=== PATIENT | female | born 1955 | race Caucasian/White ===

== ENCOUNTER 2017-05-23 15:58 | Outpatient (CLI) | payer BC ==
--- NOTE | 2017-05-23 17:19 | CT ---
LOW DOSE CT LUNG SCAN: HISTORY: The patient has a history of right lung malignancy and resection and COPD. COMPARISON: PET scan from 05/10/2015. FINDINGS: There are postoperative changes of the right upper lobe. There is what appears to be a partial lobec marylou. There is some dystrophic calcification lying along the medial aspect of the major fissure. Th e right upper lobe pulmonary nodule is no longer seen. There is fullness in the right hilar region. There are surgical clips in this region and along the right side of the mediastinum. There are righ t paratracheal nodes and some slightly prominent nodes at the level of the great vessels. These are fairly similar in appearance to the previous PET scan examination. There are no pulmonary nodules identified. No pleural effusions. There are arthritic changes of the spine seen. Lung-RADS category 4C. The patient has known malignancy. There is more prominence to the right deanna r region, as compared to the prior examination. I am not certain whether this is related to partial lobectomy change or adenopathy in this region. A contrast CT examination would be recommended for as sessment. POS: [facility]
== END 2017-05-23 15:59 | disposition home or self-care (01) ==
LOC: CT 15:58
PROVIDERS: ATTEND Family Medicine
DX: Z12.2 Encounter for screening for malignant neoplasm of respiratory organs (principal)
CPT/HCPCS: G0297

== ENCOUNTER 2017-10-11 06:06 | Inpatient (IN) | payer BC ==
[2017-10-11 06:28] LABS: Hemoglobin 15.2 g/dL (12.0-16.0); Mean Corpuscular HGB CONC 34.1 g/dL (32.0-36.0); Mean Corpuscular Hemoglobin 36.2 pg (27.0-31.0); Mean Platelet Volume 7.1 fL (7.4-10.4); Platelet Count 191 thou/uL (130-400); RBC Distribution Width 12.3 % (11.5-14.5); White Blood Cell (WBC) Count 9.8 thou/uL (4.8-10.8)
[2017-10-11 06:34] LABS: PTT 24.9 SEC (22.9-36.1); Prothrombin Time 13.6 SEC (12.0-14.7)
[2017-10-11 06:52] LABS: #Eosinphils 0.2 thou/uL (0.0-0.7); #Lymphocytes 1.9 thou/uL (1.20-3.40); #Monocytes 0.6 thou/uL (0.11-0.59); %Basophils 0.4 % (0.0-1.0); %Eosinophils 2.1 % (0.0-10.0); %Lymphocytes 19.5 % (21.0-51.0); %Monocytes 6.4 % (0.0-10.0); %Neutrophils 71.6 % (42.0-75.0); MDiff Complete? YES; Macrocytosis SLIGHT = 6-15 cells (100X) (0-5/hpf); PLT Morphology Comment Appears Adequate
[2017-10-11 06:59] LABS: Troponin I Less than 0.010 ng/mL (< 0.028)
[2017-10-11 07:03] LABS: CKMB 8.7 ng/mL (0-6.6)
[2017-10-11 07:05] LABS: ALT (SGPT) 18 U/L (8-55); AST (SGOT) 33 U/L (5-34); Albumin 4.2 g/dL (3.4-4.8); Alkaline Phosphatase 68 U/L (40-150); Anion Gap 11 mmol/L (10-20); BUN (Urea Nitrogen) 14 mg/dL (9.8-20.1); Bilirubin, Total 0.4 mg/dL (0.2-1.2); CK (CPK) 484 U/L (29-168); Calc. Creatinine Clearance 0 mL/min (70-130); Calcium 9.4 mg/dL (7.8-10.44); Carbon Dioxide 34 mmol/L (23-31); Chloride 99 mmol/L (98-107); Estimated GFR-MDRD 75; Globulin 3.8 g/dL (2.4-3.5); Glucose 127 mg/dL (80-115); Sodium 139 mmol/L (136-145)
[2017-10-11 07:58] LABS: Acetaminophen Less than 6.0 mcg/mL (10.0-30.0); Alcohol Less than 10 mg/dL (Less than 10); Salicylate Less than 8.0 mg/dL (15.0-30.0)
[2017-10-11] MEDS ORDERED: Naloxone HCl 0.4 mg/ml Vial ONE (07:59)
[2017-10-11] MEDS ORDERED: Acetaminophen 325 MG TAB PO PRN (08:06)
[2017-10-11] MEDS ORDERED: Ondansetron HCl/PF 4 MG/2 ML Vial IVP PRN (08:06)
--- NOTE | 2017-10-11 08:11 | RAD ---
SINGLE VIEW OF THE CHEST: COMPARISON: 10/06/15. HISTORY: Dyspnea. FINDINGS: A single view of the chest shows a cardiomediastinal silhouette which is upper limits of normal in si ze. Atelectasis is seen in the right lung base, unchanged. A small right pleural effusion may also be present. No left pleural effusion is seen. Hardware is seen in the cervical spine. IMPRESSION: Right basilar atelectasis with possible small adjacent pleural effusion. POS: [facility]
--- NOTE | 2017-10-11 08:36 | CT ---
PRELIMINARY REPORT/[facility]/EMERGENTY AFTER-HOURS PROCEDURE Addendum created by Gilson Mayo MD on 10/11/2017 6:32 AM Central Time ([place] & [place]) The findings were verbally communicated via telephone conference with Dr. Soni Olivares at 7:30 AM EDT on 10/11/2017. The findings were acknowledged and understood. Initial Report created on 10/11/2017 6:29 AM Central Time ([place] & [place]) CT Head Without Intravenous Contrast EXAM DATE/TIME: 10/11/2017 6:17 AM CLINICAL HISTORY: 62 years old, female; Speech disturbance and weakness, extremity; Right; Slurred speech; Stroke alert . PT was last seen normal last night around 2144. right arm weakness. multiple falls over the weekend . TECHNIQUE: Axial computed tomography images of the head/brain without intravenous contrast. COMPARISON: No relevant prior studies available. FINDINGS: Brain: No midline shift, mass effect, or intracranial hemorrhage. Brain parenchyma unremarkable. Ventricles: Unremarkable. No ventriculomegaly. Bones/joints: Unremarkable. Sinuses: Unremarkable. Mastoid air cells: Unremarkable. Soft tissues: Unremarkable. Vasculature: Bilateral, intracranial, internal carotid artery atherosclerotic calcifications. IMPRESSION: Unremarkable CT head without contrast. ASPECTS Score is 10. MR head may be helpful if there remains strong clinical suspicion for recent ischemic infarct (and th ere are no contraindications). Thank you for allowing us to participate in the care of your patient. Dictated and Authenticated by: Gilson Mayo MD 10/11/2017 6:29 AM Central Time ([place] & [place]) FINAL REPORT STROKE ALERT CT BRAIN WITHOUT CONTRAST: IMPRESSION: I agree with the preliminary report provided. No acute intracranial abnormality is demonstrated. POS: [facility]
--- NOTE | 2017-10-11 08:45 | CT ---
PRELIMINARY REPORT/[facility]/EMERGENTY AFTER-HOURS PROCEDURE Addendum created by Gilson Mayo MD on 10/11/2017 7:06 AM Central Time ([place] & [place]) CT Angiography Head With Intravenous Contrast CT Angiography Neck With Intravenous Contrast CLINICAL HISTORY: 62 years old, female; Speech disturbance and weakness; Slurred speech; Stroke alert . PT was last seen normal last night around 2144. PT is having some slurred speech with some right ar m weakness. PT has had multiple falls over the weekend. TECHNIQUE: Axial computed tomographic angiography images of the head with intravenous contrast using CT angiography protocol. MIP reconstructed images were created and reviewed. COMPARISON: CT Head without contrast 10/11/2017 6:17 AM FINDINGS: Head: Both intracranial vertebral, basilar, and both posterior cerebral arteries appear unremarkable. Bilateral, intracranial, internal carotid artery atherosclerotic calcifications. Both middle cerebra l and both anterior cerebral arteries are unremarkable. Neck: Aortic arch shows mild calcified atherosclerotic plaque. Left subclavian artery origin shows moderate calcified atherosclerotic plaque causing no significant stenosis. Both vertebral artery cervical segment is unremarkable. Right carotid artery bifurcation shows mild calcified atherosclerotic plaque causing mild stenosis (a bout 10% diameter stenosis) of right common carotid artery's distal-most aspect. Left carotid artery bifurcation shows moderate calcified atherosclerotic plaque causing mildto- moder ate stenosis (about 30-40% diameter stenosis by NASCET criteria) of left internal carotid artery's p roximal-most aspect. Anterior cervical spinal fusion hardware at C4-C7. Partially-imaged bilateral pleural effusions. Multiple surgical clips in right pulmonary hilum. IMPRESSION: 1. CTA head with contrast shows no large intracranial arterial occlusion. 2. CTA neck with contrast shows: Right carotid artery bifurcation shows mild calcified atherosclerotic plaque causing mild stenosis (a bout 10% diameter stenosis) of right common carotid artery's distal-most aspect. Left carotid artery bifurcation shows moderate calcified atherosclerotic plaque causing mild tomodera te stenosis (about 30-40% diameter stenosis by NASCET criteria) of left internalcarotid artery's prox imal-most aspect. Left subclavian artery origin shows moderate calcified atherosclerotic plaque causing no significant stenosis. MR head may be helpful if there remains strong clinical suspicion for recent ischemic infarct (and th ere are no contraindications). This Report Contains Findings That May Be Critical To Patient Care. The findings were verbally commun icated via telephone conference with Dr. Soni Olivares at 7:48 AM EDT on 10/11/2017. The findings were a cknowledged and understood. Initial Report created on 10/11/2017 6:45 AM Central Time ([place] & [place]) CT Angiography Head With Intravenous Contrast TECHNIQUE: Axial computed tomographic angiography images of the head with intravenous contrast using CT angiography protocol. MIP reconstructed images were created and reviewed. COMPARISON: CT Brain WO Con 10/11/2017 6:17 AM Thank you for allowing us to participate in the care of your patient. Dictated and Authenticated by: Gilson Mayo MD 10/11/2017 6:45 AM Central Time ([place] & [place]) FINAL REPORT CTA OF THE HEAD AND CTA OF THE NECK UTILIZING IV CONTRAST AND 3D VOLUME RENDERING: IMPRESSION: I agree with the preliminary report provided. No hemodynamically significant stenosis, occlusion, or aneurysmal formation is demonstrated. No appreciable narrowing is seen involving the right internal carotid artery. There is some eccentric partially calcified atherosclerotic plaque involving the pr oximal left internal carotid artery with no hemodynamically significant stenosis. The vertebral homero toña appear patent throughout their visualized course. Incidental note is made of an ADCF plate exte nding from C4 through C7. No area of abnormal enhancement is seen within the brain. No definite abn ormality is seen within the prevertebral soft tissues or along the aerodigestive tract. No lymphaden opathy is evident. There is a small left pleural effusion. There are patchy opacities within the le ft upper lobe which may reflect pneumonia. Recommend correlation. POS: [facility]
--- NOTE | 2017-10-11 08:57 | HP ---
PRIMARY CARE PROVIDER: Dr. Nahid Mitchell. CHIEF COMPLAINT: Referred to the [facility] service by [facility] for po ssible stroke. HISTORY OF PRESENT ILLNESS: Patient's illness started 2 days ago with slurred speech, difficulty sta nding up, she fell yesterday. She had somewhat improved speech, was able to stand, but was noted to be ataxic. This morning, her speech was very slurred. She could not get up and could not stand up. She gives no history of double vision. She is a bit somnolent, was noted to have O2 saturations in the 70s and 80s. Currently, is 90 on O2. She has a long history of smoking. She had positive neuro logical finding, she is being admitted to the hospital. PAST MEDICAL HISTORY: Includes lung cancer in 2016, post-thoracotomy. She has had C-spine surgery a nd L-spine surgery. She states she does not have emphysema or obstructive lung disease, but she does have inhalers. She has hypertension. MEDICATIONS: Takes quinapril, she takes tramadol, but is not clear on all of her medicines. Her hus band has been asked to go home and pick them up and bring them back. ALLERGIES: She has no allergies to medicines. FAMILY HISTORY: Her mother had hypertension and COPD. She states her mother and father were both he vinay drinkers. SOCIAL HISTORY: , FULL CODE status. , next of kin, at bedside. She smokes 1 pack a d ay. She says she drinks 2-3 drinks a week. REVIEW OF SYSTEMS: Constitutional: Some dizziness arising, no fainting, no headaches, no fever or c hills. Eyes: No double vision, blurred vision, flashing lights. Ears, Nose, and Throat: No ear pa in or drainage. No nasal bleeding. No trouble swallowing. Cardiac: No chest pain, orthopnea, or p aroxysmal nocturnal dyspnea. Respirations: She states she has wheezing at times, dyspnea on exertio n, uses an inhaler. No cough or productive cough. Gastrointestinal: No nausea, vomiting, diarrhea, or constipation. Genitourinary: No hematuria, dysuria, or nocturia. Musculoskeletal: She states she occasionally has gout in her left foot. Neurologic: No previous history of stroke, seizures, or focal weakness. Psychiatric: No anxiety, depression. Skin: No bruising, bleeding, or rash. Heme /Lymph: No tender or swollen lymph nodes in axilla, inguinal, or cervical area. PHYSICAL EXAMINATION: GENERAL: She falls asleep easily. GENERAL: Easily aroused. VITAL SIGNS: Blood pressure 153/86, pulse 74, respirations 16. HEENT: Examination of her head, eyes, ears, nose, and throat reveal pupils equal, round, and reactiv e to light. Extraocular movements are intact. Sclerae white. Tympanic membranes are clear. Nose i s clear. Oral mucous membranes are wet. Dental hygiene is good. NECK: Supple, without jugular venous distention, adenopathy, or thyromegaly. CHEST: Hyperresonant with wheezes in all lung shin. HEART: Had a regular rate and rhythm. First and second heart sounds are clear. There are no apprec iated murmurs or gallops. ABDOMEN: Soft, bowel sounds are normal. There is no hepatosplenomegaly, no mass, no rebound, no bru its. EXTREMITIES: Reveal no cyanosis, clubbing, or edema. PULSES: Carotid, radial, femoral, and dorsalis pedis pulses were palpable. The right pedal pulse wa s stronger than the left pedal pulse. SKIN: Warm and dry without bruises or rashes. HEME/LYMPH: No tender or swollen lymph nodes in axilla, inguinal, or cervical area. NEUROLOGICAL: She had a mild left central 7th. She had bilateral downgoing toes. Strength was monie sly symmetric upper and lower extremities, but she had a poor [id number] testing on the left upper extremity compared to the right. IMAGING: Brain CT reveals no acute intracranial abnormality, reviewed by me. Chest x-ray, scarring in the right hemidiaphragm, stable compared to previous x-ray 2 years ago. No cardiomegaly, CHF, or infiltrate noted, reviewed by me. LABORATORY DATA: CBC reveals a normal white count, hemoglobin, and platelet count with mildly elevat ed MCV. INR is 1.0. Comp metabolic profile reveals blood sugar 127, otherwise unremarkable. CK was 484. Troponins are normal. Toxicology has been sent, not available. ADMITTING DIAGNOSES: 1. Cerebrovascular accident. 2. Chronic obstructive pulmonary disease, acute exacerbation. 3. Acute respiratory failure with hypoxemia. 4. Hypertension. 5. Tobacco abuse. PLAN: Aspirin has been given. CT angio of the head is pending. MRI will be done. Medicines will b e reviewed when available. EKG will be reviewed when available. Respiratory therapy with DuoNeb q.6 hours and Zithromax will be started. We will hold off on steroids at the present time.
[2017-10-11] MEDS ORDERED: Azithromycin 500 MG in Sodium Chloride 0.9% 250 ML 250 ML IVPB SCH (09:00)
[2017-10-11 09:40] LABS: Troponin I Less than 0.010 ng/mL (< 0.028)
[2017-10-11] MEDS: Aspirin 325 mg Enteric Coated Tablet PO SCH (10:08)
[2017-10-11] MEDS: Enoxaparin Sodium 40 MG/0.4 ML SYRINGE SC SCH (12:26)
[2017-10-11 12:48] LABS: Bilirubin Negative (Negative); Blood, Urine Negative (Negative); Clarity CLEAR (Clear); Glucose, Urine (Dipstick) Negative (Negative); Leukocyte Negative (Negative); Nitrite Negative (Negative); Protein, Urine (Dipstick) Negative (Neg-Trace); Urobilinogen 0.2 mg/dL (0.2-1.0)
[2017-10-11 12:53] LABS: Bacteria/HPF None Seen HPF (None Seen); Hyaline Casts/LPF 0-3 HYALINE CAST LPF (0-3 Hyaline); Squamous Epithelial 0-3 HPF (0-3); WBC/HPF 0-3 HPF (0-3)
[2017-10-11 12:57] LABS: Amphetamine Not Detected (NotDetected); Barbiturates Screen Not Detected (NotDetected); Benzodiazepine Screen Detected (NotDetected); Cocaine Metabolite Screen Not Detected (NotDetected); Medtox Control Line Valid? VALID (VALID); Medtox Reader # READER 1; Methadone Not Detected (NotDetected); Methamphetamine Not Detected (NotDetected); Opiate Screen Detected (NotDetected); Oxycodone Screen Not Detected (NotDetected); Phencyclidine (PCP) Not Detected (NotDetected); THC/Cannabinoid Screen Not Detected (NotDetected); Tricyclic Screen Not Detected (NotDetected)
[2017-10-11 13:08] LABS: Troponin I Less than 0.010 ng/mL (< 0.028)
[2017-10-11] MEDS ORDERED: ISOVUE-370 76%-LOCM 1 ML ONE (13:54)
[2017-10-11] MEDS: Azithromycin 500 MG in Sodium Chloride 0.9% 250 ML 250 ML IVPB SCH (13:57)
[2017-10-11] MEDS ORDERED: PROVENTIL INHALER 6.7 G (200 INHALATIONS) INH PRN (16:43)
[2017-10-11] MEDS: Gabapentin 400 MG CAP PO SCH ×2 (17:01→19:59)
--- NOTE | 2017-10-11 17:26 | MRI ---
MRI OF THE BRAIN WITHOUT CONTRAST 10/11/17 COMPARISON: None. HISTORY: Right sided weakness and occasional slurred speech. Stroke. TECHNIQUE: Multiplanar and multisequence MR images are obtained of the brain without contrast. FINDINGS: The brain demonstrates normal signal intensity on all obtained sequences. No restricted diffusion is seen to suggest an acute infarction. There is no evidence of hydrocephalus, intracranial hemorrhage o r extra-axial fluid collection. The expected flow voids are present. The corpus callosum, pituitary, and craniocervical junction are unremarkable. The calvarium and overlying soft tissues are unremarkable. The visualized paranasal sinuses and masto id air cells are well aerated. IMPRESSION: No evidence of acute intracranial abnormality. POS: [facility]
--- NOTE | 2017-10-11 17:44 | PDOC.EVN ---
Event Note - Event Note Event Note: MRI- no infarct. O2 sat on RA as low as 60, cont nebs, add iv steroids, cont iv zithromax
[2017-10-11] MEDS: DULoxetine 30 MG CAP PO SCH (19:59)
[2017-10-11] MEDS: Mirtazapine 15 MG TAB PO SCH (19:59)
--- NOTE | 2017-10-11 23:05 | CON ---
DATE OF CONSULTATION: 10/11/2017 IMPRESSION: 1. Probable toxic or metabolic encephalopathy. 2. Hypertension. 3. Chronic obstructive pulmonary disease. 4. Cervical disk disease. 5. Hyperlipidemia. PLAN: 1. MRI of the brain. 2. Monitor clinical course. 3. Ammonia level. HISTORY OF PRESENT ILLNESS: Ms. Brown is a 62-year-old white female who reports that she awoke thi s morning and was quite amnestic. She apparently was having trouble talking and does not really reca ll what was going on around her. She denies that she had taken more medicine than normal. Over the past week, she had gone gambling and drunk alcohol, but had not had any alcohol on Tuesday or Tuesday . She apparently went to work yesterday, but did not have any particular problems. She reports at t his point, her brain still feels foggy and she is uncertain as to why this is going on. She had no o ther particular complaints of any focal neurologic symptoms, headache, nausea, or vomiting. Initial workup included a CTA of the brain, which showed 30% stenosis in the left internal carotid. All our labs studies were unremarkable other than her toxicology screen which was positive for opiates and be nzodiazepines. She is also on a high dose of gabapentin at 800 mg 3 times a day. PAST HISTORY: As listed above. ALLERGIES: None. SOCIAL HISTORY: Occasional alcohol use. FAMILY HISTORY: Noncontributory. REVIEW OF SYSTEMS: Otherwise, negative. PHYSICAL EXAMINATION: GENERAL: She is a well-nourished middle-aged woman sitting in the wheelchair, in no acute distress. VITAL SIGNS: Blood pressure 126/76, pulse 73, respirations 18, saturation is 94%, temperature 98.9. HEENT: Pupils are equal and reactive. Conjunctivae clear. Oropharynx clear. Cranium normocephalic . EXTREMITIES: No cyanosis. NEUROLOGIC: She is awake and cooperative. She appeared to be a bit sleepy. Cranial nerves were int act. Motor exam showed symmetric strength without fix or drifts. She had some mild asterixis on pos tural extension in both upper extremities. She can walk, but is bit unsteady. Sensation was intact. SUMMARY: A middle-aged woman who has a period of partial amnesia, lethargy, slurred speech, suggesti ng more of a toxic or metabolic encephalopathy. She is going for MRI at this point, suspect this vitor l clear up with the better time.
[2017-10-12 05:15] LABS: Anion Gap 12 mmol/L (10-20); BUN (Urea Nitrogen) 10 mg/dL (9.8-20.1); Calc. Creatinine Clearance 116 mL/min (70-130); Calcium 9.8 mg/dL (7.8-10.44); Carbon Dioxide 35 mmol/L (23-31); Cardiac Risk 3.1 (Less than 4.5); Chloride 96 mmol/L (98-107); Cholesterol 132 mg/dl (< 200 Desired); Estimated GFR-MDRD 82; Glucose 160 mg/dL (80-115); HDL Cholesterol 43 mg/dL (>60 Neg Risk); LDL Cholesterol, Calculated 77 mg/dL; Potassium 4.3 mmol/L (3.5-5.1); Sodium 139 mmol/L (136-145); Triglycerides 62 mg/dL (Less than 150)
[2017-10-12] MEDS: Levothyroxine Sodium 125 MCG TAB PO SCH (05:57)
[2017-10-12 06:07] LABS: Band 16 % (5-11); Hemoglobin 14.1 g/dL (12.0-16.0); Lymphocytes 9 % (21-51); MDiff Complete? YES; Mean Corpuscular HGB CONC 32.9 g/dL (32.0-36.0); Mean Corpuscular Hemoglobin 35.2 pg (27.0-31.0); Mean Platelet Volume 7.8 fL (7.4-10.4); Neutrophil 75 % (42-75); Platelet Count 209 thou/uL (130-400); RBC Distribution Width 12.4 % (11.5-14.5); Red Blood Cell (RBC) Count 4.02 mill/uL (4.20-5.40); White Blood Cell (WBC) Count 8.4 thou/uL (4.8-10.8)
[2017-10-12] MEDS: Acetaminophen/Codeine 30-300mg Tablet PO PRN ×2 (08:21→14:43)
[2017-10-12] MEDS: ALPRAZolam 0.5 MG TAB PO PRN ×2 (08:22→14:43)
[2017-10-12] MEDS: DULoxetine 30 MG CAP PO SCH ×2 (08:22→21:24)
[2017-10-12] MEDS: Atorvastatin Calcium 20 MG TAB PO SCH (08:22)
[2017-10-12] MEDS: Gabapentin 400 MG CAP PO SCH ×4 (08:22→21:25)
[2017-10-12] MEDS: Aspirin 325 mg Enteric Coated Tablet PO SCH (08:22)
[2017-10-12] MEDS: Amlodipine 5 MG TAB PO SCH (08:22)
[2017-10-12] MEDS: Chlorthalidone 25 MG TAB PO SCH (08:23)
[2017-10-12] MEDS: Enoxaparin Sodium 40 MG/0.4 ML SYRINGE SC SCH (08:24)
[2017-10-12] MEDS ORDERED: NORETHINDRONE AC ETH ESTRADIOL PO SCH (09:00)
--- NOTE | 2017-10-12 11:39 | PDOC.PN ---
- Subjective Encounter Start Date: 10/12/17 Encounter Start Time: 11:38 Subjective: much improved SOB - Objective Resuscitation Status: Resuscitation Status FULL:Full Resuscitation MAR Reviewed: Yes Vital Signs & Weight: Vital Signs (12 hours) Temp Pulse Resp BP BP Pulse Ox 10/12/17 11:33 73 16 92 L 10/12/17 08:23 120/71 10/12/17 08:22 64 120/71 10/12/17 08:12 97.9 F 64 16 94 L 10/12/17 07:36 97.9 F 64 16 120/71 94 L 10/12/17 06:19 75 16 93 L 10/12/17 04:00 98.6 F 76 20 130/61 92 L 10/12/17 00:41 67 12 90 L 10/12/17 00:00 97.3 F L 72 12 Weight Weight 197 lb 12.8 oz I&O: 10/11/17 10/12/17 10/13/17 06:59 06:59 06:59 Intake Total 480 Balance 480 Result Diagrams: 10/12/17 04:18 10/12/17 04:18 Phys Exam - Physical Examination Neck: no JVD Respiratory: clear to auscultation bilateral Cardiovascular: RRR, no significant murmur Gastrointestinal: soft, non-tender, positive bowel sounds Musculoskeletal: no edema Dx/Plan (1) Acute respiratory failure Code(s): J96.00 - ACUTE RESPIRATORY FAILURE, UNSP W HYPOXIA OR HYPERCAPNIA Status: Acute (2) COPD exacerbation Code(s): J44.1 - CHRONIC OBSTRUCTIVE PULMONARY DISEASE W (ACUTE) EXACERBATION Status: Acute (3) Tobacco abuse Code(s): Z72.0 - TOBACCO USE Status: Acute - Plan ABG pending -: cont nebs, steroids, antibx * .
[2017-10-12 11:57] LABS: CO2 Tension 58.1 mmHg (35.0-45.0); pH, Arterial 7.41 (7.35-7.45)
[2017-10-12 11:58] LABS: Actual Bicarbonate (HCO3a) 35.8 mEq/L (22-28); Base Excess (BEa) 8.9 mEq/L (-2.0 to +3.0); Carboxyhemoglobin (COHb) 1.7 gm% (0.0-3.0); Hemoglobin (Hb) 14.7 g/dL (12.0-16.0); O2 Tension (PaO2) 68.9 mmHg (> 80.0)
[2017-10-12 11:59] LABS: Puncture Site RBA
[2017-10-12] MEDS: Azithromycin 500 MG in Sodium Chloride 0.9% 250 ML 250 ML IVPB SCH (13:25)
[2017-10-12] MEDS: Mirtazapine 15 MG TAB PO SCH (21:25)
[2017-10-13] MEDS: Levothyroxine Sodium 125 MCG TAB PO SCH (05:54)
[2017-10-13] MEDS ORDERED: predniSONE 20 MG TAB PO SCH (08:00)
[2017-10-13 08:05] VITALS: TEMP 97.6
[2017-10-13] MEDS: Aspirin 325 mg Enteric Coated Tablet PO SCH (08:36)
[2017-10-13] MEDS: Atorvastatin Calcium 20 MG TAB PO SCH (08:36)
[2017-10-13] MEDS: DULoxetine 30 MG CAP PO SCH (08:36)
[2017-10-13] MEDS: Amlodipine 5 MG TAB PO SCH (08:36)
[2017-10-13] MEDS: Gabapentin 400 MG CAP PO SCH (08:36)
[2017-10-13] MEDS: Chlorthalidone 25 MG TAB PO SCH (08:37)
[2017-10-13] MEDS: Enoxaparin Sodium 40 MG/0.4 ML SYRINGE SC SCH (08:37)
[2017-10-13] MEDS: ALPRAZolam 0.5 MG TAB PO PRN (08:41)
[2017-10-13] MEDS: Acetaminophen/Codeine 30-300mg Tablet PO PRN (08:41)
[2017-10-13 08:42] VITALS: BP 136/73
--- NOTE | 2017-10-13 11:46 | DIS ---
TRANSFER OF CARE NOTE PRIMARY CARE PROVIDER: Dr. Nahid Mitchell DATE OF ADMISSION: 10/11/2017 DATE OF DISCHARGE: 10/13/2017 FINAL DIAGNOSES: 1. Acute respiratory failure with hypoxia. 2. Chronic obstructive pulmonary disease, acute exacerbation. 3. Tobacco abuse. 4. Hypertension. 5. Dyslipidemia. 6. Hypothyroidism. DISCHARGE MEDICATIONS: New medications; Dulera 150 two puffs b.i.d., Zithromax 500 mg 1 p.o. q.a.m. for 7 days, Medrol Dosepak start 10/14/2017. Old medications; acetaminophen with codeine 1 t.i.d. p. r.n., albuterol ProAir HFA 2 puffs q.4 hours p.r.n., Cymbalta 30 mg p.o. b.i.d., Lipitor 20 mg a day, levothyroxine 125 mcg a day, gabapentin 800 mg q.i.d., chlorthalidone 12.5 mg daily, quinapril 40 mg a day, alprazolam 0.5 mg t.i.d. p.r.n., Remeron 15 mg at bedtime, amlodipine 2.5 mg a day. ALLERGIES: No known drug allergies. PENDING AT THE TIME OF DISCHARGE: Nothing. CODE STATUS: Full. CONSULTATIONS: None. PROCEDURES: None. HOSPITAL COURSE: The patient presented with difficulty walking, slurred speech. Referred for possib le stroke out of the emergency room. She was noted in the emergency room to have O2 saturations in t he 70s and 80s. On my exam, she had wheezes and rhonchi in all shin. She had a brain CT and CT an giography done in the emergency room with no significant findings. A brain MRI was done which showed no evidence of a stroke. She was treated aggressively for her chronic obstructive pulmonary disease with tobacco cessation, nebs, steroids and antibiotics. Her lungs are now clear. She is desirous o f going home. Dr. Last did see her for Neurology. No evidence of any significant disease there. A lipid panel was done which showed a cholesterol 132, LDL 77, HDL 43 for a low cardiac risk. Her c hemistries were unremarkable. CBCs were unremarkable except for mild microcytosis. She is currently asymptomatic and doing well. She is being discharged on the aforementioned medicines. She has been told she needs to see Dr. Mitchell in follow up in 1 week.
[2017-10-13] MEDS ORDERED: Azithromycin 250 MG TAB PO SCH (12:00)
[2017-10-14] MEDS ORDERED: Azithromycin 250 MG TAB PO SCH (09:00)
== END 2017-10-13 12:47 | disposition home or self-care (01) | DRG 189 ==
LOC: ERS 06:06 → 2SE 09:23 → T4-A 10-12
PROVIDERS: ADMIT Internal Medicine; ATTEND Internal Medicine
DX: J96.01 Acute respiratory failure with hypoxia (principal); G93.40 Encephalopathy, unspecified; J44.1 Chronic obstructive pulmonary disease with (acute) exacerbation; I10 Essential (primary) hypertension; E78.5 Hyperlipidemia, unspecified; F17.210 Nicotine dependence, cigarettes, uncomplicated; Z85.118 Personal history of other malignant neoplasm of bronchus and lung; Z79.899 Other long term (current) drug therapy
CPT/HCPCS: 36415; 36416; 70450; 70496; 70498; 70551; 71045; 80048; 80053; 80061; 80306; 80307; 81001; 82553; 82805; 84484; 85025; 85610; 85730; 93005; 94640; 96374; G8978-GP-CL; G8979-GP-CJ; G8987-GO-CJ; G8988-GO-CI; G8996-GN-CH; G8997-GN-CH; J0456; J1650; J2310; J2920; J7050; J7506; J7620

== ENCOUNTER 2017-12-14 13:24 | Outpatient (CLI) | payer BC ==
--- NOTE | 2017-12-14 14:44 | CT ---
CT CHEST WITH IV CONTRAST: Date: 12/14/17 HISTORY: Lung cancer. Lung nodule. Abnormal pulmonary lung scan. Follow-up. COMPARISON: 05/23/17 and 03/28/15. FINDINGS: Postoperative changes of the right lung are again demonstrated. Parenchymal scarring is stable. At th e right posterolateral lung base, a tiny, nonspecific subpleural nodule is stable compared to the mos t recent exam. A tiny, subpleural, noncalcified nodule at the anterolateral aspect of the left upper lobe is also stable compared to exams back to 03/28/15. In the area of concern, at the right hilum, vessels are opacified. No hilar mass is evident. Nonenlar ged lymph nodes are stable compared to previous exams. Within the partially visualized upper abdomen, the adrenal glands have a normal appearance. Cystic le mahsa of the spleen has enlarged slightly. There is calcification in the arterial structures. IMPRESSION: 1. Stable postoperative changes of the right lung. No evidence of hilar mass. 2. Tiny bilateral subpleural nodules are stable. No new masses. 3. Atherosclerosis. POS: [facility]
[2017-12-14] MEDS ORDERED: ISOVUE-370 76%-LOCM 1 ML ONE (16:30)
== END 2017-12-14 13:25 | disposition home or self-care (01) ==
LOC: BICMAMMO 13:24
PROVIDERS: ATTEND Family Medicine
DX: Z12.31 Encounter for screening mammogram for malignant neoplasm of breast (principal); Z08 Encounter for follow-up examination after completed treatment for malignant neoplasm; R91.8 Other nonspecific abnormal finding of lung field; R92.1 Mammographic calcification found on diagnostic imaging of breast; Z85.118 Personal history of other malignant neoplasm of bronchus and lung; Z98.890 Other specified postprocedural states
CPT/HCPCS: 71260; 77063; 77067

== ENCOUNTER 2018-05-22 17:43 | Inpatient (IN) | payer BC ==
[2018-05-22 18:21] LABS: Hemoglobin 13.3 g/dL (12.0-16.0); Mean Corpuscular HGB CONC 30.4 g/dL (32.0-36.0); Mean Corpuscular Hemoglobin 32.9 pg (27.0-31.0); Mean Platelet Volume 7.9 fL (7.4-10.4); Platelet Count 206 thou/uL (130-400); RBC Distribution Width 12.7 % (11.5-14.5); Red Blood Cell (RBC) Count 4.03 mill/uL (4.20-5.40); White Blood Cell (WBC) Count 13.3 thou/uL (4.8-10.8)
[2018-05-22 18:38] LABS: #Monocytes 1.1 thou/uL (0.11-0.59); #Neutrophils 10.1 thou/uL (1.40-6.50); %Basophils 0.2 % (0.0-1.0); %Eosinophils 0.2 % (0.0-10.0); %Lymphocytes 15.1 % (21.0-51.0); %Monocytes 8.6 % (0.0-10.0); MDiff Complete? YES; Macrocytosis SLIGHT = 6-15 cells (100X) (0-5/hpf); Platelet Morphology Comment Appears Adequate
[2018-05-22 18:40] LABS: ALT (SGPT) 20 U/L (8-55); AST (SGOT) 45 U/L (5-34); Albumin 4.1 g/dL (3.4-4.8); Alkaline Phosphatase 71 U/L (40-150); Anion Gap 15 mmol/L (10-20); BUN (Urea Nitrogen) 9 mg/dL (9.8-20.1); Bilirubin, Total 0.8 mg/dL (0.2-1.2); Calc. Creatinine Clearance 0 mL/min (70-130); Calcium 9.6 mg/dL (7.8-10.44); Carbon Dioxide 34 mmol/L (23-31); Chloride 94 mmol/L (98-107); Estimated GFR-MDRD 76; Globulin 3.4 g/dL (2.4-3.5); Glucose 126 mg/dL (80-115); Potassium 3.7 mmol/L (3.5-5.1); Protein, Total 7.5 g/dL (6.0-8.3); Sodium 139 mmol/L (136-145)
[2018-05-22 18:48] LABS: Acetaminophen Less than 6.0 mcg/mL (10.0-30.0); Alcohol Less than 10 mg/dL (Less than 10); Salicylate Less than 8.0 mg/dL (15.0-30.0)
[2018-05-22 19:11] LABS: Bilirubin Negative (Negative); Blood, Urine Moderate (Negative); Clarity CLOUDY (Clear); Glucose, Urine (Dipstick) Negative (Negative); Leukocyte Moderate (Negative); Nitrite Negative (Negative); Protein, Urine (Dipstick) 30 mg/dL (Neg-Trace); Specific Gravity, Urine 1.016 (1.002-1.036); pH, Urine 7.5 (5.0-9.0)
[2018-05-22 19:13] LABS: Bacteria/HPF 1+ HPF (None Seen); Hyaline Casts/LPF 7-10 HYALINE CAST LPF (0-3 Hyaline); Pathc Cast-AUWi Flag 2.04 (0-2.49); RBC/HPF GREATER THAN 50-TNTC HPF (0-3); WBC/HPF 21-50 HPF (0-3)
[2018-05-22] MEDS ORDERED: Azithromycin 250 MG TAB ONE (19:17)
[2018-05-22] MEDS ORDERED: cefTRIAXone\\ROCEPHIN 2 GM VIAL ONE (19:17)
[2018-05-22] MEDS ORDERED: Dexamethasone 10 MG/ML VIAL ONE (19:19)
--- NOTE | 2018-05-22 19:24 | CT ---
CT OF BRAIN PERFORMED WITHOUT CONTRAST ENHANCEMENT: History: Altered mental status. FINDINGS: The ventricular and cisternal system is within normal limits. There are no signs of intracerebral hem orrhage or extraaxial fluid collections. Mastoid air cells and visualized sinuses are clear. IMPRESSION: No acute intracranial abnormalities. POS: [facility]
[2018-05-22 19:27] LABS: Actual Bicarbonate (HCO3a) 33.6 mEq/L (22-28); Analyzer IN Cardio ER; Base Excess (BEa) 7.4 mEq/L (-2.0 to +3.0); CO2 Tension 53.6 mmHg (35.0-45.0); Calcium, Ionized 1.12 mmol/L (1.12-1.30); Carboxyhemoglobin (COHb) 4.5 gm% (0.0-3.0); Hemoglobin (Hb) 13.8 g/dL (12.0-16.0); O2 Tension (PaO2) 85.9 mmHg (> 80.0); Potassium - ABG Lab 3.02 mmol/L (3.70-5.30); pH, Arterial 7.42 (7.35-7.45)
[2018-05-22 19:28] LABS: Puncture Site RRA
--- NOTE | 2018-05-22 19:41 | RAD ---
PORTABLE CHEST: History: Sepsis. Hypoxia. Comparison: 10-11-17 FINDINGS: Heart size appears slightly enlarged. There is some pleural based parenchymal change along the right hemidiaphragm which appear chronic in nature. No definite acute process. IMPRESSION: Cardiomegaly with chronic lung change. POS: [facility]
[2018-05-22] MEDS ORDERED: Acetaminophen 325 MG TAB PO PRN (21:52)
[2018-05-22 22:09] VITALS: BMI 29.5
[2018-05-23] MEDS ORDERED: Acetaminophen 325 MG TAB PO PRN (00:23)
[2018-05-23] MEDS ORDERED: Senokot S 8.6-50 MG TAB PO PRN (00:23)
[2018-05-23] MEDS ORDERED: Bisacodyl 5 MG TAB PO PRN (00:23)
[2018-05-23] MEDS: Nicotine 14 MG PATCH TD SCH (05:53)
[2018-05-23 06:13] LABS: #Monocytes 0.3 thou/uL (0.11-0.59); #Neutrophils 10.6 thou/uL (1.40-6.50); %Basophils 0.1 % (0.0-1.0); %Eosinophils 0.2 % (0.0-10.0); %Monocytes 2.7 % (0.0-10.0); %Neutrophils 88.9 % (42.0-75.0); Hemoglobin 13.2 g/dL (12.0-16.0); Mean Corpuscular HGB CONC 32.2 g/dL (32.0-36.0); Mean Corpuscular Hemoglobin 34.9 pg (27.0-31.0); Mean Platelet Volume 7.6 fL (7.4-10.4); Platelet Count 191 thou/uL (130-400); RBC Distribution Width 12.5 % (11.5-14.5); Red Blood Cell (RBC) Count 3.79 mill/uL (4.20-5.40); White Blood Cell (WBC) Count 11.9 thou/uL (4.8-10.8)
--- NOTE | 2018-05-23 06:23 | HP ---
CHIEF COMPLAINT: Shortness of breath. HISTORY OF PRESENT ILLNESS: The patient initially presented to the hospital, this is per ER records, with complaints of motor deficits of her left arm weakness. However, when she came into the hospital, those symptoms were resolved. She then started complaining of shortness of breath. At this time, the patient's spouse mentioned increasing shortness of breath, cough, and wheezing for the past 3 or 4 days. I have been to the patient's room couple times to interview her, the patient initially was very sleepy and was unable to provide me a history. However, on the 2nd time, the patient stated that she has been very depressed and started crying, stating that she lost her very best friend recently. The patient states that her eyes are puffy because she has been crying for the past few days for her friend. She denies any fevers or chills. She does state that she has been short of breath and has been complaining of cough. PAST MEDICAL HISTORY: 1. She has a history of hypertension. 2. Chronic obstructive pulmonary disease. 3. Smoking history. 4. She has also had a history of lung cancer in 2016. PAST SURGICAL HISTORY: She has had a C-spine surgery, L-spine surgery, and she has had a thoracotomy. ALLERGIES: SHE HAS NO KNOWN DRUG ALLERGIES. MEDICATIONS: 1. She takes Cymbalta one p.o. b.i.d. 2. She takes gabapentin 800 mg q.i.d. 3. She takes amlodipine 2.5 daily. 4. Alprazolam 0.5 t.i.d. 5. She also takes atorvastatin one p.o. daily. 6. Flexeril 10 mg t.i.d. 7. Levothyroxine 125 mcg daily. 8. Quinapril 40 mg daily. 9. Remeron 15 mg one p.o. at bedtime. REVIEW OF SYSTEMS: All negative except for the ones mentioned above in HPI. FAMILY HISTORY: Mother had hypertension and COPD, and both her parents were heavy drinkers. SOCIAL HISTORY: She is currently , full code. Lives with her . She smokes a pack a day, and she states that yesterday she drank a pint of liquor; however, she states sometimes she drinks heavily and sometimes she does not. PHYSICAL EXAMINATION: VITAL SIGNS: As of the following, her temperature is 98.3, 70, 20, 92% on 2 L, 119/75. GENERAL: She is awake, alert, very emotional, oriented x2. HEENT: Normocephalic, atraumatic. No lymphadenopathy noted. Pupils are equal and reactive to light. CV: S1 and S2 present. No murmurs, rubs, or gallops. LUNGS: She has mild rhonchi and mild expiratory wheezing to her bilateral upper lung area. ABDOMEN: Soft and obese. Bowel sounds are present x2. EXTREMITIES: No edema. Pedal pulses are present x2. NEUROVASCULAR: No focal deficits noted. SKIN: She does have some bruising to her left elbow. The patient stated that she had a fall. LABORATORY RESULTS: WBCs of 13.3, hemoglobin of 13.3, hematocrit of 43.7, platelets are 206. Chemistry; sodium 139, potassium of 3.7, BUN of 9, creatinine 0.77. Her TSH is within normal range of 1.5. Her ammonia level was 37. She did have a chest x-ray done and it did not indicate any acute abnormalities. ASSESSMENT AND PLAN: The patient is a 63-year-old female who presents to the hospital with multiple symptoms. 1. Acute hypoxia. The patient was noted to have an oxygen saturation of 86% in the ER. However, at that time, an ABG was performed, which indicated a pO2 of 85.9 and a pCO2 of 53.6, pH was 7.42. She does have some mild wheezing on exam. I will start her on some low-dose steroids with DuoNeb. I will check a procalcitonin level. I do not believe she has any underlying infection. I will also check a BNP to make sure she has no cardiac events in terms of causing her to have shortness of breath. The patient will require maybe a 6-minute walk test to make sure she does not need any oxygen at home. I have educated her on smoking cessation. She understands; however, she is not ready to quit as of yet. The patient got very emotional. 2. Hypertension. We will continue her home medications. 3. Mild leukocytosis. We will continue to monitor. 4. Hypothyroidism. We will continue her home medications. 5. Deep venous thrombosis prophylaxis. We will put the patient on subcu heparin. 6. The patient stated that she fell at home. She denied passing out. She just stated that "I got drunk and I fell." I will order physical therapy for her. I will also put her on some thiamine and folic acid and we will also put her on nicotine patch. Job ID: [id number]
[2018-05-23 06:27] LABS: Anion Gap 13 mmol/L (10-20); BUN (Urea Nitrogen) 10 mg/dL (9.8-20.1); Calc. Creatinine Clearance 123 mL/min (70-130); Calcium 9.1 mg/dL (7.8-10.44); Carbon Dioxide 33 mmol/L (23-31); Chloride 95 mmol/L (98-107); Estimated GFR-MDRD Greater than 90; Glucose 155 mg/dL (80-115); Potassium 3.4 mmol/L (3.5-5.1); Sodium 138 mmol/L (136-145)
[2018-05-23] MEDS ORDERED: PROVENTIL INHALER 6.7 G (200 INHALATIONS) INH PRN (07:48)
[2018-05-23] MEDS ORDERED: Acetaminophen/Codeine 30-300mg Tablet PO PRN (07:48)
[2018-05-23] MEDS ORDERED: Cyclobenzaprine 10 MG TAB PO PRN (07:48)
[2018-05-23] MEDS ORDERED: Loperamide HCl 2 MG CAP PO PRN (07:49)
[2018-05-23] MEDS ORDERED: hydrALAZINE 20 MG/ML VIAL SLOW IVP PRN (07:49)
[2018-05-23] MEDS ORDERED: Loratadine 10 MG TAB PO PRN (07:49)
[2018-05-23] MEDS ORDERED: Zolpidem Tartrate 5 MG TAB PO PRN (07:49)
[2018-05-23] MEDS ORDERED: Cepastat Lozenges 1 LOZ PO PRN (07:49)
[2018-05-23] MEDS ORDERED: Calcium Carbonate 500 MG ChewTAB PO PRN (07:49)
[2018-05-23] MEDS ORDERED: Artificial Tears 18 DROP/0.9 ML EA EYE PRN (07:49)
[2018-05-23] MEDS ORDERED: Diabetic Tussin 200 MG/10 ML UDCUP PO PRN (07:49)
[2018-05-23] MEDS ORDERED: Sodium Chloride 0.65% Nasal 44 ML BOT EA NARE PRN (07:49)
[2018-05-23] MEDS ORDERED: Eucerin (Mineral Oil/Petrolatum,White) 30 gm Jar TOP PRN (07:49)
[2018-05-23] MEDS ORDERED: Metoclopramide HCl 10 MG/2 ML VIAL IVP PRN (07:50)
[2018-05-23] MEDS ORDERED: Potassium Chloride 20 MEQ TAB PO SCH (08:00)
[2018-05-23] MEDS: Gabapentin 400 MG CAP PO SCH ×4 (08:37→20:38)
[2018-05-23] MEDS: predniSONE 20 MG TAB PO SCH (08:37)
[2018-05-23] MEDS: Famotidine 20 MG TAB PO SCH ×2 (08:37→20:43)
[2018-05-23] MEDS: DULoxetine 30 MG CAP PO SCH ×2 (08:37→20:38)
[2018-05-23] MEDS: Thiamine 100 MG TAB PO SCH (08:38)
[2018-05-23] MEDS: Atorvastatin Calcium 20 MG TAB PO SCH (08:38)
[2018-05-23] MEDS: Enoxaparin Sodium 40 MG/0.4 ML SYRINGE SC SCH (08:38)
[2018-05-23] MEDS ORDERED: Indomethacin 25 mg Capsule PO SCH (09:00)
[2018-05-23] MEDS ORDERED: Levothyroxine Sodium 125 MCG TAB PO SCH (09:00)
[2018-05-23] MEDS ORDERED: Chlorthalidone 25 MG TAB PO SCH (09:00)
[2018-05-23] MEDS ORDERED: QUINAPRIL HCL 40 MG PO SCH (09:00)
[2018-05-23] MEDS: Levothyroxine Sodium 112 MCG TAB PO SCH (09:19)
[2018-05-23] MEDS: Levothyroxine Sodium 25 MCG TAB PO SCH (09:19)
[2018-05-23] MEDS: Amlodipine 5 MG TAB PO SCH (09:20)
--- NOTE | 2018-05-23 10:26 | PDOC.PN ---
- Subjective Encounter Start Date: 05/23/18 Encounter Start Time: 09:00 Patient seen and examined. No new complaints. No overnight events - Objective Resuscitation Status - Order Detail: 05/23/18 00:23 Resuscitation Status Routine Resuscitation Status: FULL: Full Resuscitation MAR Reviewed: Yes Vital Signs & Weight: Vital Signs (12 hours) Temp Pulse Resp BP BP Pulse Ox 05/23/18 09:20 139/79 05/23/18 09:05 124/55 L 05/23/18 08:00 93 L 05/23/18 07:41 98.6 F 68 18 97/62 91 L 05/23/18 06:37 70 16 94 L 05/23/18 06:00 119/75 05/23/18 03:02 98.3 F 70 20 119/75 92 L Weight Weight 193 lb 12.581 oz I&O: 05/22/18 05/23/18 05/24/18 06:59 06:59 06:59 Intake Total 100 Balance 100 Result Diagrams: 05/23/18 05:42 05/23/18 05:42 Phys Exam - Physical Examination Constitutional: NAD HEENT: PERRLA, moist MMs, sclera anicteric Neck: no JVD, supple Respiratory: no wheezing, no rales, no rhonchi Cardiovascular: RRR, no significant murmur, no rub Gastrointestinal: soft, non-tender, no distention, positive bowel sounds Musculoskeletal: no edema, pulses present Neurological: non-focal, normal sensation Lymphatic: no nodes Psychiatric: normal affect Skin: no rash, normal turgor Dx/Plan (1) Acute respiratory failure with hypoxia and hypercarbia Code(s): J96.01 - ACUTE RESPIRATORY FAILURE WITH HYPOXIA; J96.02 - ACUTE RESPIRATORY FAILURE WITH HYPERCAPNIA Status: Acute (2) COPD exacerbation Code(s): J44.1 - CHRONIC OBSTRUCTIVE PULMONARY DISEASE W (ACUTE) EXACERBATION Status: Acute (3) Hypokalemia Code(s): E87.6 - HYPOKALEMIA Status: Acute (4) UTI (urinary tract infection) Status: Acute (5) Anxiety and depression Code(s): F41.9 - ANXIETY DISORDER, UNSPECIFIED; F32.9 - MAJOR DEPRESSIVE DISORDER, SINGLE EPISODE, UNSPECIFIED Status: Chronic (6) Dyslipidemia Code(s): E78.5 - HYPERLIPIDEMIA, UNSPECIFIED Status: Chronic (7) Hypertension Code(s): I10 - ESSENTIAL (PRIMARY) HYPERTENSION Status: Chronic (8) Hypothyroidism Code(s): E03.9 - HYPOTHYROIDISM, UNSPECIFIED Status: Chronic (9) Macrocytosis Code(s): D75.89 - OTHER SPECIFIED DISEASES OF BLOOD AND BLOOD-FORMING ORGANS Status: Chronic (10) Tobacco abuse Code(s): Z72.0 - TOBACCO USE Status: Chronic - Plan cont current plan of care, continue antibiotics, respiratory therapy * continue levaquin * selected home meds * counselled to avoid alcohol and tobacco abuse * medication reviewed as below * symptomatic treatment. * replace potassium * ambulate as tolerated * monitor oxygen level on room air Review of Systems - Review of Systems ENT: negative: Ear Pain, Ear Discharge, Nose Pain, Nose Discharge, Nose Congestion, Mouth Pain, Mouth Swelling, Throat Pain, Throat Swelling, Other Respiratory: Cough. negative: Dry, Shortness of Breath, Hemoptysis, SOB with Excertion, Pleuritic Pain, Sputum, Wheezing Cardiovascular: negative: chest pain, palpitations, orthopnea, paroxysmal nocturnal dyspnea, edema, light headedness, other Gastrointestinal: negative: Nausea, Vomiting, Abdominal Pain, Diarrhea, Constipation, Melena, Hematochezia, Other Genitourinary: negative: Dysuria, Frequency, Incontinence, Hematuria, Retention , Other Musculoskeletal: negative: Neck Pain, Shoulder Pain, Arm Pain, Back Pain, Hand Pain, Leg Pain, Foot Pain, Other Skin: negative: Rash, Lesions, Ad, Bruising, Other - Medications/Allergies Allergies/Adverse Reactions: Allergies Allergy/AdvReac Type Severity Reaction Status Date / Time No Known Allergies Allergy Verified 10/11/17 10:06 Medications: Current Medications Acetaminophen (Tylenol) 650 mg PO Q4H PRN PRN Reason: Headache/Fever/Mild Pain (1-3) Acetaminophen/Codeine Phosphate (Tylenol #3) 1 tab PO Q8H PRN PRN Reason: Pain Albuterol Sulfate (Proventil Hfa) 2 puff INH Q4H PRN PRN Reason: SOB or Anxiety Albuterol/Ipratropium (Duoneb) 3 ml NEB [id number] [facility] Last Admin: 05/23/18 06:37 Dose: 3 ml Alprazolam (Xanax) 0.5 mg PO TID PRN PRN Reason: Pain Amlodipine Besylate (Norvasc) 2.5 mg PO DAILY [facility] Last Admin: 05/23/18 09:20 Dose: 2.5 mg Artificial Tears (Tears Naturale) 2 drop EA EYE PRN PRN PRN Reason: Dry Eyes Atorvastatin Calcium (Lipitor) 20 mg PO DAILY [facility] Last Admin: 05/23/18 08:38 Dose: 20 mg Bisacodyl (Dulcolax) 10 mg PO DAILYPRN PRN PRN Reason: Constipation Calcium Carbonate (Tums) 1,000 mg PO Q4H PRN PRN Reason: Heartburn or Indigestion Cyclobenzaprine HCl (Flexeril) 10 mg PO TID PRN PRN Reason: Muscle Spasm Duloxetine HCl (Cymbalta) 30 mg PO BID [facility] Last Admin: 05/23/18 08:37 Dose: 30 mg Enoxaparin Sodium (Lovenox) 40 mg SC 0900 [facility] Last Admin: 05/23/18 08:38 Dose: 40 mg Famotidine (Pepcid) 20 mg PO BID [facility] Last Admin: 05/23/18 08:37 Dose: 20 mg Gabapentin (Neurontin) 800 mg PO QID [facility] Last Admin: 05/23/18 08:37 Dose: 800 mg Guaifenesin (Robitussin Sf) 200 mg PO Q4H PRN PRN Reason: Cough Hydralazine HCl (Apresoline) 10 mg SLOW IVP Q4H PRN PRN Reason: SBP > 180 and HR < 70 Levofloxacin 500 mg/ Device 100 mls @ 100 mls/hr IVPB Q24HR [facility] Stop: 05/27/18 05:45 Last Admin: 05/23/18 05:53 Dose: 100 mls Levothyroxine Sodium (Synthroid) 112 mcg PO 0900 [facility] Last Admin: 05/23/18 09:19 Dose: 112 mcg Levothyroxine Sodium (Synthroid) 25 mcg PO 0900 [facility] Last Admin: 05/23/18 09:19 Dose: 25 mcg Loperamide HCl (Imodium) 2 mg PO PRN PRN PRN Reason: Diarrhea/Loose Stools Loratadine (Claritin) 10 mg PO DAILYPRN PRN PRN Reason: Sinus Symptoms Metoclopramide HCl (Reglan) 10 mg IVP Q6H PRN PRN Reason: Nausea/Vomiting Mineral Oil/White Petrolatum (Eucerin Cream) 0 gm TOP BIDPRN PRN PRN Reason: Dry Skin Mirtazapine (Remeron) 15 mg PO HS [facility] Nicotine (Nicoderm Patch) 14 mg TD Q24HR [facility] Last Admin: 05/23/18 05:53 Dose: 14 mg Prednisone (Prednisone) 20 mg PO QAM-WM [facility] Stop: 05/25/18 09:00 Last Admin: 05/23/18 08:37 Dose: 20 mg Senna/Docusate Sodium (Senokot S) 2 tab PO BIDPRN PRN PRN Reason: Constipation Sodium Chloride ([place] Nasal [place] 0.65%) 0 ml EA NARE QIDPRN PRN PRN Reason: Nasal Congestion Sodium Chloride (Flush - Normal Saline) 10 ml IVF Q12HR [facility] Last Admin: 05/23/18 08:38 Dose: 10 ml Sodium Chloride (Flush - Normal Saline) 10 ml IVF PRN PRN PRN Reason: Saline Flush Thiamine HCl (Thiamine) 100 mg PO DAILY [facility] Last Admin: 05/23/18 08:38 Dose: 100 mg Throat Lozenges (Cepastat Lozenges) 1 penelope PO Q2H PRN PRN Reason: Sore Throat Zolpidem Tartrate (Ambien) 5 mg PO HSPRN PRN PRN Reason: Insomnia
[2018-05-23] MEDS: ALPRAZolam 0.5 MG TAB PO PRN (17:15)
[2018-05-23] MEDS ORDERED: Mirtazapine 15 MG TAB PO SCH (21:00)
[2018-05-24] MEDS: Nicotine 14 MG PATCH TD SCH (05:43)
[2018-05-24 06:22] LABS: #Basophils 0.1 thou/uL (0.0-0.2); #Lymphocytes 1.8 thou/uL (1.20-3.40); #Monocytes 0.9 thou/uL (0.11-0.59); #Neutrophils 8.1 thou/uL (1.40-6.50); %Basophils 0.5 % (0.0-1.0); %Eosinophils 0.1 % (0.0-10.0); %Lymphocytes 16.8 % (21.0-51.0); %Monocytes 8.1 % (0.0-10.0); %Neutrophils 74.5 % (42.0-75.0); Hemoglobin 13.6 g/dL (12.0-16.0); Mean Corpuscular HGB CONC 32.6 g/dL (32.0-36.0); Mean Corpuscular Hemoglobin 34.8 pg (27.0-31.0); Mean Platelet Volume 7.6 fL (7.4-10.4); Platelet Count 227 thou/uL (130-400); RBC Distribution Width 12.6 % (11.5-14.5); Red Blood Cell (RBC) Count 3.89 mill/uL (4.20-5.40); White Blood Cell (WBC) Count 10.9 thou/uL (4.8-10.8)
[2018-05-24 07:08] LABS: ALT (SGPT) 17 U/L (8-55); AST (SGOT) 28 U/L (5-34); Albumin 3.8 g/dL (3.4-4.8); Alkaline Phosphatase 60 U/L (40-150); BUN (Urea Nitrogen) 19 mg/dL (9.8-20.1); Bilirubin, Total 0.4 mg/dL (0.2-1.2); Calc. Creatinine Clearance 105 mL/min (70-130); Calcium 9.4 mg/dL (7.8-10.44); Estimated GFR-MDRD 76; Globulin 3.1 g/dL (2.4-3.5); Glucose 127 mg/dL (80-115); Protein, Total 6.9 g/dL (6.0-8.3)
[2018-05-24 07:17] LABS: Anion Gap 12 mmol/L (10-20); Carbon Dioxide 36 mmol/L (23-31); Chloride 96 mmol/L (98-107); Potassium 3.4 mmol/L (3.5-5.1); Sodium 141 mmol/L (136-145)
[2018-05-24] MEDS: Enoxaparin Sodium 40 MG/0.4 ML SYRINGE SC SCH (08:26)
[2018-05-24] MEDS: Levothyroxine Sodium 25 MCG TAB PO SCH (08:27)
[2018-05-24] MEDS: Levothyroxine Sodium 112 MCG TAB PO SCH (08:27)
[2018-05-24] MEDS: Atorvastatin Calcium 20 MG TAB PO SCH (08:27)
[2018-05-24] MEDS: DULoxetine 30 MG CAP PO SCH (08:27)
[2018-05-24] MEDS: Famotidine 20 MG TAB PO SCH (08:27)
[2018-05-24] MEDS: predniSONE 20 MG TAB PO SCH (08:27)
[2018-05-24] MEDS: Gabapentin 400 MG CAP PO SCH (08:27)
[2018-05-24] MEDS: Thiamine 100 MG TAB PO SCH (08:27)
[2018-05-24] MEDS: Amlodipine 5 MG TAB PO SCH (08:27)
[2018-05-24] MEDS: ALPRAZolam 0.5 MG TAB PO PRN (08:31)
--- NOTE | 2018-05-24 11:38 | DIS ---
DATE OF ADMISSION: 05/22/2018 DATE OF DISCHARGE: 05/24/2018 PRIMARY CARE PHYSICIAN: Dr. Nahid Mitchell. DISCHARGE DISPOSITION: Home. PRIMARY DISCHARGE DIAGNOSES: 1. Acute respiratory failure with hypoxia, resolved. 2. Chronic obstructive pulmonary disease exacerbation, controlled. 3. Urinary tract infection. 4. Hypokalemia. SECONDARY DISCHARGE DIAGNOSES: Tobacco abuse disorder, macrocytosis, alcohol abuse, hypothyroidism, hypertension, dyslipidemia, anxiety, depression, and COPD. PRIMARY PROCEDURE/OPERATION: None. RADIOLOGICAL INVESTIGATION: Chest x-ray normal. CT brain negative. SIGNIFICANT LABORATORY DATA: Hemoglobin 13.6. Creatinine 0.77. LFT normal. TSH 1.5. Urinalysis consistent with UTI. Urine culture negative. Blood culture negative. DISCHARGE MEDICATIONS: 1. ProAir HFA 2 puffs q.4 hourly p.r.n. 2. Tylenol No. 3 one tablet q.8 hourly p.r.n. 3. Xanax 0.5 mg t.i.d. p.r.n. 4. Amlodipine 2.5 mg p.o. daily. 5. Lipitor 20 mg p.o. daily. 6. Chlorthalidone 25 mg p.o. daily. 7. Flexeril 10 mg t.i.d. p.r.n. 8. Cymbalta 30 mg b.i.d. 9. Gabapentin 800 mg p.o. q.i.d. 10. Indomethacin 25 mg b.i.d. 11. Levothyroxine 137 mcg p.o. daily. 12. Remeron 15 mg at bedtime. 13. Quinapril 40 mg p.o. daily. 14. Mucinex 600 mg twice daily for 7 days. 15. Atrovent HFA 2 puffs q.6 hourly. 16. Levaquin 500 mg p.o. daily for 7 days. 17. Dulera 2 puff inhalation b.i.d. 18. Prednisone 20 mg p.o. daily for 7 days. 19. Thiamine 100 mg p.o. daily. CONTRAINDICATION: None. CODE STATUS: Full code. INPATIENT WORLD LANGUAGE TEACHER: None. ALLERGIES: NO KNOWN DRUG ALLERGIES. DISCHARGE PLAN: Posthospital, the patient will follow up with primary care physician in 1 week. HOSPITAL COURSE: This is a 63-year-old female, who was admitted by Dr. Gretchen Santo, please see her H and P for further detail. The patient was admitted for increasing shortness of breath, cough, and she was found with COPD exacerbation. She was also hypoxic on arrival to emergency room. The patient was treated with steroid IV antibiotic therapy and respiratory therapy, and within 24 to 48 hours, the patient's condition significantly improved. The patient was no longer requiring oxygen, she was ambulatory, tolerating p.o. well. The patient also had abnormal urinalysis, which was suggestive of UTI and that is why she was treated with Levaquin as well. So far, culture is negative. Today, the patient is doing much better. She is on room air. She is expressing her wish to go home today. I have seen and examined the patient at bedside today. Her vitals are stable. Her physical examination is normal. Discharge instruction including smoking cessation and alcohol cessation is given. All new medication prescription will be sent to her pharmacy. Overall, the patient is medically stable for discharge today. Job ID: [id number]
--- NOTE | 2018-05-24 11:56 | PDOC.PN ---
- Subjective Encounter Start Date: 05/24/18 Encounter Start Time: 10:10 Patient seen and examined. No new complaints. No overnight events - Objective Resuscitation Status - Order Detail: 05/23/18 00:23 Resuscitation Status Routine Resuscitation Status: FULL: Full Resuscitation MAR Reviewed: Yes Vital Signs & Weight: Vital Signs (12 hours) Temp Pulse Resp BP Pulse Ox 05/24/18 08:27 86 05/24/18 08:00 98.6 F 86 18 133/70 98 05/24/18 07:22 89 16 96 Weight Weight 193 lb 12.581 oz I&O: 05/23/18 05/24/18 05/25/18 06:59 06:59 06:59 Intake Total 100 460 Balance 100 460 Result Diagrams: 05/24/18 06:08 05/24/18 06:08 Phys Exam - Physical Examination Constitutional: NAD HEENT: moist MMs, sclera anicteric Neck: no JVD, supple Respiratory: no wheezing, no rales, no rhonchi Cardiovascular: RRR, no significant murmur, no rub Gastrointestinal: soft, non-tender, no distention, positive bowel sounds Musculoskeletal: no edema, pulses present Neurological: non-focal, normal sensation Psychiatric: normal affect, A&O x 3 Skin: no rash, normal turgor Dx/Plan (1) Acute respiratory failure with hypoxia and hypercarbia Code(s): J96.01 - ACUTE RESPIRATORY FAILURE WITH HYPOXIA; J96.02 - ACUTE RESPIRATORY FAILURE WITH HYPERCAPNIA Status: Acute (2) COPD exacerbation Code(s): J44.1 - CHRONIC OBSTRUCTIVE PULMONARY DISEASE W (ACUTE) EXACERBATION Status: Acute (3) Hypokalemia Code(s): E87.6 - HYPOKALEMIA Status: Acute (4) UTI (urinary tract infection) Status: Acute (5) Anxiety and depression Code(s): F41.9 - ANXIETY DISORDER, UNSPECIFIED; F32.9 - MAJOR DEPRESSIVE DISORDER, SINGLE EPISODE, UNSPECIFIED Status: Chronic (6) Dyslipidemia Code(s): E78.5 - HYPERLIPIDEMIA, UNSPECIFIED Status: Chronic (7) Hypertension Code(s): I10 - ESSENTIAL (PRIMARY) HYPERTENSION Status: Chronic (8) Hypothyroidism Code(s): E03.9 - HYPOTHYROIDISM, UNSPECIFIED Status: Chronic (9) Macrocytosis Code(s): D75.89 - OTHER SPECIFIED DISEASES OF BLOOD AND BLOOD-FORMING ORGANS Status: Chronic (10) Tobacco abuse Code(s): Z72.0 - TOBACCO USE Status: Chronic - Plan cont current plan of care, continue antibiotics, respiratory therapy * medication reviewed as below * symptomatic treatment * see discharge xavier Review of Systems - Review of Systems ENT: negative: Ear Pain, Ear Discharge, Nose Pain, Nose Discharge, Nose Congestion, Mouth Pain, Mouth Swelling, Throat Pain, Throat Swelling, Other Respiratory: negative: Cough, Dry, Shortness of Breath, Hemoptysis, SOB with Excertion, Pleuritic Pain, Sputum, Wheezing Cardiovascular: negative: chest pain, palpitations, orthopnea, paroxysmal nocturnal dyspnea, edema, light headedness, other Gastrointestinal: negative: Nausea, Vomiting, Abdominal Pain, Diarrhea, Constipation, Melena, Hematochezia, Other Genitourinary: negative: Dysuria, Frequency, Incontinence, Hematuria, Retention , Other - Medications/Allergies Allergies/Adverse Reactions: Allergies Allergy/AdvReac Type Severity Reaction Status Date / Time No Known Allergies Allergy Verified 10/11/17 10:06 Medications: Current Medications Acetaminophen (Tylenol) 650 mg PO Q4H PRN PRN Reason: Headache/Fever/Mild Pain (1-3) Acetaminophen/Codeine Phosphate (Tylenol #3) 1 tab PO Q8H PRN PRN Reason: Pain Last Admin: 05/23/18 17:15 Dose: 1 tab Albuterol Sulfate (Proventil Hfa) 2 puff INH Q4H PRN PRN Reason: SOB or Anxiety Albuterol/Ipratropium (Duoneb) 3 ml NEB [id number] [facility] Last Admin: 05/24/18 07:22 Dose: 3 ml Alprazolam (Xanax) 0.5 mg PO TID PRN PRN Reason: Pain Last Admin: 05/24/18 08:31 Dose: 0.5 mg Amlodipine Besylate (Norvasc) 2.5 mg PO DAILY [facility] Last Admin: 05/24/18 08:27 Dose: 2.5 mg Artificial Tears (Tears Naturale) 2 drop EA EYE PRN PRN PRN Reason: Dry Eyes Atorvastatin Calcium (Lipitor) 20 mg PO DAILY [facility] Last Admin: 05/24/18 08:27 Dose: 20 mg Bisacodyl (Dulcolax) 10 mg PO DAILYPRN PRN PRN Reason: Constipation Calcium Carbonate (Tums) 1,000 mg PO Q4H PRN PRN Reason: Heartburn or Indigestion Cyclobenzaprine HCl (Flexeril) 10 mg PO TID PRN PRN Reason: Muscle Spasm Duloxetine HCl (Cymbalta) 30 mg PO BID [facility] Last Admin: 05/24/18 08:27 Dose: 30 mg Enoxaparin Sodium (Lovenox) 40 mg SC 0900 [facility] Last Admin: 05/24/18 08:26 Dose: 40 mg Famotidine (Pepcid) 20 mg PO BID [facility] Last Admin: 05/24/18 08:27 Dose: 20 mg Gabapentin (Neurontin) 800 mg PO QID [facility] Last Admin: 05/24/18 08:27 Dose: 800 mg Guaifenesin (Robitussin Sf) 200 mg PO Q4H PRN PRN Reason: Cough Hydralazine HCl (Apresoline) 10 mg SLOW IVP Q4H PRN PRN Reason: SBP > 180 and HR < 70 Levofloxacin 500 mg/ Device 100 mls @ 100 mls/hr IVPB Q24HR [facility] Stop: 05/27/18 05:45 Last Admin: 05/24/18 05:43 Dose: 100 mls Levothyroxine Sodium (Synthroid) 112 mcg PO 0900 [facility] Last Admin: 05/24/18 08:27 Dose: 112 mcg Levothyroxine Sodium (Synthroid) 25 mcg PO 0900 [facility] Last Admin: 05/24/18 08:27 Dose: 25 mcg Loperamide HCl (Imodium) 2 mg PO PRN PRN PRN Reason: Diarrhea/Loose Stools Loratadine (Claritin) 10 mg PO DAILYPRN PRN PRN Reason: Sinus Symptoms Metoclopramide HCl (Reglan) 10 mg IVP Q6H PRN PRN Reason: Nausea/Vomiting Mineral Oil/White Petrolatum (Eucerin Cream) 0 gm TOP BIDPRN PRN PRN Reason: Dry Skin Mirtazapine (Remeron) 15 mg PO HS [facility] Last Admin: 05/23/18 20:39 Dose: 15 mg Nicotine (Nicoderm Patch) 14 mg TD Q24HR [facility] Last Admin: 05/24/18 05:43 Dose: 14 mg Prednisone (Prednisone) 20 mg PO QAM-[facility] Stop: 05/25/18 09:00 Last Admin: 05/24/18 08:27 Dose: 20 mg Senna/Docusate Sodium (Senokot S) 2 tab PO BIDPRN PRN PRN Reason: Constipation Sodium Chloride ([place] Nasal [place] 0.65%) 0 ml EA NARE QIDPRN PRN PRN Reason: Nasal Congestion Sodium Chloride (Flush - Normal Saline) 10 ml IVF Q12HR [facility] Last Admin: 05/24/18 08:27 Dose: 10 ml Sodium Chloride (Flush - Normal Saline) 10 ml IVF PRN PRN PRN Reason: Saline Flush Thiamine HCl (Thiamine) 100 mg PO DAILY [facility] Last Admin: 05/24/18 08:27 Dose: 100 mg Throat Lozenges (Cepastat Lozenges) 1 penelope PO Q2H PRN PRN Reason: Sore Throat Last Admin: 05/24/18 08:27 Dose: 1 penelope Zolpidem Tartrate (Ambien) 5 mg PO HSPRN PRN PRN Reason: Insomnia
[2018-05-24 12:20] VITALS: BP 143/87; TEMP 98.4
== END 2018-05-24 12:21 | disposition home or self-care (01) | DRG 189 ==
LOC: ERS 17:43 → T4-A 19:50
PROVIDERS: ADMIT Emergency Medicine; ATTEND Emergency Medicine
DX: J96.01 Acute respiratory failure with hypoxia (principal); J44.1 Chronic obstructive pulmonary disease with (acute) exacerbation; N39.0 Urinary tract infection, site not specified; I10 Essential (primary) hypertension; J96.02 Acute respiratory failure with hypercapnia; F17.210 Nicotine dependence, cigarettes, uncomplicated; E03.9 Hypothyroidism, unspecified; F41.9 Anxiety disorder, unspecified; F32.9 Major depressive disorder, single episode, unspecified; E87.6 Hypokalemia; E78.5 Hyperlipidemia, unspecified; D75.89 Other specified diseases of blood and blood-forming organs; F10.10 Alcohol abuse, uncomplicated; Z85.118 Personal history of other malignant neoplasm of bronchus and lung; Z79.899 Other long term (current) drug therapy; Z90.2 Acquired absence of lung [part of]
CPT/HCPCS: 36415; 70450; 71045; 80048; 80053; 80307; 81003; 81015; 82140; 82805; 83605; 83880; 84145; 84443; 85025; 87040; 87086; 93005; 94640; 96365; 96375; J0696; J1100; J1650; J1956; J7512; J7620

== ENCOUNTER 2018-06-08 11:03 | Inpatient (IN) | payer BC ==
[2018-06-08 11:37] LABS: #Basophils 0.1 thou/uL (0.0-0.2); #Eosinphils 0.2 thou/uL (0.0-0.7); #Lymphocytes 2.6 thou/uL (1.20-3.40); #Monocytes 0.9 thou/uL (0.11-0.59); #Neutrophils 8.4 thou/uL (1.40-6.50); %Basophils 0.5 % (0.0-1.0); %Eosinophils 1.4 % (0.0-10.0); %Lymphocytes 21.6 % (21.0-51.0); %Monocytes 7.6 % (0.0-10.0); Hemoglobin 14.5 g/dL (12.0-16.0); Mean Corpuscular HGB CONC 31.9 g/dL (32.0-36.0); Mean Corpuscular Hemoglobin 33.5 pg (27.0-31.0); Mean Platelet Volume 7.5 fL (7.4-10.4); Platelet Count 217 thou/uL (130-400); RBC Distribution Width 12.5 % (11.5-14.5); Red Blood Cell (RBC) Count 4.32 mill/uL (4.20-5.40); White Blood Cell (WBC) Count 12.1 thou/uL (4.8-10.8)
--- NOTE | 2018-06-08 11:52 | RAD ---
XR Chest 1 View Portable HISTORY:Dyspnea. Not feeling well. COMPARISON: 05/22/2018 study. FINDINGS: Heart size appears borderline. Surgical clips are seen in the right hilar region. There is slightly increased left parahilar density, some of this may be related to positioning. I can not definitely exclude possibly some minimal left perihilar infiltrate. A PA and lateral chest film may be helpful in assessment. IMPRESSION: Slightly increased left parahilar lung markings as discussed above.
[2018-06-08] MEDS ORDERED: Naloxone HCl 2 mg/2 ml Syringe ONE ×4 (11:57→17:27)
[2018-06-08] MEDS ORDERED: Ondansetron PF 4 MG/2 ML Vial ONE (11:57)
[2018-06-08 12:07] LABS: ALT (SGPT) 19 U/L (8-55); AST (SGOT) 40 U/L (5-34); Albumin 4.2 g/dL (3.4-4.8); Alkaline Phosphatase 62 U/L (40-150); Anion Gap 12 mmol/L (10-20); BUN (Urea Nitrogen) 29 mg/dL (9.8-20.1); Bilirubin, Total 0.5 mg/dL (0.2-1.2); Calc. Creatinine Clearance 0 mL/min (70-130); Calcium 10.3 mg/dL (7.8-10.44); Carbon Dioxide 35 mmol/L (23-31); Chloride 94 mmol/L (98-107); Estimated GFR-MDRD 27; Globulin 3.2 g/dL (2.4-3.5); Glucose 114 mg/dL (80-115); Potassium 4.1 mmol/L (3.5-5.1); Protein, Total 7.4 g/dL (6.0-8.3); Sodium 137 mmol/L (136-145)
[2018-06-08 12:22] LABS: Analyzer IN Cardio ER; Base Excess (BEa) 2.7 mEq/L (-2.0 to +3.0); Calcium, Ionized 1.16 mmol/L (1.12-1.30); Carboxyhemoglobin (COHb) 7.9 gm% (0.0-3.0); Hemoglobin (Hb) 13.9 g/dL (12.0-16.0); Potassium - ABG Lab 3.67 mmol/L (3.70-5.30)
[2018-06-08 12:36] LABS: CO2 Tension 64.8 mmHg (35.0-45.0); Puncture Site RRA
--- NOTE | 2018-06-08 13:20 | CT ---
Exam: Chest CT scan without IV contrast: HISTORY: Hypotension, dyspnea COMPARISON: Chest x-ray 06/08/2018 FINDINGS: Postop changes in the right upper lobe with some associated volume loss as well as some postsurgical changes in the mediastinum. There are several nodules noted bilaterally including a 0.4 cm nodule in the superior portion of the right lower lobe, a 0.6 cm diameter pleural-based nodule in the posterior right lower lobe, and a 0.3 cm diameter nodule in the left upper lobe. Pleural-based parenchymal changes in the posterior asp ect of the left lower lobe, possibly positional versus subsegmental atelectasis or very mild pneumonitis. 3 vessel coronary artery calcific disease. Borderline cardiomegaly. Visualized upper abd omen is unremarkable. IMPRESSION: Multiple small bilateral pulmonary nodules up to 0.6 cm in the posterior right lower lobe. Borderline cardiomegaly. Minimal pleural-based parenchymal changes in the posterior left lower lobe possibly positional versus minimal pneumonitis. Consider follow-up CT chest in 6 months to 12 months depending upon risk factors.
[2018-06-08] MEDS ORDERED: Sodium Chloride 0.65% Nasal 44 ML BOT EA NARE PRN (14:59)
[2018-06-08] MEDS ORDERED: cloNIDine 0.1 MG TAB PO PRN (14:59)
[2018-06-08] MEDS ORDERED: Bisacodyl 5 MG TAB PO PRN (14:59)
[2018-06-08] MEDS ORDERED: Benzonatate 100 MG CAP PO PRN (14:59)
[2018-06-08] MEDS ORDERED: Nitroglycerin 0.4 MG TAB (25 Tab Bottle) SL PRN (14:59)
[2018-06-08] MEDS ORDERED: Ondansetron PF 4 MG/2 ML Vial IVP PRN (14:59)
[2018-06-08] MEDS ORDERED: Acetaminophen 500 MG TAB PO PRN (14:59)
[2018-06-08] MEDS ORDERED: Diabetic Tussin 200 MG/10 ML UDCUP PO PRN (14:59)
[2018-06-08] MEDS ORDERED: hydrALAZINE 20 MG/ML VIAL SLOW IVP PRN (14:59)
[2018-06-08] MEDS ORDERED: Senokot S 8.6-50 MG TAB PO PRN (14:59)
[2018-06-08] MEDS ORDERED: Naloxone HCl 1 MG in Sodium Chloride 0.9% 500 ML IV PRN (15:02)
[2018-06-08] MEDS ORDERED: Piperacillin/Tazobactam 3.375 GM VIAL ONE (15:11)
[2018-06-08 15:59] LABS: Lactic Acid 0.8 mmol/L (0.5-2.2)
--- NOTE | 2018-06-08 16:17 | HP ---
PRIMARY CARE PHYSICIAN: Dr. Nahid Mitchell. CHIEF COMPLAINT: Somnolence, shortness of breath, and wheezing. HISTORY OF PRESENTING ILLNESS: Ms. Brown is a 63-year-old female with past medical history of tobacco abuse, ongoing, as well as history of COPD and history of lung cancer in 2016, who presented to the ER with above-mentioned complaint. History is mainly obtained by her [id number] present at bedside. The patient is currently very somnolent and has a BiPAP mask on, is not able to provide any history. Electronic medical records have been reviewed in detail. The patient was recently admitted to our facility from 05/22/2018 to 05/24/2018. During that time, she was admitted with complaints of shortness of breath and was treated for acute COPD exacerbation and a urinary tract infection. She was discharged on 05/24/2018 on multiple medications including tapering dose of prednisone and levofloxacin. Upon presentation to the ER by her : He reported that she has been getting more and more groggy for the last 2 or 3 days. She has been also having trouble with her breathing, appears generalized weak and somnolent. She does not have any oxygen at home. Not much of the other history is available as the is not in the room at this time. Her hiwvhjbn-mu-chk who is there, reports that she noticed that her tyfgql-er-fwt has been appearing more confused when she visited her yesterday. She was asking about iuaenpkl-wi-ohk's mother who has been for a while. Nevertheless, upon presentation to the ER, she was found to be hypoxic, oxygen saturation 90% on room air, and hypotensive with a blood pressure of 79/47. An ABG was checked and she was found to have CO2 narcosis with a pH of 7.3, but pCO2 of 64. Her oxygen level was adequate at 78 on the ABG. She was treated with BiPAP and there was concern for narcotic overuse, so she was treated with Narcan with improvement in her blood pressure. Later, her blood pressure trended down again and she received one more dose of Narcan with improvement in her blood pressure. She is now being admitted to [facility] with a presumptive diagnosis of CO2 narcosis from narcotic overuse. At this time, it is unclear as to what medications she uses at home for pain. She was, however, discharged on multiple medications that can cause that, including Xanax, Flexeril, Cymbalta, gabapentin, Mucinex, among others. b Past medical history, past surgical history, social history, and family history remain unchanged. Please see admission history and physical dictated by Dr. Santo dated 05/23/2018 for details. ALLERGIES: NO KNOWN MEDICATION ALLERGIES. HOME MEDICATIONS: The family does not really know what medications she takes, but according to the ER records, she is on following; 1. Gabapentin 800 four times a day. 2. Amlodipine 2.5 mg a day. 3. Atorvastatin 20 mg at bedtime. 4. Alprazolam p.r.n. 5. Mirtazapine 15 mg at bedtime. 6. Tylenol with Codeine every 8 hours p.r.n. 7. Chlorthalidone 25 mg daily. 8. Quinapril 40 mg in the morning. 9. Cyclobenzaprine 10 t.i.d. p.r.n. 10. Indomethacin 25 mg b.i.d. 11. Levothyroxine 137 mcg daily. 12. Duloxetine 30 mg b.i.d. 13. ProAir p.r.n. REVIEW OF SYSTEMS: Review of system is unobtainable due to excessive somnolence. The patient is very difficult to wake up as well as she has a BiPAP mask on. LABORATORY EXAMINATION: CBC shows WBCs 12.1, no left shift. ABG shows pH of 7.3, pCO2 of 64, PO2 of 78. Serum chemistries show chloride 94, bicarb 35, BUN 29, creatinine 1.87. Lactic acid 2.3. BNP 101. Cardiac enzymes normal. Chest x- ray by my review shows no evidence of pleural effusion, edema, or infiltrate. CT scan of the chest done in the emergency room once again does not show any specific evidence of infection by my review. She has borderline cardiomegaly and minimal pleural based parenchymal changes in the posterior left lower lobe, likely related to her history of lung cancer. A 12-lead EKG by my review shows normal sinus rhythm at 73 beats per minute without any acute ST or T-wave changes. PHYSICAL EXAMINATION: VITAL SIGNS: Upon presentation; blood pressure is 79/47, pulse of 75, respirations 12, saturating 90% on room air, currently 95% on BiPAP with a blood pressure of 104/74. GENERAL: She is somnolent and has a BiPAP mask on. She is difficult to wake up. She responds to verbal and tactile and painful stimuli easily. HEENT: Difficult to complete because of the BiPAP mask. Mucous membrane appears somewhat dry. Head is normocephalic and atraumatic. Pupils are equal and reactive to light and accommodation. NECK: Supple without any lymphadenopathy, JVD, or bruit. CHEST: Evaluation showed no evidence of wheezing or crackles. Air entry is equal bilaterally. Rate rhythm is regular without any murmurs, rubs, or gallops. ABDOMEN: Obese, soft, nontender, nondistended. EXTREMITIES: Show trace pitting edema bilaterally. NEUROLOGIC: She is moving all four extremities, but is very difficult to wake up to complete the exam. SKIN: Free of any rashes or bruises. PSYCHIATRIC: Normal affect, but very somnolent currently. IMPRESSION AND PLAN: 1. Acute hypercarbic respiratory failure. Most likely secondary to narcotic and sedative overuse. The patient has responded well to Narcan and we will order that on as needed basis. She will be admitted to [facility] on BiPAP and we will consult Pulmonary Medicine. It does not look like that she has developed pneumonia or is in congestive heart failure or flash pulmonary edema. We will add IV steroids and nebulizers based on her history of chronic obstructive pulmonary disease, though she does not seem to be in any overt exacerbation for now. Continue symptomatic and supportive care and avoid all narcotics and sedatives for now. 2. Acute metabolic encephalopathy. This is due to CO2 narcosis. BiPAP has been ordered. Once again, we will avoid sedative, narcotics, and provide symptomatic and supportive care. 3. Hypotension. This is secondary to excessive pain medication use. I do not believe at this time that the patient is septic. We will monitor her blood pressure closely and hold her blood pressure medications for now. Gentle IV fluids will be restarted. She has received 2 L normal saline in the ER so far. 4. History of chronic obstructive pulmonary disease. Suspect mild exacerbation for now. 5. History of hypertension. Currently, the blood pressure is on the lower side. We will hold the blood pressure medications. 6. Hypothyroidism. Resume home medications once confirmed. 7. Alcohol abuse. It is listed in her most recent H and P and discharge summary. We will check a plasma alcohol level as well. Order ASE protocol, though I cannot confirm how much she drinks. 8. Deep venous thrombosis and gastrointestinal prophylaxis. 9. Code status: Full code implied at this time. Discussed with her daughter-in -law present at bedside. DISPOSITION: Ms. Brown is currently being admitted to [facility] for CO2 narcosis, and further management will depend upon her clinical course. We will request Pulmonary consultation as well and continue the BiPAP for now. Estimated length of stay at this time is at least 2 to 3 midnights. Job ID: [id number] MTDD
[2018-06-08] MEDS ORDERED: Naloxone HCl 0.4 mg/ml Vial IVP PRN (17:00)
[2018-06-08] MEDS ORDERED: methylPREDNISolone Sod Succ 40 MG VIAL ONE (17:27)
[2018-06-08] MEDS: Sodium Chloride 0.9% 1,000 ML IV SCH (17:30)
[2018-06-08] MEDS: methylPREDNISolone Sod Succ 40 MG VIAL IVP SCH ×2 (17:46→23:28)
[2018-06-08 21:52] VITALS: BMI 29.0
[2018-06-09] MEDS: Sodium Chloride 0.9% 1,000 ML IV SCH (05:05)
[2018-06-09] MEDS: methylPREDNISolone Sod Succ 40 MG VIAL IVP SCH ×3 (10:04→23:21)
[2018-06-09] MEDS: Enoxaparin Sodium 40 MG/0.4 ML SYRINGE SC SCH (10:04)
--- NOTE | 2018-06-09 10:32 | CON ---
DATE OF CONSULTATION: HISTORY OF PRESENT ILLNESS: Samantha Brown is a 63-year-old female, 87 kg, presented to the hospital yesterday with worsening shortness of breath, coughing, and wheezing. Smoking a pack a day. She says unable to quit smoking. She has seen Dr. Godfrey in office and has not seen him for a period of time and most days she says she could walk a block without getting markedly short of breath. This morning, she is very tearful, because she was told to quit smoking. She says she has tried multiple times to quit, but were unsuccessful. PAST MEDICAL HISTORY: COPD, arthritis, anxiety. PREVIOUS SURGERIES: Lobectomy for lung nodules benign; multiple spinal surgeries, cervical, thoracic, lumbar; elbow surgery; tonsillectomy; tubal ligation. ALCOHOL: 5 drinks a day. TOBACCO: A pack a day. HOME MEDICATIONS: Include; 1. Guaifenesin. 2. Amlodipine 2.5. 3. Thiamine 100. 4. Quinapril 40. 5. Dulera. 6. Remeron. 7. Indomethacin. 8. Gabapentin 800 four times a day. 9. Cymbalta one four times a day. 10. Xanax 0.5. 11. Albuterol. 12. Tylenol. Since admission, she is now started on Solu-Medrol, neb treatments p.r.n. She says she is feeling somewhat better. 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 ALLERGIES: NONE. REVIEW OF SYSTEMS: Ten-point negative. PHYSICAL EXAMINATION: VITAL SIGNS: O2 saturation is 96% on 4 L, temperature 97, blood pressure 125/60, respiratory rate 18, pulse 80. CHEST: Diffuse wheezing. CARDIAC: Normal S1, S2. No gallops. ABDOMEN: No masses. LABORATORY DATA: PO2 was 78, pCO2 64, pH 7.30, respiratory acidosis. Lytes, creatinine 1.87. BNP was normal. CT chest was done; multiple small bilateral pulmonary nodules, cardiomegaly. Chest x-ray did not show any obvious masses or any significant nodules that were seen on the CT. Left hilum is somewhat full. There is haziness in the left chest. This could very well be from the previous postop changes. ASSESSMENT: 1. Acute on chronic respiratory failure. 2. Ongoing tobacco abuse. 3. Apparently alcohol abuse. 4. Status post upper lobectomy. 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 The patient told me it was benign, but clearly it is cancerous. 5. Anxiety. PLAN: Empiric antibiotics initiated. We will notify Dr. Godfrey. Outpatient workup for multiple pulmonary lung nodules. Once again, she was advised to refrain from smoking. Consultation note, 70 minutes, 50% direct patient care. Job ID: [id number]
[2018-06-09] MEDS ORDERED: Lidocaine 5% Patch TD SCH (13:30)
[2018-06-09 13:46] LABS: Anion Gap 15 mmol/L (10-20); BUN (Urea Nitrogen) 18 mg/dL (9.8-20.1); Calc. Creatinine Clearance 97 mL/min (70-130); Calcium 9.6 mg/dL (7.8-10.44); Carbon Dioxide 29 mmol/L (23-31); Chloride 98 mmol/L (98-107); Estimated GFR-MDRD 71; Glucose 222 mg/dL (80-115); Potassium 4.5 mmol/L (3.5-5.1); Sodium 137 mmol/L (136-145)
--- NOTE | 2018-06-09 14:49 | PDOC.PN ---
- Subjective Encounter Start Date: 06/09/18 Encounter Start Time: 14:48 Subjective: Admitted with acute onset of severe weakness and dizziness -: patient wasfoundto be hypotensive, somnolent and hypercarbic on presentatio -: has transient improvement with narcan. Admitted taking tylenol 4 and xanax - Objective Vital Signs & Weight: Vital Signs (12 hours) Temp Pulse BP BP Pulse Ox 06/09/18 10:44 98.8 F 06/09/18 09:25 75 112/67 121/69 06/09/18 08:30 91 L 06/09/18 07:35 96 06/09/18 07:18 97.4 F L 06/09/18 04:00 97.8 F Weight Weight 191 lb 1.6 oz Most Recent Monitor Data Heart Rate from ECG 89 NIBP 153/67 NIBP BP-Mean 95 Respiration from ECG 20 SpO2 90 I&O: 06/08/18 06/09/18 06/10/18 06:59 06:59 06:59 Intake Total 700 Output Total 475 Balance 225 Result Diagrams: 06/08/18 11:23 06/09/18 13:00 Phys Exam - Physical Examination Constitutional: NAD afebrile HEENT: PERRLA, moist MMs Neck: no JVD, supple Respiratory: no wheezing, no rales, no rhonchi fair air entry bilaterally with some transmitted sound Cardiovascular: RRR, no significant murmur Gastrointestinal: soft, non-tender, no distention, positive bowel sounds Musculoskeletal: no edema, pulses present Neurological: non-focal, moves all 4 limbs Psychiatric: A&O x 3 Dx/Plan (1) Acute respiratory failure with hypercapnia Code(s): J96.02 - ACUTE RESPIRATORY FAILURE WITH HYPERCAPNIA Status: Acute Comment: Resolved with narcan and BIPAP. 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 Patient took tylenol 4 and alpraxolam. (3) Chronic back pain Code(s): M54.9 - DORSALGIA, UNSPECIFIED; G89.29 - OTHER CHRONIC PAIN Status: Acute (4) Chronic, continuous use of opioids Code(s): F11.90 - OPIOID USE, UNSPECIFIED, UNCOMPLICATED Status: Acute (5) COPD (chronic obstructive pulmonary disease) Status: Acute Comment: No features of acute exacerbation. (6) VANESSA (acute kidney injury) Code(s): N17.9 - ACUTE KIDNEY FAILURE, UNSPECIFIED Status: Acute Comment: due to hemodynamic factors related to hypotension. (7) Anxiety and depression Code(s): F41.9 - ANXIETY DISORDER, UNSPECIFIED; F32.9 - MAJOR DEPRESSIVE DISORDER, SINGLE EPISODE, UNSPECIFIED Status: Chronic (8) Hypertension Code(s): I10 - ESSENTIAL (PRIMARY) HYPERTENSION Status: Chronic (9) Hypothyroidism Code(s): E03.9 - HYPOTHYROIDISM, UNSPECIFIED Status: Chronic (10) Tobacco abuse Code(s): Z72.0 - TOBACCO USE Status: Chronic (11) Hypotension Status: Acute Comment: Resolved with IVF. - Plan DC IVF. Off BIPAP. -: Start lidocaine patch to back. -: Wean off oxgen -: Education and counselling about opiod and benzodiazepine use provided. -: avoid psychotropic medications for now. Transfer to medical floor * .
[2018-06-09] MEDS ORDERED: Lidocaine Patch Removal 1 EACH TOP SCH (21:00)
[2018-06-09] MEDS: Doxycycline 100 MG CAP PO SCH (23:21)
[2018-06-10] MEDS: methylPREDNISolone Sod Succ 40 MG VIAL IVP SCH (06:36)
[2018-06-10 06:38] LABS: #Lymphocytes 1.1 thou/uL (1.20-3.40); #Monocytes 0.3 thou/uL (0.11-0.59); %Basophils 0.1 % (0.0-1.0); %Eosinophils 0.3 % (0.0-10.0); %Monocytes 2.4 % (0.0-10.0); %Neutrophils 88.2 % (42.0-75.0); Hemoglobin 14.2 g/dL (12.0-16.0); Mean Corpuscular HGB CONC 31.9 g/dL (32.0-36.0); Mean Corpuscular Hemoglobin 34.3 pg (27.0-31.0); Mean Platelet Volume 8.3 fL (7.4-10.4); Platelet Count 185 thou/uL (130-400); RBC Distribution Width 12.7 % (11.5-14.5); Red Blood Cell (RBC) Count 4.14 mill/uL (4.20-5.40); White Blood Cell (WBC) Count 12.4 thou/uL (4.8-10.8)
[2018-06-10 06:57] LABS: Anion Gap 15 mmol/L (10-20); BUN (Urea Nitrogen) 21 mg/dL (9.8-20.1); Calc. Creatinine Clearance 108 mL/min (70-130); Calcium 9.8 mg/dL (7.8-10.44); Carbon Dioxide 26 mmol/L (23-31); Chloride 102 mmol/L (98-107); Estimated GFR-MDRD 80; Glucose 160 mg/dL (80-115); Potassium 4.1 mmol/L (3.5-5.1); Sodium 139 mmol/L (136-145)
[2018-06-10] MEDS ORDERED: Lidocaine 5% Patch TD SCH (09:00)
[2018-06-10] MEDS: Doxycycline 100 MG CAP PO SCH (09:31)
[2018-06-10] MEDS: Enoxaparin Sodium 40 MG/0.4 ML SYRINGE SC SCH (09:31)
[2018-06-10] MEDS ORDERED: Cyclobenzaprine 10 MG TAB PO PRN (10:14)
[2018-06-10] MEDS ORDERED: ALPRAZolam 0.5 MG TAB PO PRN (10:14)
[2018-06-10] MEDS ORDERED: PROVENTIL INHALER 6.7 G (200 INHALATIONS) INH PRN (10:14)
--- NOTE | 2018-06-10 11:05 | PDOC.PN ---
- Subjective Encounter Start Date: 06/10/18 Encounter Start Time: 09:00 -: old records requested/rev Patient seen and examined. No new complaints. No overnight events - Objective MAR Reviewed: Yes Vital Signs & Weight: Vital Signs (12 hours) Temp Pulse Resp BP BP Pulse Ox 06/10/18 09:32 92 L 06/10/18 08:00 92 L 06/10/18 07:40 97.5 F L 83 19 150/77 H 90 L 06/10/18 05:16 98.3 F 81 16 146/74 H 93 L 06/10/18 00:15 98 F 72 16 155/79 H 92 L Weight Weight 191 lb 1.6 oz Most Recent Monitor Data Heart Rate from ECG 77 NIBP 148/85 NIBP BP-Mean 106 Respiration from ECG 16 SpO2 100 I&O: 06/09/18 06/10/18 06/11/18 06:59 06:59 06:59 Intake Total 700 2000 Output Total 475 900 Balance 225 1100 Result Diagrams: 06/10/18 06:15 06/10/18 06:15 Radiology Reviewed by me: Yes Phys Exam - Physical Examination Constitutional: NAD HEENT: PERRLA, moist MMs, sclera anicteric Neck: no JVD, supple Respiratory: no wheezing, no rales, no rhonchi Cardiovascular: RRR, no significant murmur, no rub Gastrointestinal: soft, non-tender, no distention, positive bowel sounds Musculoskeletal: no edema, pulses present Neurological: non-focal, normal sensation, moves all 4 limbs Psychiatric: normal affect, A&O x 3 Skin: no rash, normal turgor Dx/Plan (1) VANESSA (acute kidney injury) Code(s): N17.9 - ACUTE KIDNEY FAILURE, UNSPECIFIED Status: Resolved Comment : (2) Acute respiratory acidosis Code(s): E87.2 - ACIDOSIS Status: Resolved Comment: 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 Patient took tylenol 4 and alpraxolam. (3) Acute respiratory failure with hypoxia and hypercarbia Code(s): J96.01 - ACUTE RESPIRATORY FAILURE WITH HYPOXIA; J96.02 - ACUTE RESPIRATORY FAILURE WITH HYPERCAPNIA Status: Resolved (4) Hypotension Status: Resolved Comment: Resolved with IVF. (5) Anxiety and depression Code(s): F41.9 - ANXIETY DISORDER, UNSPECIFIED; F32.9 - MAJOR DEPRESSIVE DISORDER, SINGLE EPISODE, UNSPECIFIED Status: Chronic (6) COPD (chronic obstructive pulmonary disease) Status: Chronic Comment: (7) Chronic back pain Code(s): M54.9 - DORSALGIA, UNSPECIFIED; G89.29 - OTHER CHRONIC PAIN Status: Chronic (8) Chronic, continuous use of opioids Code(s): F11.90 - OPIOID USE, UNSPECIFIED, UNCOMPLICATED Status: Chronic (9) Dyslipidemia Code(s): E78.5 - HYPERLIPIDEMIA, UNSPECIFIED Status: Chronic (10) Hypertension Code(s): I10 - ESSENTIAL (PRIMARY) HYPERTENSION Status: Chronic (11) Hypothyroidism Code(s): E03.9 - HYPOTHYROIDISM, UNSPECIFIED Status: Chronic (12) Macrocytosis Code(s): D75.89 - OTHER SPECIFIED DISEASES OF BLOOD AND BLOOD-FORMING ORGANS Status: Chronic (13) Tobacco abuse Code(s): Z72.0 - TOBACCO USE Status: Chronic - Plan cont current plan of care * . Review of Systems - Review of Systems ENT: negative: Ear Pain, Ear Discharge, Nose Pain, Nose Discharge, Nose Congestion, Mouth Pain, Mouth Swelling, Throat Pain, Throat Swelling, Other Respiratory: negative: Cough, Dry, Shortness of Breath, Hemoptysis, SOB with Excertion, Pleuritic Pain, Sputum, Wheezing Cardiovascular: negative: chest pain, palpitations, orthopnea, paroxysmal nocturnal dyspnea, edema, light headedness, other Gastrointestinal: negative: Nausea, Vomiting, Abdominal Pain, Diarrhea, Constipation, Melena, Hematochezia, Other Genitourinary: negative: Dysuria, Frequency, Incontinence, Hematuria, Retention , Other Musculoskeletal: negative: Neck Pain, Shoulder Pain, Arm Pain, Back Pain, Hand Pain, Leg Pain, Foot Pain, Other Skin: negative: Rash, Lesions, Ad, Bruising, Other - Medications/Allergies Allergies/Adverse Reactions: Allergies Allergy/AdvReac Type Severity Reaction Status Date / Time No Known Allergies Allergy Verified 10/11/17 10:06 Medications: Current Medications Acetaminophen (Tylenol) 1,000 mg PO Q6H PRN PRN Reason: Mild Pain (1-3) Last Admin: 06/09/18 16:33 Dose: 1,000 mg Albuterol Sulfate (Proventil Hfa) 2 puff INH Q4HR PRN PRN Reason: SOB or Anxiety Albuterol/Ipratropium (Duoneb) 3 ml NEB B2VD-DL PRN PRN Reason: SOB &/or Wheezing Alprazolam (Xanax) 0.5 mg PO TID PRN PRN Reason: Pain Last Admin: 06/10/18 10:41 Dose: 0.5 mg Amlodipine Besylate (Norvasc) 2.5 mg PO DAILY [facility] Atorvastatin Calcium (Lipitor) 20 mg PO DAILY [facility] Benzonatate (Tessalon) 100 mg PO Q6H PRN PRN Reason: Cough Bisacodyl (Dulcolax) 10 mg PO DAILYPRN PRN PRN Reason: Constipation Chlorthalidone (Hygroton) 25 mg PO DAILY [facility] Cyclobenzaprine HCl (Flexeril) 10 mg PO TID PRN PRN Reason: Muscle Spasm Doxycycline Hyclate (Vibramycin) 100 mg PO BID [facility] Stop: 06/16/18 21:01 Last Admin: 06/10/18 09:31 Dose: 100 mg Duloxetine HCl (Cymbalta) 30 mg PO BID [facility] Enoxaparin Sodium (Lovenox) 40 mg SC 0900 [facility] Last Admin: 06/10/18 09:31 Dose: Not Given Gabapentin (Neurontin) 800 mg PO QID [facility] Guaifenesin (Robitussin Sf) 200 mg PO Q4H PRN PRN Reason: Cough Guaifenesin (Mucinex) 600 mg PO BID [facility] Hydralazine HCl (Apresoline) 10 mg SLOW IVP Q4H PRN PRN Reason: SBP > 180 and HR < 70 Levothyroxine Sodium (Synthroid) 112 mcg PO 0600 [facility] Levothyroxine Sodium (Synthroid) 25 mcg PO 0600 [facility] Lidocaine (Lidoderm 5% Patch) 1 patch TD DAILY [facility] Last Admin: 06/10/18 09:31 Dose: Not Given Methylprednisolone Sodium Succinate (Solu-Medrol) 40 mg IVP Q8H [facility] Last Admin: 06/10/18 06:36 Dose: 40 mg Mirtazapine (Remeron) 15 mg PO HS [facility] Miscellaneous Medication (Lidocaine Patch Removal) 0 each TOP 2100 [facility] Last Admin: 06/10/18 04:00 Dose: 1 each Mometasone Furoate/Formoterol Fumar (Dulera 200 Mcg/5 Mcg Inhaler) 2 puff INH BID [facility] Nitroglycerin (Nitrostat) 0.4 mg SL Q5MIN PRN PRN Reason: Chest Pain Ondansetron HCl (Zofran) 4 mg IVP Q6H PRN PRN Reason: Nausea/Vomiting Quinapril HCl (Accupril) 40 mg PO DAILY [facility] Senna/Docusate Sodium (Senokot S) 2 tab PO BID PRN PRN Reason: Constipation Sodium Chloride ([place] Nasal [place] 0.65%) 0 ml EA NARE QIDPRN PRN PRN Reason: Nasal Congestion Thiamine HCl (Thiamine) 100 mg PO DAILY [facility]
--- NOTE | 2018-06-10 11:52 | PRG ---
DATE OF SERVICE: 06/10/2018 SUBJECTIVE: This morning, she is better, less short of breath. She is eager to go home. OBJECTIVE: VITAL SIGNS: Sats are 92% on 2 L, temperature 97, blood pressure 150/70, respirations 18. CHEST: Decreased breath sounds. No wheezing. CARDIAC: Normal S1 and S2. No gallops. ABDOMEN: No masses. LABORATORY DATA: Lytes are normal. ASSESSMENT: Chronic obstructive pulmonary disease exacerbation, bronchitis, abnormal CT, multiple lung nodules. PLAN: She is to be discharged home on antibiotics, tapering dose of prednisone. Follow up with her trust and estates attorney. She refrains from smoking. Job ID: [id number]
[2018-06-10 12:01] VITALS: BP 146/74; TEMP 99.1
--- NOTE | 2018-06-10 12:22 | DIS ---
DATE OF ADMISSION: 06/08/2018 DATE OF DISCHARGE: 06/10/2018 PRIMARY CARE PHYSICIAN: Nahid Mitchell, DISCHARGE DISPOSITION: Home. PRIMARY DISCHARGE DIAGNOSES: 1. Acute respiratory failure with hypoxia and hypercapnia due to sedative medication, resolved. 2. Acute respiratory acidosis, resolved. 3. Acute kidney injury, improved. 4. Hypotension, resolved. SECONDARY DISCHARGE DIAGNOSES: 1. Chronic obstructive pulmonary disease. 2. Anxiety and depression. 3. Chronic low back pain. 4. Opioid dependence. 5. Dyslipidemia. 6. Hypotension. 7. Hypothyroidism. 8. Tobacco abuse disorder. PRIMARY PROCEDURE/OPERATION: None. RADIOLOGICAL INVESTIGATION: Chest x-ray, CT chest. SIGNIFICANT LABORATORY DATA: Hemoglobin 14.2, pCO2 is 64.8, creatinine 0.74. DISCHARGE MEDICATIONS: New medications: 1. Prednisone 40 mg p.o. daily for 7 days. 2. doxycycline 100 mg po bid for 7 days Continue following medications: 1. ProAir HFA two puffs q.4 hourly p.r.n. 2. Tylenol No. 3 one tablet q.8 hourly p.r.n. 3. Xanax 0.5 mg t.i.d. p.r.n. 4. Amlodipine 2.5 mg p.o. daily. 5. Lipitor 20 mg daily. 6. Chlorthalidone 25 mg daily. 7. Flexeril 10 mg t.i.d. p.r.n. 8. Cymbalta 30 mg b.i.d. 9. Gabapentin 800 mg p.o. q.i.d. 10. Indomethacin 25 mg b.i.d. 11. Levothyroxine 137 mcg p.o. daily. 12. Remeron 15 mg p.o. at bedtime. 13. Quinapril 40 mg p.o. daily. 14. Mucinex 600 mg twice daily. 15. Atrovent HFA 2 puffs q.6 hourly. 16. Dulera 2 puffs inhalation b.i.d. 17. Thiamine 100 mg p.o. daily. CONTRAINDICATION: None. CODE STATUS: Full code. 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 Marcos was following while in hospital. TEST RESULT PENDING ON DISCHARGE: None. ALLERGIES: NO KNOWN DRUG ALLERGIES. DISCHARGE PLAN: Posthospital, the patient will follow up with primary care physician. HOSPITAL COURSE: A 63-year-old female, who has above-mentioned medical problem , who was admitted by Dr. Jenna Bridges. Please see her H and P for further details. This patient took extra pills of Xanax and Tylenol No. 3 for her pain and anxiety and subsequently, she was having somnolence. She was found with respiratory acidosis on admission. She had acute respiratory failure with hypoxia and hypercapnia and she also had slight hypotension. She was admitted to medical floor. She was observed and Pulmonary group was consulted. She was hydrated with IV fluid and her renal function improved to normal. This patient is taking bunch of medication for her chronic pain disorder and that is why we have provided necessary patient education about following up with primary care physician and reduce polypharmacy to prevent this type of problem again. We also counseled again this admission about quitting smoking. The patient is on room air. She is ambulatory, tolerating p.o. well. She was able to talk in full sentence without any problem and she is expressing her wish to go home today. Dr. Marcos recommended to discharge her with oral antibiotic therapy with doxycycline and prednisone which was prescribed on discharge. The patient is seen and examined at bedside today. Please see my progress note from today for further detail. Job ID: [id number] MTDD
[2018-06-10] MEDS ORDERED: Gabapentin 400 MG CAP PO SCH (13:00)
[2018-06-10] MEDS ORDERED: Mirtazapine 15 MG TAB PO SCH (21:00)
[2018-06-10] MEDS ORDERED: Mometasone/Formoterol 120 PUFF INHALER INH SCH (21:00)
[2018-06-10] MEDS ORDERED: guaiFENesin ER 600 MG TAB PO SCH (21:00)
[2018-06-10] MEDS ORDERED: DULoxetine 30 MG CAP PO SCH (21:00)
[2018-06-11] MEDS ORDERED: Levothyroxine Sodium 25 MCG TAB PO SCH (06:00)
[2018-06-11] MEDS ORDERED: Levothyroxine Sodium 112 MCG TAB PO SCH (06:00)
[2018-06-11] MEDS ORDERED: Levothyroxine Sodium 125 MCG TAB PO SCH (09:00)
[2018-06-11] MEDS ORDERED: Thiamine 100 MG TAB PO SCH (09:00)
[2018-06-11] MEDS ORDERED: Amlodipine 5 MG TAB PO SCH (09:00)
[2018-06-11] MEDS ORDERED: Chlorthalidone 25 MG TAB PO SCH (09:00)
[2018-06-11] MEDS ORDERED: Atorvastatin Calcium 20 MG TAB PO SCH (09:00)
== END 2018-06-10 12:12 | disposition home or self-care (01) | DRG 917 ==
LOC: ERS 11:03 → ERHOLD 16:40 → IMCU/EMU 21:40 → T4-A 06-09 20:33
PROVIDERS: ADMIT Internal Medicine; ATTEND Internal Medicine
PROC: 5A09357 Assistance with Respiratory Ventilation, Less than 24 Consecutive Hours, Continuous Positive Airway Pressure (ICD-10-PCS; principal; 2018-06-08)
DX: T39.1X1A Poisoning by 4-Aminophenol derivatives, accidental (unintentional), initial encounter (principal); G92 Toxic encephalopathy; J96.01 Acute respiratory failure with hypoxia; J96.02 Acute respiratory failure with hypercapnia; J44.1 Chronic obstructive pulmonary disease with (acute) exacerbation; N17.9 Acute kidney failure, unspecified; E87.2 Acidosis; T40.691A Poisoning by other narcotics, accidental (unintentional), initial encounter; I10 Essential (primary) hypertension; E03.9 Hypothyroidism, unspecified; F10.10 Alcohol abuse, uncomplicated; F17.210 Nicotine dependence, cigarettes, uncomplicated; M19.91 Primary osteoarthritis, unspecified site; F41.9 Anxiety disorder, unspecified; F32.9 Major depressive disorder, single episode, unspecified; I95.2 Hypotension due to drugs; G89.29 Other chronic pain; D75.89 Other specified diseases of blood and blood-forming organs; F11.90 Opioid use, unspecified, uncomplicated; M54.2 Cervicalgia; T42.4X1A Poisoning by benzodiazepines, accidental (unintentional), initial encounter; Z85.118 Personal history of other malignant neoplasm of bronchus and lung; Z79.899 Other long term (current) drug therapy; Z90.89 Acquired absence of other organs; Z98.51 Tubal ligation status; Z71.6 Tobacco abuse counseling
CPT/HCPCS: 36415; 71045; 71250; 80048; 80053; 80307; 82805; 83605; 83880; 84484; 85025; 93005; 94640; 94660; 96365; 96366; 96367; 96375; 96376; J1650; J2310; J2405; J2543; J2920; J3370; J7620

== ENCOUNTER 2018-11-06 11:09 | Outpatient (CLI) | payer OTHER ==
--- NOTE | 2018-11-06 11:25 | RAD ---
EXAM: XR Lumbar Spine 2 Or 3 View PROVIDED CLINICAL HISTORY: Disability exam COMPARISON: None FINDINGS: 5 nonrib-bearing lumbar-type vertebral bodies are present. Lumbar alignment appears normal. Vertebral body heights appear preserved. Pedicle screws and vertical interconnecting rods span L4-S1 without evidence for hardware loosening or migration. Disc degenerative changes are seen. Vascular calcificat ion is noted. IMPRESSION: Postoperative and degenerative changes are seen involving the lumbar spine.
== END 2018-11-06 11:10 | disposition home or self-care (01) ==
LOC: BICRAD 11:09
PROVIDERS: ATTEND Internal Medicine
DX: Z02.71 Encounter for disability determination (principal); M47.816 Spondylosis without myelopathy or radiculopathy, lumbar region; Z98.890 Other specified postprocedural states
CPT/HCPCS: 72100

== ENCOUNTER 2018-12-01 11:20 | Outpatient (CLI) | payer BC ==
--- NOTE | 2018-12-01 12:51 | CT ---
EXAM: CT chest without contrast per low-dose cancer screening protocol HISTORY: History of smoking and nicotine dependence COMPARISON: None TECHNIQUE: Multiple contiguous axial images were obtained in a CT of the chest without contrast per l ow-dose cancer screening protocol. Sagittal and coronal reformats were performed. FINDINGS: Pulmonary nodules: No suspicious pulmonary nodules are seen. No focal infiltrates are seen. Pleural space: No pneumothorax or pleural effusion are seen. Heart: The heart is normal in size. Mediastinum: No hilar or mediastinal lymphadenopathy appreciated on this limited noncontrast examinat ion. Bones: Unremarkable. Visualized subdiaphragmatic structures: Unremarkable. IMPRESSION: Lung RADS category 1-negative.
== END 2018-12-01 11:21 | disposition home or self-care (01) ==
LOC: CT 11:20
PROVIDERS: ATTEND Family Medicine
DX: Z12.2 Encounter for screening for malignant neoplasm of respiratory organs (principal); Z00.00 Encounter for general adult medical examination without abnormal findings; F17.210 Nicotine dependence, cigarettes, uncomplicated
CPT/HCPCS: G0297

== ENCOUNTER 2018-12-18 12:49 | Outpatient (CLI) | payer BC ==
--- NOTE | 2018-12-18 13:44 | MMO ---
Bilateral MAMMO Bilat Screen [facility]. CLINICAL HISTORY: Patient is 63 years old and is seen for screening. The patient has no family history of breast cancer. The patient has no personal history of cancer. VIEWS: The views performed were: bilateral craniocaudal with tomosynthesis and bilateral mediolateral oblique with tomosynthesis. FILMS COMPARED: The present examination has been compared to prior imaging studies performed at [facility] on 04/19/2012, 04/22/2014 and 12/14/2017. This study has been interpreted with the assistance of computer-aided detection. MAMMOGRAM FINDINGS: There are scattered fibroglandular densities. There is an asymmetry with associated calcifications seen in the MLO view only seen in the posterior upper region of the right breast. In the left breast, there are no suspicious masses, calcifications or areas of architectural distortion. IMPRESSION: ASYMMETRY IN THE RIGHT BREAST REQUIRES ADDITIONAL EVALUATION. RECOMMEND DIAGNOSTIC MAMMOGRAM. THE RESULTS OF THIS EXAM WERE SENT TO THE PATIENT. ACR BI-RADS Category 0 - Incomplete: Need additional imaging evaluation. [facility] will notify the patient of the need for additional imaging services. MAMMOGRAPHY NOTE: 1. A negative mammogram report should not delay a biopsy if a dominant of clinically suspicious mass is present. 2. Approximately 10% to 15% of breast cancers are not detected by mammography. 3. Adenosis and dense breasts may obscure an underlying neoplasm. Reported by: NENA HARMAN MD Electonically Signed: [id number]
--- NOTE | 2018-12-18 15:32 | BD ---
BONE DENSITOMETRY USING DEXA: Date: 12/18/18 HISTORY: Screening study. Postmenopausal female. FINDINGS: Right Hip: Femoral Neck: 0.936 T-Score: 0.8 Z-Score: 2.2 Total Femur: 1.108 T-Score: 1.4 Z-Score: 2.5 Left Hip: Femoral Neck: 0.868 T-Score: 0.2 Z-Score: 1.6 Total Femur: 1.050 T-Score: 0.9 Z-Score: 2.0 IMPRESSION: Right Hip: WHO classification normal. Left Hip: WHO classification normal. FRAX not reported because all T-Scores are at or above -1.0. POS: OFF
== END 2018-12-18 12:50 | disposition home or self-care (01) ==
LOC: BICMAMMO 12:49
PROVIDERS: ATTEND Family Medicine
DX: Z12.31 Encounter for screening mammogram for malignant neoplasm of breast (principal); Z13.820 Encounter for screening for osteoporosis; Z78.0 Asymptomatic menopausal state; N64.89 Other specified disorders of breast
CPT/HCPCS: 77063; 77067; 77080

== ENCOUNTER 2019-01-22 13:43 | Outpatient (CLI) | payer BC ==
--- NOTE | 2019-01-22 14:09 | MMO ---
Right Breast MAMMO Unilat Diag [facility]DI RT[facility]ERA. CLINICAL HISTORY: Patient is 63 years old and is seen for diagnostic exam. The patient has no family history of breast cancer. The patient has no personal history of cancer. VIEWS: The views performed were: . FILMS COMPARED: The present examination has been compared to prior imaging studies performed at [facility] on 04/19/2012, 04/22/2014, 12/14/2017 and 12/18/2018. This study has been interpreted with the assistance of computer-aided detection. MAMMOGRAM FINDINGS: There are scattered fibroglandular densities. There are stable benign appearing calcifications seen in the right breast. The questionable asymmetric density did not persist with the additional views. There are no suspicious masses, suspicious calcifications, or new areas of architectural distortion. IMPRESSION: THERE IS NO MAMMOGRAPHIC EVIDENCE OF MALIGNANCY. A ROUTINE FOLLOW-UP MAMMOGRAM IN 1 YEAR IS RECOMMENDED. THE RESULTS OF THIS EXAM WERE SENT TO THE PATIENT. ACR BI-RADS Category 2 - Benign finding MAMMOGRAPHY NOTE: 1. A negative mammogram report should not delay a biopsy if a dominant of clinically suspicious mass is present. 2. Approximately 10% to 15% of breast cancers are not detected by mammography. 3. Adenosis and dense breasts may obscure an underlying neoplasm. Reported by: COREY HERNÁNDEZ MD Electonically Signed: [id number]
== END 2019-01-22 13:44 | disposition home or self-care (01) ==
LOC: BICMAMMO 13:43
PROVIDERS: ATTEND Family Medicine
DX: R92.8 Other abnormal and inconclusive findings on diagnostic imaging of breast (principal)
CPT/HCPCS: G0279

== ENCOUNTER 2019-03-04 20:02 | Inpatient (IN) | payer BC ==
[~2019-03-04 20:02] MED LIST: Iopamidol-370 76% 500 ML 1 ML ONE
[2019-03-04 20:34] LABS: #Eosinphils 0.1 thou/uL (0.0-0.7); #Lymphocytes 1.9 thou/uL (1.20-3.40); #Monocytes 1.2 thou/uL (0.11-0.59); #Neutrophils 11.4 thou/uL (1.40-6.50); %Basophils 0.3 % (0.0-1.0); %Eosinophils 0.6 % (0.0-10.0); %Lymphocytes 12.7 % (21.0-51.0); %Monocytes 8.5 % (0.0-10.0); %Neutrophils 77.9 % (42.0-75.0); Hemoglobin 12.7 g/dL (12.0-16.0); Mean Corpuscular HGB CONC 32.6 g/dL (32.0-36.0); Mean Corpuscular Hemoglobin 34.2 pg (27.0-31.0); Mean Platelet Volume 7.6 fL (7.4-10.4); Platelet Count 190 thou/uL (130-400); Red Blood Cell (RBC) Count 3.71 mill/uL (4.20-5.40); White Blood Cell (WBC) Count 14.7 thou/uL (4.8-10.8)
--- NOTE | 2019-03-04 20:40 | RAD ---
EXAM: CHEST ONE VIEW HISTORY: Shortness of breath COMPARISON: 06/08/2018 FINDINGS: Cardiac silhouette is magnified by projection but stable in size. Pulmonary vasculature is at the upp er limits normal. There is scarring seen at the right lung base which was noted on recent CT thorax on 12/01/2018. However, there does appear to be greater patchy airspace opacity at the right lung bas e on the current study which may be related to scarring. Superimposed pneumonitis cannot be excluded.. Postsurgical changes are seen in the right hilar region. There is a small pulmonary nodule overlying the right upper lung zone. A pulmonary nodule was seen in this region on CT pulmonary lung scan on 12/01/2018. Postsurgical changes lower cervical spine are noted. Vascular calcifications are seen in thoracic aorta. IMPRESSION: 1. Pleural and parenchymal changes right lung base which is thought to most likely related to pleural and parenchymal scarring, but the airspace densities are greater than on the study of 06/08/2018. Superimposed acute infectious process cannot be entirely excluded. Follow-up PA and lateral chest x-r ay suggested. 2. Right upper lobe pulmonary nodule. Pulmonary nodule was seen in this region on the prior CTs of e thorax on 06/08/2018 and 12/14/2017
[2019-03-04] MEDS ORDERED: methylPREDNISolone Sod Succ/PF 125 MG/2 ML VIAL ONE (20:51)
[2019-03-04] MEDS ORDERED: Magnesium 2 GM/50 ML BAG (IN WATER) ONE (20:51)
[2019-03-04] MEDS ORDERED: cefTRIAXone\\ROCEPHIN 2 GM VIAL ONE (20:51)
[2019-03-04 20:55] LABS: ALT (SGPT) 27 U/L (8-55); AST (SGOT) 88 U/L (5-34); Albumin 3.9 g/dL (3.4-4.8); Alkaline Phosphatase 72 U/L (40-110); Anion Gap 17 mmol/L (10-20); BUN (Urea Nitrogen) 38 mg/dL (9.8-20.1); Bilirubin, Total 0.4 mg/dL (0.2-1.2); Calc. Creatinine Clearance 0 mL/min (70-130); Calcium 9.5 mg/dL (7.8-10.44); Carbon Dioxide 28 mmol/L (23-31); Chloride 93 mmol/L (98-107); Estimated GFR-MDRD 25; Globulin 3.9 g/dL (2.4-3.5); Glucose 136 mg/dL (80-115); Potassium 3.7 mmol/L (3.5-5.1); Protein, Total 7.8 g/dL (6.0-8.3); Sodium 134 mmol/L (136-145)
[2019-03-04] MEDS ORDERED: Azithromycin 500 MG VIAL ONE (21:14)
[2019-03-04 21:24] LABS: Bacteria/HPF None Seen HPF (None Seen); Bilirubin Negative (Negative); Blood, Urine Negative (Negative); Clarity Clear (Clear); Glucose, Urine (Dipstick) Normal (Negative); Leukocyte Negative Leu/uL (Negative); Nitrite Negative (Negative); Protein, Urine (Dipstick) 50 mg/dL (Neg-Trace); RBC/HPF 0-3 HPF (0-3); Squamous Epithelial 0-3 HPF (0-3); Urobilinogen Normal mg/dL (Less than 2); WBC/HPF 0-3 HPF (0-3)
[2019-03-04 21:33] LABS: CKMB 25.2 ng/mL (0-6.6)
[2019-03-04] MEDS ORDERED: Norepinephrine 8 MG/0.9% NS 250 ML ONE (21:49)
[2019-03-04 22:13] LABS: INR-International Normal Ratio 1.1; PTT 39.8 SEC (22.9-36.1); Prothrombin Time 14.6 SEC (12.0-14.7)
[2019-03-04 23:21] LABS: Lactic Acid 0.7 mmol/L (0.5-2.2)
--- NOTE | 2019-03-04 23:24 | CT ---
CT ABDOMEN AND PELVIS WITH IV CONTRAST: History: Shortness of breath, fever. Abdominal pain, swelling. Comparison: PET CT exam, 05-10-15 FINDINGS: There are bibasilar reticular nodular densities as well as patchy parenchymal densities, worrisome fo r aspiration pneumonitis. Tiny right pleural effusion is present. These findings were better describe d on CTA chest also obtained at this time. A 3 cm hypodense lesion is seen in the inferior aspect of the spleen suggestive of a splenic cyst. The liver, pancreas, bilateral adrenal glands, and kidneys demonstrate a normal CT appearance. The urinary bladder is mostly decompressed and grossly normal in appearance. The uterus has a normal appearance for patient's age. Vascular calcifications are seen in the abdominal aorta and involving the iliac arteries. The gallbladder is distended with suggestion of mild thickening of the wall of the gallbladder with m inimal adjacent pericholecystic changes. Findings could be related to cholecystitis in the correction clinical scenario. The common duct at the level of the pancreatic head is dilated measuring 1.3 cm but tapers near the level of ampulla. No significant intrahepatic biliary ductal dilatation is identi fied. Post-operative and degenerative changes of the lumbar spine are noted. IMPRESSION: 1. Gallbladder distension with suggestion of minimal gallbladder wall thickening and adjacent pericho lecystic inflammatory changes. Findings could be related to cholecystitis in the correct clinical sce nario. 2. Mild dilatation of the common duct without significant intrahepatic biliary ductal dilatation. 3. Probable splenic cyst. 4. Bibasilar small density as well as reticular nodule, worrisome for aspiration pneumonitis given fi ndings on recent CTA thorax also obtained at this time. 5. Above findings and findings on CTA chest/abdomen/pelvis were discussed with Dr. Paiz in the Em ergency Department on 03-04-2019 at 2305 hours. POS: [facility]
[2019-03-04] MEDS ORDERED: metroNIDAZOLE 500 MG/100 ML BAG ONE (23:30)
--- NOTE | 2019-03-05 00:03 | CT ---
CT ANGIOGRAM THORAX WITH IV CONTRAST AND 3D RECONSTRUCTION: History: Shortness of breath, fever. Comparison: Noncontrast CT thorax, 06-08-18. FINDINGS: No filling defects are seen in the pulmonary arteries to suggest a pulmonary embolus. Vascular calcifications are seen in the thoracic aorta. The thoracic aorta is normal in caliber. There is decreased density seen within the distal portion of the trachea and in each mainstem bronchu s which may be related to aspiration. There is parenchymal airspace density which is confluent in the right lower lobe with reticular nodular densities also seen in the right lower lobe. There are post- surgical changes in the mediastinum with findings related to partial lung resection on the right. The re is debris seen within the right lower lobe bronchial. Peribronchial thickening identified. The ret icular nodular densities and parenchymal opacities in the right lower lobe may be attributable to asp iration pneumonitis. Mild patchy densities are seen in the left lower lobe which also could be relate d to aspiration pneumonitis. Soft tissue density seen in the hilar regions bilaterally suggesting lymphadenopathy. There is a mild enlarged right paratracheal lymph node identified which measures 1.5 cm. Tiny right pleural effusion is identified. IMPRESSION: 1. Findings worrisome for aspiration with fluid/debris within the tracheal airway, extending into the bilateral mainstem bronchi and into the bronchi and bronchioles, greater in the right lower lobe whe re there is parenchymal consolidation and prominent reticulonodular densities throughout the majority of the right lower lobe as well as patchy parenchymal densities at each lung base. Findings are worr isome for aspiration pneumonitis or possibly bibasilar pneumonia. Fluid and debris in the airways sifuentes s significantly narrow the airways. 2. Peribronchial thickening, greater in the lower lobes and on the right, which could be related to b ronchiolitis. 3. Mediastinal and hilar lymphadenopathy which may be reactive. 4. No CT evidence of a pulmonary embolus. 5. Tiny right pleural effusion. 6. CT of the abdomen is performed with this examination. Please see that report for further details. POS: [facility]
--- NOTE | 2019-03-05 00:14 | RAD ---
PORTABLE AP CHEST RADIOGRAPH: History: Central line placement. Comparison: 03-04-2019 at 2001 hours. FINDINGS: There has been interval placement of a left internal jugular vein central venous catheter with the ti p overlying the mediastinum just to the right of midline and overlies the expected location of the ju nction of the innominate vein and IVC. Cardiac silhouette is within normal limits. There is increase in interstitial density seen bilaterally with parenchymal densities seen within the right midlung zon e. Parenchymal density at the right lung base is less prominent, but also persists. Findings are worr isome for infectious process or possibly aspiration pneumonitis, especially given findings of recent CT angiogram thorax. No other interval change. IMPRESSION: 1. Interval placement of a right internal jugular vein central venous catheter with tip overlying the mediastinum. 2. Increased interstitial markings bilaterally with greater patchy parenchymal densities in the right midlung zone and right lung base, as well as the left lung base which could be related to areas of p neumonia or aspiration pneumonitis. Follow up to resolution is recommended. POS: [facility]
[2019-03-05 00:53] LABS: Troponin I 0.198 ng/mL (< 0.028)
[2019-03-05] MEDS ORDERED: Lactated Ringer's 1,000 ML IV SCH (01:00)
[2019-03-05] MEDS ORDERED: Vancomycin HCl 1 GM in Premix Bag 1 BAG IVPB SCH (01:00)
[2019-03-05 01:24] VITALS: BMI 31.1
[2019-03-05] MEDS ORDERED: Piperacillin/Tazobactam 3.375 GM in Sodium Chloride 0.9% 100 ML IVPB SCH (02:00)
[2019-03-05] MEDS ORDERED: Acetaminophen 500 MG TAB PO PRN (03:34)
[2019-03-05] MEDS ORDERED: CCU Electrolyte Replacement 1 EACH FS SCH (03:34)
[2019-03-05] MEDS ORDERED: Benzonatate 100 MG CAP PO PRN (03:34)
[2019-03-05] MEDS ORDERED: Diabetic Tussin 200 MG/10 ML UDCUP PO PRN (03:34)
[2019-03-05] MEDS ORDERED: Ondansetron PF 4 MG/2 ML Vial IVP PRN (03:34)
[2019-03-05] MEDS ORDERED: Norepinephrine 8 MG/0.9% NS 250 ML IVPB SCH (03:34)
[2019-03-05] MEDS ORDERED: Ondansetron ODT 4 MG TAB PO PRN (03:34)
[2019-03-05] MEDS ORDERED: Bacteriostatic Water 30 ML VIAL FS PRN (03:44)
[2019-03-05] MEDS ORDERED: Magnesium 2 GM/50 ML 2 GM in Premix Bag 1 BAG IVPB PRN (03:45)
[2019-03-05] MEDS ORDERED: CCU ELECTROLYTE REPLACEMENT PROTOCOL FS PRN (03:45)
[2019-03-05] MEDS ORDERED: Potassium Phosphate 9 MMOL in Sodium Chloride 0.9% 100 ML IVPB PRN (03:45)
[2019-03-05] MEDS ORDERED: Potassium Phosphate 15 MMOL in Sodium Chloride 0.9% 250 ML 250 ML IV PRN (03:45)
[2019-03-05] MEDS ORDERED: Potassium Chloride 20 MEQ TAB PO PRN (03:45)
[2019-03-05] MEDS ORDERED: PHOS-NAK 1 PKT PACK PO PRN ×2 (03:45)
[2019-03-05] MEDS ORDERED: Potassium Chloride 40 MEQ in Premix Bag 1 BAG IVPB PRN (03:45)
[2019-03-05] MEDS ORDERED: Magnesium Oxide 400 MG TAB PO PRN ×2 (03:45)
[2019-03-05] MEDS ORDERED: Potassium Phosphate 12 MMOL in Sodium Chloride 0.9% 250 ML 250 ML IV PRN (03:45)
[2019-03-05] MEDS ORDERED: Potassium Chloride 40 MEQ in Sodium Chloride 0.9% 250 ML 250 ML IVPB PRN (03:45)
[2019-03-05] MEDS: Sodium Chloride 0.9% 1,000 ML IV SCH ×4 (03:55→23:58)
--- NOTE | 2019-03-05 04:52 | HP ---
PRIMARY CARE PROVIDER: Dr. Maurice Colbert. CHIEF COMPLAINT: Shortness of breath. HISTORY OF PRESENT ILLNESS: This is a 64-year-old female, who initially presented to [facility] Emergency Department complaining of persistent shortness of breath over the last 4 days. The patient also noted with fever up to 101 degrees Fahrenheit. The patient denied any known sick contacts or exposure history. The patient admits to a productive cough with associated abdominal pain. The patient also reports history of COPD with chronic tobacco abuse. History is obtained after review of electronic medical record as well as discussions with the emergency room attending as the patient is somnolent and unable to provide a coherent history. The patient had reported increased pain of her chest and abdomen with deep inspiration, not relieved by any specific movement or change of position. The patient denied any recent change to her chronic medication regimen. In the emergency room, the patient underwent extensive evaluation after meeting sepsis criteria with associated septic shock. The patient received IV metronidazole, azithromycin, Rocephin, Solu-Medrol, intravenous normal saline, magnesium sulfate, DuoNeb, and placed on Levophed infusion. Chest imaging was concerning for aspiration pneumonia with debris and food particles noted in the trachea and mainstem bronchus. The patient was transferred to the Critical Care Unit on high-flow nasal cannula for further evaluation and monitoring. PAST MEDICAL HISTORY: 1. Opioid dependence. 2. Tobacco abuse. 3. Chronic obstructive pulmonary disease. 4. History of lung cancer. 5. Peripheral neuropathy. 6. Hypertension. PAST SURGICAL HISTORY: 1. Status post cervical spine surgery. 2. Status post lumbar spine surgery. 3. Status post thoracotomy. CURRENT MEDICATIONS: 1. Tylenol No. 3 one tablet p.o. q.8 hours p.r.n. 2. ProAir HFA 2 puffs inhaled q.4 hours p.r.n. 3. Alprazolam 0.5 mg p.o. t.i.d. p.r.n. 4. Amlodipine 2.5 mg p.o. daily. 5. Lipitor 20 mg p.o. daily. 6. Chlorthalidone 25 mg p.o. daily. 7. Flexeril 10 mg p.o. t.i.d. p.r.n. 8. Cymbalta 30 mg p.o. b.i.d. 9. Gabapentin 800 mg p.o. q.i.d. 10. Levothyroxine 137 mcg p.o. daily. 11. Remeron 15 mg p.o. at bedtime. 12. Quinapril 40 mg p.o. daily. 13. Thiamine 100 mg p.o. daily. ALLERGIES: NO KNOWN DRUG ALLERGIES. FAMILY HISTORY: Mother with hypertension and COPD. Positive alcohol abuse on both sides of the family. SOCIAL HISTORY: Resides in [place], [place]. . Drinks up to 5 alcoholic beverages daily. No illicit drug use. Smokes up to a pack of cigarettes daily. REVIEW OF SYSTEMS: Unobtainable as the patient is somnolent and unable to provide any coherent history. PHYSICAL EXAMINATION: VITAL SIGNS: On admission; blood pressure 78/45, pulse 88, respiratory rate 20, temperature 100.1 degrees Fahrenheit, O2 saturation 90% on 2 L/minute by nasal cannula. GENERAL APPEARANCE: This is a 64-year-old female, currently on high-flow nasal cannula, somnolent, minimally responsive to voice commands and tactile stimulation. HEENT: Pupils are equal, round, reactive to light and accommodation. Extraocular muscles are intact. No scleral icterus. No conjunctival injection. Nares patent. High-flow nasal cannula in place. OP is clear with dry oral mucosa. NECK: Supple. No cervical adenopathy. No thyromegaly. No carotid bruits. No JVD appreciated. Cervical spine with full active and passive range of motion. No meningeal signs noted. CHEST: Diminished breath sounds with coarse rhonchi bilaterally in all lung shin. Diminished air flow bilaterally. CARDIOVASCULAR: S1, S2 without noted murmur, rub, or gallop. Distant heart sounds noted. ABDOMEN: Obese, soft, nontender, and nondistended. Bowel sounds are positive in all 4 quadrants. No palpable mass. No rebound or guarding appreciated. EXTREMITIES: Warm and dry with fair turgor. No clubbing, cyanosis, or asymmetric edema appreciated. Pulses palpable distally at the dorsalis pedis, posterior tibial, and popliteal arteries bilaterally. Capillary refill less than 2 seconds. NEUROLOGIC: Somnolent, minimally responsive to tactile and voice\ commands. Mumbles a few phrases when asked direct questions. PERTINENT LABORATORY AND X-RAY FINDINGS: Sodium 134, potassium 3.7, chloride 93, CO2 of 28, BUN 38, creatinine 2.03, estimated GFR of 25, glucose 136, lactic acid level ranged between 0.7 to 2.4, calcium 9.5, AST 88, ALT 27, alkaline phosphatase 72, total bilirubin 0.4. Troponin I ranged between 0.198 to 0.334. BNP 274, previously 102 on 06/08/2018. Lipase 22. CBC showed a white blood cell count of 14.7, hemoglobin 12.7, hematocrit 39, MCV 105, and platelet count 190 with 78% neutrophils. Urinalysis showed 21 to 50 hyaline casts. Influenza A and B antigen dated 03/04/[address] angiogram of the chest dated 03/04/2019 showed fluid and debris within the tracheal airway extending into the bilateral mainstem bronchi, greater on the right lower lobe. Concern for aspiration pneumonitis and bibasilar pneumonia. Mediastinal and hilar lymphadenopathy noted. No evidence for pulmonary embolus. Portable chest x-ray dated 03/04/2019 showed right internal jugular vein central venous catheter. Increased interstitial markings bilaterally. CT of the abdomen and pelvis dated 03/04/2019 showed gallbladder distention with minimal gallbladder wall thickening and mild pericholecystic inflammatory changes. Mild dilation of the common bile duct without significant intrahepatic biliary ductal dilatation. EKG dated 03/04/2019 by my interpretation shows sinus mechanism with heart rates in the 80s. Normal R-wave progression noted in the precordial leads. Normal axis. No acute ST-T wave changes appreciated. ASSESSMENT/PLAN: 1. Severe sepsis with septic shock. The patient will be admitted to the Critical Care unit. Suspect secondarily to aspiration pneumonia/pneumonitis. We will continue general sepsis protocol. Levophed infusion to maintain systolic blood pressure greater than or equal to 100. Continue intravenous normal saline at 100 mL/hour. Continue IV antibiotic therapy as outlined below. 2. Acute hypoxic hypercapnic respiratory failure. Secondarily to #1. We will continue high-flow via nasal cannula and titrate to clinical response. DuoNeb q.4 hours with additional Solu-Medrol 40 mg IV q.6 hours. 3. Aspiration pneumonia. Suspected given CT findings as stated previously. Continue Levaquin 750 mg IV q.24 hours with additional Zosyn 3.375 g IV q.6 hours and vancomycin 1 g IV q.12 hours. DuoNeb q.4 hours p.r.n. Consider Speech evaluation given aspiration. 4. Acute kidney injury. Suspect multifactorial including poor oral intake. Continue intravenous fluids as outlined previously. Avoid nephrotoxic agents and limit contrast exposure. 5. Non-ST elevation myocardial infarction type 2. Suspect demand ischemia in the context of #1. Continue supportive management. Aspirin 300 mg per rectum daily. Consult Cardiology Service in the a.m. Check 2D transthoracic echocardiogram for ejection fraction and wall motion abnormalities. 6. Polypharmacy. Suspect component of current presentation. Case management consult for any further outpatient resources and followup. 7. Prophylaxis. SCDs while in bed. Pepcid 20 mg IV q.12 hours. PT evaluation when clinically stabilizing. 8. Code status is full. Surrogate medical decision maker is the patient's spouse. Job ID: [id number]
[2019-03-05] MEDS ORDERED: Piperacillin/Tazobactam 4.5 GM in Sodium Chloride 0.9% 100 ML IVPB SCH (06:00)
[2019-03-05] MEDS ORDERED: methylPREDNISolone Sod Succ 40 MG VIAL IVP SCH (06:00)
[2019-03-05] MEDS: Piperacillin/Tazobactam 3.375 GM in Sodium Chloride 0.9% 100 ML IVPB SCH ×4 (06:01→23:40)
[2019-03-05 06:50] LABS: Troponin I 0.115 ng/mL (< 0.028)
--- NOTE | 2019-03-05 07:54 | ULT ---
RIGHT UPPER QUADRANT ULTRASOUND: HISTORY: Cholangitis. COMPARISON: CT abdomen also obtained on this date. FINDINGS: The liver demonstrates increased echogenicity relative to the right kidney suggestive of diffuse fatt y infiltration. No focal hepatic lesion is identified. The gallbladder is distended measuring 12 cm in length, and there is mild gallbladder wall thickening measuring 0.6 cm. Trace amount of pericholecystic fluid is seen. The common duct is dilated measuring 9 mm. No definite intrahepatic biliary ductal dilatation is sam reciated. The right kidney demonstrates normal sonographic appearance and measures 10.6 cm in length. The very limited visualized portions of the pancreas and visualized portions of the IVC demonstrate a normal sonographic appearance. IMPRESSION: 1. Gallbladder distension with gallbladder wall thickening and a trace amount of pericholecystic flu id. Findings may be related to acalculus cholecystitis in the correct clinical scenario. No gallbla dder calculi are seen. 2. Dilatation of the common duct measuring 9 mm in diameter. POS: [facility]
--- NOTE | 2019-03-05 08:29 | RAD ---
EXAM: Single view of the chest HISTORY: Aspiration pneumonia COMPARISON: 03/04/2019 FINDINGS: Single view of the chest shows a normal sized cardiomediastinal silhouette. The central li ne is unchanged in position. Increased interstitial markings are present. There may be a small right pleural effusion with adjacent atelectasis. The bones are unremarkable. IMPRESSION: Stable exam
[2019-03-05 09:42] LABS: Troponin I 0.113 ng/mL (< 0.028)
[2019-03-05] MEDS: Famotidine/PF 20 mg/2ml Vial SLOW IVP SCH (09:51)
[2019-03-05] MEDS: Aspirin 300 MG Suppository PR SCH (09:51)
[2019-03-05 11:39] LABS: Actual Bicarbonate (HCO3a) 23.9 mEq/L (22-28); CO2 Tension 50.9 mmHg (35.0-45.0); Carboxyhemoglobin (COHb) 1.1 gm% (0.0-3.0); Hemoglobin (Hb) 11.9 g/dL (12.0-16.0); O2 Tension (PaO2) 67.8 mmHg (> 80.0); Potassium - ABG Lab 3.72 mmol/L (3.70-5.30); pH, Arterial 7.29 (7.35-7.45)
[2019-03-05 11:42] LABS: ALV-art Gradient 110.995 (0-20); Puncture Site RRA
--- NOTE | 2019-03-05 12:05 | CON ---
DATE OF CONSULTATION: 03/05/2019 SERVICE: Pulmonary Medicine. REASON FOR CONSULTATION: ICU patient. HISTORY OF PRESENT ILLNESS: The patient is a 64-year-old white female with past medical history significant for history of lung cancer, status post lobectomy. This happened roughly 4 or 5 years ago. She also has some COPD. She presented to the emergency department with roughly a 3- to 4-day history of increasing shortness of breath and cough. Originally, she had some white phlegm, but it started becoming colorful with yellow and green sputum. She ran a temperature of 101 degrees. She presented to the emergency department, and was discovered to have very low blood pressure. Since being in the hospital, her blood pressures have firmed up a little bit. She denies any fevers, chills, nausea or vomiting overnight. She had normal bowel movement a day before coming to the emergency department. PAST MEDICAL HISTORY: 1. History of lung cancer, status post lobectomy. 2. COPD. 3. Tobacco abuse. 4. Opioid dependence. 5. Peripheral neuropathy. 6. Hypertension. PAST SURGICAL HISTORY: 1. C-spine surgery. 2. Lumbar spine surgery. 3. Lobectomy. ALLERGIES: NO KNOWN DRUG ALLERGIES. MEDICATIONS: Lists of her inpatient medications were reviewed. No specific updates were made at this time. FAMILY HISTORY: Noncontributory. SOCIAL HISTORY: She drinks 5 drinks on a daily basis. Denies any illicit drugs. She continues to smoke a half pack of cigarettes per day, has greater than a [id number] history of smoking. She has no exposure to chemicals, dust, asbestos or tuberculosis REVIEW OF SYSTEMS: General, head, ears, eyes, nose, throat, cardiovascular, respiratory, GI, , musculoskeletal, neurologic, and skin are negative except as mentioned in HPI. PHYSICAL EXAMINATION: VITAL SIGNS: Afebrile, pulse 73, blood pressure 102/65, respirations 20, and saturation 93%, currently on 40% FiO2 delivered via high-flow nasal cannula. GENERAL: The patient is awake and alert, in no apparent distress. LUNGS: Wonderful air entry. Crackles are present. They are more pronounced in the right side. There is a prolonged expiratory phase with polyphonic wheezing, though she seems to be moving decent air. HEART: Normal rate. Regular. ABDOMEN: Soft, nontender, and nondistended. Bowel sounds are positive. MUSCULOSKELETAL: No cyanosis or clubbing. There is no pitting in the bilateral lower extremities. NEUROLOGIC: Grossly nonfocal. She does demonstrate asterixis. This is quite pronounced. LABORATORY DATA: WBC 14.7, hemoglobin 12.7, and platelets 190,000. INR 1.1, D-dimer 1.62. Troponin is downtrending to 0.113, lipase 22, and lactate 0.7. Creatinine 2.03, which is well above baseline, BUN 38. Basic metabolic profile is otherwise unremarkable. AST 88, ALT 27. Urinalysis is unremarkable. Blood cultures x2 and influenza A and B are negative. IMAGIN. Chest x-ray demonstrates atelectasis of the right lower lobe. Volume loss on the right with clips in the right hilum. There is a left IJ central venous catheter , which terminates high. Alveolar and interstitial infiltrates are both present. 2. Abdominal ultrasound demonstrates distended gallbladder with gallbladder wall thickening and a trace amount of pericholecystic fluid. Common bile duct is dilated. 3. CT of the abdomen and pelvis demonstrates gallbladder distention and dilation of the common bile duct. Reticular nodular densities are present in the right base. 4. CTA of the chest demonstrates no evidence of a pulmonary embolism. The right upper lobe is surgically absent. There is a right lower lobe infiltrate, and a left basilar infiltrate present, possibly consistent with pneumonia. ASSESSMENT: 1. Acute hypoxic respiratory failure. 2. Community-acquired pneumonia. 3. Septic shock. 4. Acute cholecystitis, suspected. 5. History of lung cancer, status post right upper lobectomy. 6. Alcohol and narcotic dependence. 7. Acute kidney injury, improving. 8. Non-ST elevation SC, secondary to demand. DISCUSSION AND PLAN: The patient does have some asterixis. I will get an ABG making certain there was no significant hypercapnia and an ammonia level. If the ABG looks okay, she remains off pressors into the afternoon, she be considered for transition to the floor. I will continue antibiotics, directed at aspiration coverage, which should also nicely cover a GI louie. Levaquin and vancomycin will be interrupted. Pulmonary/Critical Care will follow along, particularly in this location. 70 minutes have been devoted to this patient in various activities. I personally reviewed all imaging studies and laboratory data noted within this document. For fifty percent of this time, I was interacting with the patient at the bedside or coordinating care with the care team. For the remainder of the time I was immediately available to the patient in the hospital unit. Job ID: [id number] MTDD
--- NOTE | 2019-03-05 13:52 | PDOC.HOSPP ---
- Subjective Subjective: pt seen; lethargic. and wants to have something to eat; NPO for sux evaluation - d/w RN - Objective Vital Signs & Weight: Vital Signs (12 hours) Temp Pulse Resp Pulse Ox 03/05/19 13:32 74 16 92 L 03/05/19 11:04 76 16 97 03/05/19 11:00 8.7 F L 03/05/19 08:00 98.4 F 92 L 03/05/19 07:14 67 12 96 03/05/19 04:00 98.4 F Weight Weight 205 lb 0.478 oz Most Recent Monitor Data Heart Rate from ECG 70 NIBP 99/61 NIBP BP-Mean 73 Respiration from ECG 18 SpO2 100 I&O: 03/04/19 03/05/19 03/06/19 06:59 06:59 06:59 Intake Total 633.4 Output Total 0 1450 Balance 633.4 -1450 Result Diagrams: 03/04/19 20:16 03/04/19 20:16 Hospitalist ROS - Medication Medications: Active Medications Generic Name Dose Route Start Last Admin Trade Name Freq PRN Reason Stop Dose Admin Albuterol/Ipratropium 3 ml 03/05/19 13:00 03/05/19 13:32 Duoneb NEB 3 ml [id number] MARLENE Administration Aspirin 300 mg 03/05/19 09:00 03/05/19 09:51 Aspirin TX 300 mg DAILY MARLENE Administration Famotidine 20 mg 03/05/19 09:00 03/05/19 09:51 Pepcid SLOW IVP 20 mg QAM MARLENE Administration Sodium Chloride 1,000 mls @ 100 mls/hr 03/05/19 03:34 03/05/19 03:55 Normal Saline 0.9% IV 1,000 mls .Q10H MARLENE Administration Piperacillin Sod/Tazobactam 100 mls @ 200 mls/hr 03/05/19 06:00 03/05/19 13: 04 Sod 3.375 gm/ Sodium Chloride IVPB 100 mls Q6HR MARLENE Administration Sodium Chloride 10 ml 03/05/19 09:00 03/05/19 09:51 Flush - Normal Saline IVF 10 ml Q12HR MARLENE Administration Sterile Water 1 ml 03/05/19 03:44 03/05/19 06:01 Bacteriostatic Water FS 1 ml PRN PRN Administration RECONSTITUTION - Exam General Appearance: awake alert, ill appearing ENT: normocephalic atraumatic Neck: symmetric, no JVD Heart: RRR Respiratory: CTAB, no wheezes Gastrointestinal: soft, normal bowel sounds Extremities: no cyanosis Neurological: no focal deficits Hosp A/P - Plan old records reviewed/req septic shock 2/2 asp PNA Aspiration Pneumonia Hypoxic resp failure 2/2 Asp PNA -on pressors -- weaned off the pressor -IVF, fw ont he pranav -vanc. zosy and LQ for now Leukocytosis -as above -fw ont eh culture VANESSA -d/t sepsis - fw on the trend Acalculous cholecystitis - sepsis vs.. acute cholecystitis -US w.. GBW thickening -sux consulted. Full code
--- NOTE | 2019-03-05 17:55 | CON ---
DATE OF CONSULTATION: CHIEF COMPLAINT: Sepsis. HISTORY OF PRESENT ILLNESS: The patient is a 64-year-old female, who presented to the emergency room with shortness of breath and fever of 101 with productive cough and abdominal pain. She has severe COPD. PAST MEDICAL HISTORY: COPD, history of lung cancer, hypertension. PAST SURGICAL HISTORY: She has had a cervical spine surgery, lumbar spine surgery, thoracotomy. MEDICATIONS: 1. Tylenol with Codeine. 2. ProAir inhaler. 3. Alprazolam. 4. Amlodipine. 5. Lipitor. 6. Chlorthalidone. 7. Flexeril. 8. Cymbalta. 9. Gabapentin. 10. Levothyroxine. 11. Remeron. 12. Quinapril. 13. Thiamine. ALLERGIES: NO KNOWN DRUG ALLERGIES. FAMILY HISTORY: Hypertension and COPD. SOCIAL HISTORY: She drinks five alcoholic beverages daily. Smokes a pack of cigarettes daily. PHYSICAL EXAMINATION: GENERAL: She is somewhat confused. She is on a non-rebreather mask. VITAL SIGNS: Temperature is 98.4, pulse 76, blood pressure 101/77. She is an obese female, lying still. HEENT: No jaundice. LUNGS: Clear. HEART: Regular rate and rhythm. ABDOMEN: Obese, distended. There is mild tenderness in the right upper quadrant. LABORATORY DATA: Her white count 14.7, H and H 12 and 39, platelet count 190. Electrolytes show sodium 134, chloride 93, BUN 38, creatinine 2, glucose 136. Lactic acid 2.4. Her AST is 88, but all the rest of LFTs are normal. She had an ultrasound that shows a distended gallbladder with trace amount of pericholecystic fluid and mild gallbladder wall thickening. No stones. ASSESSMENT: Possible acalculous cholecystitis. PLAN: Recommend HIDA scan. If HIDA scan shows nonvisualization of the gallbladder, would recommend a cholecystostomy tube due to her multiple other serious medical problems. Job ID: [id number]
--- NOTE | 2019-03-05 18:48 | NM ---
HEPATOBILIARY SCAN: History: Right upper quadrant pain. This examination was performed with the patient being pre-treated with 1.8 mg CCK administered 30 min utes prior to imaging. 12.5 mCi Technetium 99M Mebrofenin were administered. FINDINGS: There is normal distribution of the radiopharmaceutical within the liver. Gallbladder promptly opacif ies at approximately 6-7 minutes. Bowel activity is seen definitively at approximately 25 minutes. An ejection fraction was not requested by the physician. IMPRESSION: Unremarkable hepatobiliary scan. POS: OSCAR
[2019-03-05] MEDS ORDERED: Vancomycin HCl 1.25 GM in Sodium Chloride 0.9% 250 ML 250 ML IVPB SCH (21:00)
[2019-03-05] MEDS ORDERED: FLU VACC QS2019-20(6MOS UP)/PF 60 MCG/0.5 ML SYRINGE IM ONE (21:00)
[2019-03-06 04:40] LABS: Band 13 % (5-11); Hemoglobin 10.9 g/dL (12.0-16.0); Hypochromia SLIGHT = 6-15 cells (100X) (0-5/hpf); Lymphocytes 5 % (21-51); MDiff Complete? YES; Macrocytosis SLIGHT = 6-15 cells (100X) (0-5/hpf); Mean Corpuscular HGB CONC 32.7 g/dL (32.0-36.0); Mean Corpuscular Hemoglobin 34.2 pg (27.0-31.0); Monocytes 7 % (0-10); Neutrophil 75 % (42-75); Platelet Count 174 thou/uL (130-400); Platelet Morphology Comment Appears Adequate; RBC Distribution Width 11.9 % (11.5-14.5); White Blood Cell (WBC) Count 12.2 thou/uL (4.8-10.8)
[2019-03-06 05:09] LABS: ALT (SGPT) 41 U/L (8-55); AST (SGOT) 94 U/L (5-34); Albumin 3.3 g/dL (3.4-4.8); Alkaline Phosphatase 62 U/L (40-110); Anion Gap 10 mmol/L (10-20); BUN (Urea Nitrogen) 18 mg/dL (9.8-20.1); Bilirubin, Total 0.2 mg/dL (0.2-1.2); Calc. Creatinine Clearance 107 mL/min (70-130); Calcium 8.5 mg/dL (7.8-10.44); Carbon Dioxide 30 mmol/L (23-31); Chloride 102 mmol/L (98-107); Estimated GFR-MDRD 74; Globulin 3.3 g/dL (2.4-3.5); Glucose 162 mg/dL (80-115); Potassium 3.2 mmol/L (3.5-5.1); Protein, Total 6.6 g/dL (6.0-8.3); Sodium 139 mmol/L (136-145)
[2019-03-06] MEDS: Piperacillin/Tazobactam 3.375 GM in Sodium Chloride 0.9% 100 ML IVPB SCH ×3 (05:29→18:45)
[2019-03-06 06:46] LABS: ALT (SGPT) 41 U/L (8-55); AST (SGOT) 95 U/L (5-34); Albumin 3.3 g/dL (3.4-4.8); Alkaline Phosphatase 64 U/L (40-110); Bilirubin, Direct 0.2 mg/dL (0.1-0.3); Bilirubin, Total 0.2 mg/dL (0.2-1.2); Protein, Total 6.5 g/dL (6.0-8.3)
[2019-03-06] MEDS: Famotidine/PF 20 mg/2ml Vial SLOW IVP SCH ×2 (09:02→22:16)
[2019-03-06] MEDS: methylPREDNISolone Sod Succ 40 MG VIAL IVP SCH (09:02)
[2019-03-06] MEDS: Aspirin 300 MG Suppository PR SCH (09:10)
[2019-03-06] MEDS: Sodium Chloride 0.9% 1,000 ML IV SCH ×2 (09:12→20:16)
[2019-03-06] MEDS ORDERED: Potassium Chloride 20 MEQ TAB PO SCH (11:15)
--- NOTE | 2019-03-06 11:26 | PRG ---
DATE OF SERVICE: 03/06/2019 SERVICE: Pulmonary Medicine. INTERVAL HISTORY: The patient is breathing a little bit better. Denies any current fevers, chills, nausea, or vomiting. Otherwise, there were no overnight events. She is talking in full sentences today and has no specific complaints otherwise. PHYSICAL EXAMINATION: VITAL SIGNS: Afebrile, pulse 73, blood pressure 137/76, respirations 19, saturation 97%, currently on 3 L nasal cannula. GENERAL: The patient is awake and alert, in no apparent distress. LUNGS: Decreased air entry with a prolonged expiratory phase and polyphonic wheezing. No crackles or wheezing is appreciated. HEART: Normal rate, regular. ABDOMEN: Soft, nontender, and nondistended. Bowel sounds are positive. MUSCULOSKELETAL: No cyanosis or clubbing. No pitting in the bilateral lower extremities. NEUROLOGIC: Grossly nonfocal. LABORATORY DATA: WBC 12.2, hemoglobin 10.9, platelets 174,000. Band count is 13% on top of 75% neutrophils. INR 1.1. Potassium 3.2. Basic metabolic profile and liver function studies are otherwise unremarkable. Folate 11, B12 of 406. Urinalysis is negative. Blood cultures x2, urine culture, influenza are all unremarkable. IMAGING STUDIES: Echocardiogram shows a normal ejection fraction. No mitral stenosis is present. Trace regurgitation is noted. ASSESSMENT: 1. Acute hypoxic respiratory failure. 2. Community-acquired pneumonia. 3. Septic shock. 4. Acute cholecystitis. 5. History of lung cancer, status post right upper lobectomy. 6. Alcohol and narcotic dependence. 7. Acute kidney injury, resolved. DISCUSSION AND PLAN: I will replace the potassium. BiPAP breaks will be initiated and increased to 3 times daily as tolerated. If she can tolerate a good long BiPAP break, she will be a candidate for transition out of the ICU to the floor. Job ID: [id number]
--- NOTE | 2019-03-06 11:31 | CON ---
DATE OF CONSULTATION: 03/06/2019 REASON FOR CONSULTATION: Slight increased troponin in the setting of possible sepsis. HISTORY OF PRESENT ILLNESS: Ms. Brown is a 64-year-old woman, who was admitted to the hospital with shortness of breath, history of chronic obstructive lung disease, and tobacco abuse. She was found to have severe sepsis with septic shock. She was given intravenous fluids and antibiotics. She has gradually improved. Prior to the evaluation, she had a troponin levels drawn, which was elevated as will be outlined below. She is now markedly improved, feels much better. PAST MEDICAL HISTORY: No previous cardiac history. SOCIAL HISTORY: As outlined above. REVIEW OF SYSTEMS: CONSTITUTIONAL: No significant weight gain or loss. VISION: No changes. HEARING: No changes. PULMONARY: No cough or wheezing. GASTROINTESTINAL: No nausea, vomiting, or diarrhea. SKIN: No rashes. PHYSICAL EXAMINATION: GENERAL: This is a pleasant 64-year-old woman, in no distress. VITAL SIGNS: Blood pressure 137/76, pulse 70s. HEENT: Eyes; sclerae nonicteric. Mouth; mucous membranes moist. NECK: Supple. No lymphadenopathy. LUNGS: Clear. CARDIAC: Normal S1. Normal S2. There is no murmur, rub, or gallop. ABDOMEN: Soft, nontender. EXTREMITIES: Warm, dry. No clubbing or cyanosis. There is no edema. LABORATORY DATA: She had a troponin of 0.334, now it is down to 0.113. EKG did not show any acute changes. Echocardiogram showed ejection fraction 55% to 60%. ASSESSMENT: 1. Grx-RX-qwceakwge myocardial infarction type 2 due to demand ischemia. 2. Sepsis pattern, resolved. 3. Mild hypokalemia. PLAN: 1. Supportive care including antibiotics are being given. 2. Replete potassium. 3. No other recommendations at this point. Did strongly advise the patient to use this opportunity to quit smoking. Job ID: [id number]
--- NOTE | 2019-03-06 12:28 | PRG ---
DATE OF SERVICE: 03/06/2019 SUBJECTIVE: The patient is feeling better. They were able to wean her off BiPAP for a little bit, but she is back on it now. OBJECTIVE: VITAL SIGNS: Her temperature is 98.3, pulse 79, and blood pressure 141/78. She is awake on the BiPAP. Still has a little mild tenderness in the upper abdomen. LABORATORY DATA: White count is down to 12, H and H 10 and 33, and platelet count 174. The HIDA scan showed prompt visualization of the gallbladder, ruling out acute cholecystitis. ASSESSMENT AND PLAN: No evidence of acute cholecystitis. No surgical intervention needed. Job ID: [id number]
--- NOTE | 2019-03-06 16:29 | PDOC.HOSPP ---
- Subjective Encounter Date: 03/06/19 Encounter Time: 16:00 Subjective: f/u for resp failure on BiPAP, aspriation PNA, sepsis with shock. Feels better overall but does not remember coming to hospital. - Objective Vital Signs & Weight: Vital Signs (12 hours) Temp Pulse Resp Pulse Ox 03/06/19 13:27 80 26 H 93 L 03/06/19 12:00 98.3 F 03/06/19 08:00 98.3 F 03/06/19 07:48 73 03/06/19 07:46 72 20 95 Weight Weight 205 lb 0.478 oz Most Recent Monitor Data Heart Rate from ECG 79 NIBP 141/78 NIBP BP-Mean 99 Respiration from ECG 21 SpO2 92 I&O: 03/05/19 03/06/19 03/07/19 06:59 06:59 06:59 Intake Total 633.4 3454 290 Output Total 0 3125 490 Balance 633.4 329 -200 Result Diagrams: 03/06/19 04:15 03/06/19 04:15 Additional Labs: Microbiology 03/04/19 20:51 Urine Straight Catheter Urine Culture - Final NO GROWTH AT 36 HOURS 03/04/19 20:25 Nasal swab Influenza Types A,B Direct EIA - Final 03/04/19 Unknown Venous blood - Right Arm Blood Culture - Preliminary NO GROWTH AT 48 HOURS 03/04/19 20:20 Venous blood - Left Arm Blood Culture - Preliminary NO GROWTH AT 48 HOURS Laboratory Tests 03/04/19 03/06/19 20:16 04:15 WBC 14.7 H Neutrophils % 77.9 H Neutrophils % (Manual) 75 Radiology Reviewed by me: Yes (Echo - EF 55-60%) EKG Reviewed by me: Yes (Tele - SR) Hospitalist ROS - Medication Medications: Active Medications Generic Name Dose Route Start Last Admin Trade Name Freq PRN Reason Stop Dose Admin Albuterol/Ipratropium 3 ml 03/05/19 13:00 03/06/19 13:27 Duoneb NEB 3 ml [id number] MARLENE Administration Aspirin 300 mg 03/05/19 09:00 03/06/19 09:10 Aspirin IN 300 mg DAILY MARLENE Administration Sodium Chloride 1,000 mls @ 0 mls/hr 03/05/19 03:34 03/06/19 09:12 Normal Saline 0.9% IV 1,000 mls .Q0M MARLENE Administration As Directed Potassium Chloride 40 meq/ 100 mls @ 50 mls/hr 03/05/19 03:45 03/06/19 06:25 Device IVPB 100 mls ASDIR PRN Administration FOR SERUM K+ 2.5 - 3.5 Piperacillin Sod/Tazobactam 100 mls @ 200 mls/hr 03/05/19 06:00 03/06/19 12: 52 Sod 3.375 gm/ Sodium Chloride IVPB 100 mls Q6HR MARLENE Administration Methylprednisolone Sodium Succinate 40 mg 03/06/19 09:00 03/06/19 09:02 Solu-Medrol IVP 40 mg DAILY MARLENE Administration Sodium Chloride 10 ml 03/05/19 09:00 03/06/19 09:02 Flush - Normal Saline IVF 10 ml Q12HR MARLENE Administration Sterile Water 1 ml 03/05/19 03:44 03/05/19 06:01 Bacteriostatic Water FS 1 ml PRN PRN Administration RECONSTITUTION - Exam General Appearance: NAD, awake alert Eye: PERRL, anicteric sclera ENT: normocephalic atraumatic, no oropharyngeal lesions Neck: supple, symmetric, no JVD, no thyromegaly Heart: RRR, no murmur, no gallops, no rubs, normal peripheral pulses Respiratory - other findings: diminished in bases, occasional exp wheeze Gastrointestinal: soft, non-tender, non-distended, normal bowel sounds, no palpable masses Extremities: no cyanosis, no clubbing, no edema Skin: normal turgor, no lesions Neurological: cranial nerve grossly intact, no new deficit Musculoskeletal: normal tone, normal strength Psychiatric: normal affect, A&O x 3 Hosp A/P (1) Sepsis Code(s): A41.9 - SEPSIS, UNSPECIFIED ORGANISM Status: Acute Qualifiers: Severe sepsis shock status: with septic shock Plan: Secondary to aspiration PNA, continue Zosyn (2) Aspiration pneumonia Code(s): J69.0 - PNEUMONITIS DUE TO INHALATION OF FOOD AND VOMIT Status: Acute Plan: Continue Solumedrol/Zosyn/Duonebs, O2 support (3) Acute respiratory failure with hypoxia and hypercarbia Code(s): J96.01 - ACUTE RESPIRATORY FAILURE WITH HYPOXIA; J96.02 - ACUTE RESPIRATORY FAILURE WITH HYPERCAPNIA Status: Acute Plan: Multifactorial including sepsis/asp PNA (4) Polypharmacy Code(s): Z79.899 - OTHER SNF (CURRENT) DRUG THERAPY Status: Chronic (5) Tobacco abuse Code(s): Z72.0 - TOBACCO USE Status: Chronic Plan: Tobacco cessation resources (6) VANESSA (acute kidney injury) Code(s): N17.9 - ACUTE KIDNEY FAILURE, UNSPECIFIED Status: Acute Plan: Resolving - Plan plan discussed w/ family, continue antibiotics, social group worker, respiratory therapy, out of bed/ambulate, DVT proph w/SCDs Stable currently BiPAP PRN Continue Zosyn Continue Solumedrol Tobacco cessation resources OOB/ambulate Resume Heart Healthy diet Likely home in 48h
[2019-03-06] MEDS ORDERED: ALPRAZolam 0.5 MG TAB PO SCH (23:59)
[2019-03-07] MEDS: Piperacillin/Tazobactam 3.375 GM in Sodium Chloride 0.9% 100 ML IVPB SCH ×5 (00:43→23:50)
[2019-03-07] MEDS ORDERED: ALPRAZolam 0.5 MG TAB PO SCH (06:45)
[2019-03-07] MEDS: Sodium Chloride 0.9% 1,000 ML IV SCH (09:19)
[2019-03-07] MEDS: Gabapentin 400 MG CAP PO SCH ×5 (09:28→20:32)
[2019-03-07] MEDS: Acetaminophen/Codeine 30-300mg Tablet PO PRN (09:28)
[2019-03-07] MEDS: methylPREDNISolone Sod Succ 40 MG VIAL IVP SCH (09:28)
[2019-03-07] MEDS: Cyclobenzaprine 10 MG TAB PO PRN (09:30)
[2019-03-07] MEDS: DULoxetine 60 MG CAP PO SCH ×2 (09:30→20:33)
[2019-03-07] MEDS: Famotidine/PF 20 mg/2ml Vial SLOW IVP SCH ×2 (09:30→20:32)
[2019-03-07] MEDS: ALPRAZolam 0.5 MG TAB PO SCH ×3 (09:55→20:44)
[2019-03-07] MEDS: Ipratropium Oral Inhaler INH SCH ×3 (11:10→19:11)
[2019-03-07] MEDS: Lisinopril 20 MG TAB PO SCH (13:12)
--- NOTE | 2019-03-07 17:00 | PRG ---
DATE OF SERVICE: 03/07/2019 SERVICE: Pulmonary Medicine. INTERVAL HISTORY: The patient is doing good, doing fine from respiratory standpoint. She has BiPAP on and off yesterday. She also used it overnight a little bit. That being said, this morning, she is awake and alert, in no apparent distress. She is upset about being off many of her psychotropic medications, pain medications. Some of them had been gently reintroduced. Otherwise, she has no specific complaints. PHYSICAL EXAMINATION: VITAL SIGNS: Afebrile, pulse 81, blood pressure 128/71, respirations 24, and saturation 95%, currently on 5 L nasal cannula. GENERAL: The patient is awake and alert, in no apparent distress. LUNGS: Decent air entry. There was some dependent crackles present. Rhonchi and wheezing are both noted. HEART: Normal rate and regular. ABDOMEN: Soft, nontender, and nondistended. Bowel sounds are positive. MUSCULOSKELETAL: No cyanosis or clubbing. There is no pitting in the bilateral lower extremities. NEUROLOGIC: Grossly nonfocal. ASSESSMENT: 1. Acute hypoxic respiratory failure. 2. Community-acquired pneumonia. 3. Septic shock, resolved. 4. History of lung cancer, status post right upper lobectomy. 5. Alcohol and narcotic dependence. 6. Acute kidney injury, resolved. DISCUSSION AND PLAN: IV fluids will be interrupted as her appetite is good. Chapman catheter and IJ will be removed. We will continue our mobilization efforts. At this point, I feel she is stable for transition to the floor. She has no further requirements for inpatient Pulmonary or Critical Care opinion, and I will sign off. Please call with additional questions or concerns through time. Job ID: [id number]
--- NOTE | 2019-03-07 20:21 | PDOC.HOSPP ---
- Subjective Encounter Date: 03/07/19 Encounter Time: 16:15 Subjective: f/u for resp failure, PNA, COPD and polysubstance abuse. Feeling better overall and not requiring BiPAP. - Objective Vital Signs & Weight: Vital Signs (12 hours) Temp Pulse Resp BP BP Pulse Ox 03/07/19 19:16 98.4 F 67 16 117/71 93 L 03/07/19 19:11 71 16 93 L 03/07/19 17:46 76 18 127/74 92 L 03/07/19 16:00 98.5 F 03/07/19 13:12 134/71 03/07/19 12:00 98.5 F Weight Weight 205 lb 0.478 oz Most Recent Monitor Data Heart Rate from ECG 75 NIBP 131/73 NIBP BP-Mean 92 Respiration from ECG 23 SpO2 95 I&O: 03/06/19 03/07/19 03/08/19 06:59 06:59 06:59 Intake Total 3454 3174 1476 Output Total 3125 2405 1296 Balance 329 769 180 Result Diagrams: 03/06/19 04:15 03/06/19 04:15 Additional Labs: Microbiology 03/04/19 20:51 Urine Straight Catheter Urine Culture - Final NO GROWTH AT 36 HOURS 03/04/19 20:25 Nasal swab Influenza Types A,B Direct EIA - Final 03/04/19 Unknown Venous blood - Right Arm Blood Culture - Preliminary NO GROWTH AT 48 HOURS 03/04/19 20:20 Venous blood - Left Arm Blood Culture - Preliminary NO GROWTH AT 48 HOURS Laboratory Tests 03/04/19 03/06/19 20:16 04:15 WBC 14.7 H Neutrophils % 77.9 H Neutrophils % (Manual) 75 EKG Reviewed by me: Yes (Tele - SR) Hospitalist ROS - Medication Medications: Active Medications Generic Name Dose Route Start Last Admin Trade Name Freq PRN Reason Stop Dose Admin Acetaminophen/Codeine Phosphate 2 tab 03/07/19 08:46 03/07/19 09:28 Tylenol #3 PO 2 tab Q8H PRN Administration Pain Alprazolam 0.5 mg 03/07/19 09:00 03/07/19 15:27 Xanax PO 0.5 mg TID MARLENE Administration Cyclobenzaprine HCl 10 mg 03/07/19 08:46 03/07/19 09:30 Flexeril PO 10 mg TIDPRN PRN Administration Muscle Spasm Duloxetine HCl 60 mg 03/07/19 09:00 03/07/19 09:30 Cymbalta PO 60 mg BID MARLENE Administration Famotidine 20 mg 03/06/19 21:00 03/07/19 09:30 Pepcid SLOW IVP 20 mg BID MARLENE Administration Gabapentin 800 mg 03/07/19 09:00 03/07/19 17:07 Neurontin PO Not Given QID MARLENE Sodium Chloride 1,000 mls @ 0 mls/hr 03/05/19 03:34 03/07/19 09:19 Normal Saline 0.9% IV 1,000 mls .Q0M MARLENE Administration As Directed Piperacillin Sod/Tazobactam 100 mls @ 200 mls/hr 03/05/19 06:00 03/07/19 17: 32 Sod 3.375 gm/ Sodium Chloride IVPB 100 mls Q6HR MARLENE Administration Ipratropium Boswell 2 puff 03/07/19 11:00 03/07/19 19:11 Atrovent Hfa INH 2 puff QID-RT MARLENE Administration Lisinopril 40 mg 03/07/19 09:00 03/07/19 13:12 Zestril PO 40 mg DAILY MARLENE Administration Sodium Chloride 10 ml 03/05/19 09:00 03/07/19 09:30 Flush - Normal Saline IVF 10 ml Q12HR MARLENE Administration Sterile Water 1 ml 03/05/19 03:44 03/05/19 06:01 Bacteriostatic Water FS 1 ml PRN PRN Administration RECONSTITUTION - Exam General Appearance: NAD, awake alert Eye: PERRL, anicteric sclera ENT: normocephalic atraumatic, no oropharyngeal lesions Neck: supple, symmetric, no JVD, no thyromegaly Heart: RRR, no gallops, no rubs, normal peripheral pulses Respiratory: CTAB, no rales, no ronchi, normal chest expansion Gastrointestinal: soft, non-tender, non-distended, normal bowel sounds, no palpable masses Extremities: no cyanosis, no clubbing, no edema Skin: normal turgor, no lesions Neurological: cranial nerve grossly intact, no new deficit Musculoskeletal: normal tone, normal strength Psychiatric: normal affect, A&O x 3 Hosp A/P (1) Sepsis Code(s): A41.9 - SEPSIS, UNSPECIFIED ORGANISM Status: Acute Qualifiers: Severe sepsis shock status: with septic shock Plan: Resolved, continue Zosyn another 24h then de-escalate (2) Aspiration pneumonia Code(s): J69.0 - PNEUMONITIS DUE TO INHALATION OF FOOD AND VOMIT Status: Acute Plan: See above, O2 PRN (3) Acute respiratory failure with hypoxia and hypercarbia Code(s): J96.01 - ACUTE RESPIRATORY FAILURE WITH HYPOXIA; J96.02 - ACUTE RESPIRATORY FAILURE WITH HYPERCAPNIA Status: Acute Plan: Resolved (4) Polypharmacy Code(s): Z79.899 - OTHER METER TESTER (CURRENT) DRUG THERAPY Status: Chronic Plan: Outpt resources (5) Tobacco abuse Code(s): Z72.0 - TOBACCO USE Status: Chronic (6) VANESSA (acute kidney injury) Code(s): N17.9 - ACUTE KIDNEY FAILURE, UNSPECIFIED Status: Acute Plan: Resolved - Plan continue antibiotics, PT/OT, clinical social worker, respiratory therapy, out of bed/ ambulate, DVT proph w/SCDs Stable currently BiPAP PRN Continue Zosyn Prednisone for outpt rx Tobacco cessation resources OOB/ambulate Resume Heart Healthy diet Transfer to medical [place] home in am
[2019-03-07] MEDS ORDERED: Mirtazapine 15 MG TAB PO SCH (21:00)
[2019-03-07] MEDS ORDERED: Atorvastatin Calcium 20 MG TAB PO SCH (21:00)
[2019-03-08] MEDS: Piperacillin/Tazobactam 3.375 GM in Sodium Chloride 0.9% 100 ML IVPB SCH (05:58)
[2019-03-08] MEDS ORDERED: Levothyroxine Sodium 112 MCG TAB PO SCH (06:00)
[2019-03-08] MEDS ORDERED: Levothyroxine Sodium 25 MCG TAB PO SCH (06:00)
[2019-03-08] MEDS: Ipratropium Oral Inhaler INH SCH ×2 (06:47→10:47)
[2019-03-08 07:31] VITALS: TEMP 97.7
[2019-03-08] MEDS ORDERED: predniSONE 20 MG TAB PO SCH (08:00)
[2019-03-08] MEDS: Gabapentin 400 MG CAP PO SCH (08:22)
[2019-03-08] MEDS: Acetaminophen/Codeine 30-300mg Tablet PO PRN (08:23)
[2019-03-08] MEDS: Cyclobenzaprine 10 MG TAB PO PRN (08:25)
[2019-03-08] MEDS: DULoxetine 60 MG CAP PO SCH (08:25)
[2019-03-08] MEDS: ALPRAZolam 0.5 MG TAB PO SCH (08:25)
[2019-03-08] MEDS: Lisinopril 20 MG TAB PO SCH (08:26)
[2019-03-08 08:27] VITALS: BP 134/71
[2019-03-08] MEDS: Famotidine/PF 20 mg/2ml Vial SLOW IVP SCH (08:57)
[2019-03-08] MEDS ORDERED: Amlodipine 5 MG TAB PO SCH (09:00)
--- NOTE | 2019-03-08 19:15 | DIS ---
DATE OF ADMISSION: 03/05/2019 DATE OF DISCHARGE: 03/08/2019 DISCHARGE DIAGNOSES: 1. Sepsis with septic shock secondarily to aspiration pneumonia, resolved. 2. Aspiration pneumonia, improved. 3. Acute hypoxic hypercapnic respiratory failure, resolved. 4. Polypharmacy. 5. Tobacco abuse. 6. Acute kidney injury, resolved. CONSULTATIONS: 1. Dr. Godfrey with Pulmonology/Critical Care Service. 2. Dr. Vincent with General Surgery Service. PERTINENT LABORATORY AND X-RAY FINDINGS: Potassium ranged between 3.2 to 3.7. Creatinine ranged between 0.79 to 2.03. AST ranged between 88 to 95. ALT ranged between 27 to 41. Serum ammonia level 32. Troponin I ranged between 0.113 to 0.334. BNP 274. Vitamin B12 level 406. Folate level 11.9. CBC showed a white blood cell count ranging between 12.2 to 14.7, hemoglobin ranged between 10.9 to 12.7. Blood cultures x2 dated 03/04/2019, showed no growth at 48 hours. Urine culture dated 03/04/2019, showed no growth at 36 hours. Influenza A and B antigen 03/04/2019, negative. Portable chest x-ray dated 03/04/2019, showed pleural and parenchymal changes at the right lung base consistent with scarring. Right upper lobe pulmonary nodule, similar in appearance from 2018. CT angiogram of the chest dated 03/04/2019, showed no evidence for pulmonary embolus. Aspiration with fluid and debris within the tracheal airway extending into the bilateral mainstem bronchi, greater in the right lower lobe. Mediastinal and hilar lymphadenopathy noted. CT of the abdomen and pelvis dated 03/04/2019, showed gallbladder distention with minimal gallbladder wall thickening. Mild dilation of the common bile duct without significant intrahepatic biliary ductal dilatation. Abdominal ultrasound dated 03/04/2019, showed gallbladder distention with gallbladder wall thickening and trace amount of pericholecystic fluid. No cholelithiasis noted. Common bile duct 9 mm. Hepatobiliary scan dated 03/05/2019, showed unremarkable scan. 2D transthoracic echocardiogram dated 03/05/2019, showed ejection fraction of 55% to 60%. Mild left atrial enlargement. HOSPITAL COURSE: The patient was initially admitted to the Critical Care Unit, presenting with severe shortness of breath and acute hypoxic hypercapnic respiratory failure in the context of known chronic obstructive pulmonary disease. The patient underwent chest imaging including CT modality showing evidence of right-sided aspiration pneumonia and consolidation. The patient was also noted with metabolic encephalopathy and placed on high-flow nasal cannula oxygen supplementation. The patient was also treated for severe sepsis with septic shock, placed on Levophed infusion and broad-spectrum IV antibiotic therapy. The patient received IV Levaquin, Zosyn, and vancomycin, pending culture results. The patient also received aggressive IV fluid hydration per sepsis protocol and consultation was obtained by the Pulmonology Service. The patient remained on high-flow nasal cannula oxygen support in the first 24 hours, eventually transitioning to nasal cannula with low-flow oxygen. The patient was noted with polypharmacy with multiple sedating and psychotropic medications at the time of admission. The chronic medications were likely contributing factor to the patient's presentation in conjunction with chronic obstructive pulmonary disease. The patient continued to receive IV antibiotic therapy as well as aggressive pulmonary support including IV Solu-Medrol and bronchodilator therapy. The patient clinically stabilized and transitioned to the medical floor, weaning off oxygen support by the time of discharge. The patient received counseling regarding the tobacco cessation as well as strict supervision of her chronic narcotic therapy and sedating medications. I have examined the patient at the time of discharge and discussed followup instructions. The patient overall clinically stable and ready for discharge on 03/08/2019. DISCHARGE MEDICATIONS: 1. Tylenol No. 3 one tablet p.o. q.8 hours p.r.n. pain. 2. Albuterol sulfate 1 to 2 puffs q.4 hours p.r.n. 3. Alprazolam 0.5 mg p.o. t.i.d.. 4. Norvasc 2.5 mg p.o. daily. 5. Lipitor 20 mg p.o. daily. 6. Flexeril 10 mg p.o. t.i.d. p.r.n. 7. Cymbalta 60 mg p.o. b.i.d. 8. Gabapentin 800 mg p.o. t.i.d. 9. Indocin 25 mg p.o. b.i.d. p.r.n. 10. Levothyroxine 137 mcg p.o. daily. 11. Remeron 15 mg p.o. at bedtime. 12. Quinapril 40 mg p.o. daily. 13. Atrovent HFA 2 puffs inhaled q.i.d. p.r.n. 14. Levaquin 750 mg p.o. daily x7 days. 15. Prednisone 20 mg, take two tablets p.o. daily x3 days, followed by 1 tablet p.o. daily x3 days, followed by half a tablet p.o. daily x3 days. FOLLOWUP: The patient may follow up with her primary care provider, Dr. Maurice Colbert, within 7 days of discharge. CONDITION ON DISCHARGE: Stable. ACTIVITY: Ad-rosa maria. DIET: Heart healthy. CODE STATUS: Full. DISPOSITION: Home on 03/08/2019. TIME SPENT: Total time preparing and coordinating discharge, 37 minutes. Job ID: [id number]
== END 2019-03-08 14:01 | disposition hospice, home (50) | DRG 871 ==
LOC: ERS 20:02 → CCU 03-05 00:47 → T4-A 03-07 17:53
PROVIDERS: ADMIT Family Medicine; ATTEND Family Medicine
DX: A41.9 Sepsis, unspecified organism (principal); R65.21 Severe sepsis with septic shock; J69.0 Pneumonitis due to inhalation of food and vomit; I21.A1 Myocardial infarction type 2; G93.41 Metabolic encephalopathy; J96.01 Acute respiratory failure with hypoxia; N17.9 Acute kidney failure, unspecified; F11.20 Opioid dependence, uncomplicated; Z98.890 Other specified postprocedural states; I10 Essential (primary) hypertension; Z79.899 Other long term (current) drug therapy; Z85.118 Personal history of other malignant neoplasm of bronchus and lung; J44.9 Chronic obstructive pulmonary disease, unspecified; F17.210 Nicotine dependence, cigarettes, uncomplicated; F10.10 Alcohol abuse, uncomplicated; E87.6 Hypokalemia; T50.905A Adverse effect of unspecified drugs, medicaments and biological substances, initial encounter
CPT/HCPCS: 36415; 36416; 71045; 71275; 74177; 76705; 78226; 80053; 81003; 81015; 82140; 82553; 82607; 82746; 82805; 83605; 83690; 83880; 84484; 85007; 85025; 85027; 85379; 85610; 85730; 87040; 87086; 87804; 90471; 90686; 90732; 93005; 93306; 94660; 94760; A4353; A9537; C1769; G0008; G0009; J0456; J0696; J1956; J2543; J2920; J2930; J3370; J3475; J3480; J3490; J7512; J7620; Q9967; S0028

== ENCOUNTER 2019-04-01 11:11 | Observation (INO) | payer BC ==
[2019-04-01 11:58] LABS: #Lymphocytes 1.4 thou/uL (1.20-3.40); #Monocytes 1.1 thou/uL (0.11-0.59); #Neutrophils 10.3 thou/uL (1.40-6.50); %Basophils 0.3 % (0.0-1.0); %Eosinophils 0.1 % (0.0-10.0); %Lymphocytes 11.2 % (21.0-51.0); %Monocytes 8.7 % (0.0-10.0); %Neutrophils 79.8 % (42.0-75.0); Mean Corpuscular HGB CONC 33.6 g/dL (32.0-36.0); Mean Corpuscular Hemoglobin 34.6 pg (27.0-31.0); Mean Platelet Volume 7.1 fL (7.4-10.4); Platelet Count 264 thou/uL (130-400); RBC Distribution Width 12.1 % (11.5-14.5); Red Blood Cell (RBC) Count 3.48 mill/uL (4.20-5.40); White Blood Cell (WBC) Count 12.9 thou/uL (4.8-10.8)
--- NOTE | 2019-04-01 12:20 | CT ---
CT HEAD WITHOUT IV CONTRAST COMPARISON: 05/22/2018 HISTORY: Altered mental status and lethargy. Post fall one day ago. TECHNIQUE: Axial CT imaging at 5 mm intervals from vertex through skull base without contrast FINDINGS: There is no evidence of an acute infarction, hemorrhage, mass effect, or midline shift. The ventricul ar system is normal in size, shape, and position. Visualized paranasal sinuses are clear. Osseous structures appear intact.No interval change from prior study. IMPRESSION: 1. No acute intracranial abnormality demonstrated.
[2019-04-01 12:22] LABS: ALT (SGPT) 13 U/L (8-55); AST (SGOT) 22 U/L (5-34); Alkaline Phosphatase 71 U/L (40-110); Anion Gap 16 mmol/L (10-20); BUN (Urea Nitrogen) 20 mg/dL (9.8-20.1); Bilirubin, Total 0.7 mg/dL (0.2-1.2); CK (CPK) 164 U/L (29-168); Calc. Creatinine Clearance 0 mL/min (70-130); Calcium 9.2 mg/dL (7.8-10.44); Carbon Dioxide 32 mmol/L (23-31); Chloride 89 mmol/L (98-107); Estimated GFR-MDRD 52; Globulin 2.9 g/dL (2.4-3.5); Glucose 101 mg/dL (80-115); Potassium 3.6 mmol/L (3.5-5.1); Protein, Total 6.9 g/dL (6.0-8.3); Sodium 133 mmol/L (136-145)
--- NOTE | 2019-04-01 12:56 | RAD ---
EXAM: Chest one view: HISTORY: Injury from a fall lethargy COPD COMPARISON: 03/05/2019 FINDINGS: Cervical anterior fusion changes Minimal increased markings bilaterally, stable. Heart size: Within normal limits. Lungs: Clear of acute process. No evidence for confluent pneumonia, pleural effusion, acute edema, or pneumothorax, or other signifi cant acute process. IMPRESSION: No significant acute intrathoracic disease.
[2019-04-01 13:03] LABS: Bacteria/HPF None Seen HPF (None Seen); Bilirubin Negative (Negative); Blood, Urine Trace (Negative); Clarity Clear (Clear); Glucose, Urine (Dipstick) Normal (Negative); Leukocyte Negative Leu/uL (Negative); Nitrite Negative (Negative); Protein, Urine (Dipstick) 30 mg/dL (Neg-Trace); Squamous Epithelial 0-3 HPF (0-3); Urobilinogen Normal mg/dL (Less than 2); WBC/HPF 0-3 HPF (0-3)
[2019-04-01 13:09] LABS: Benzodiazepine Screen Detected (NotDetected); Medtox Reader # READER 1; Opiate Screen Detected (NotDetected); Tricyclic Screen Detected (NotDetected)
[2019-04-01 13:10] LABS: Amphetamine Not Detected (NotDetected); Barbiturates Screen Not Detected (NotDetected); Cocaine Metabolite Screen Not Detected (NotDetected); Medtox Control Line Valid? VALID (VALID); Methadone Not Detected (NotDetected); Methamphetamine Not Detected (NotDetected); Oxycodone Screen Not Detected (NotDetected); Phencyclidine (PCP) Not Detected (NotDetected); THC/Cannabinoid Screen Not Detected (NotDetected)
--- NOTE | 2019-04-01 13:32 | CT ---
EXAM: CT angiogram of the chest including 3-D rendering: HISTORY: Syncope and hypoxia COMPARISON: 03/04/2019 FINDINGS: There is adequate opacification of the pulmonary arteries. No evidence for aortic aneurysm or dissection. No convincing CT evidence for acute pulmonary embolism. Evidence for postoperative changes and partial right lung resection. Linear and interstitial parenchy mal changes in the left lower lobe possibly representing some atelectasis and/or mild pneumonitis, appearance is improved from the prior study. Small hiatal hernia. No evidence for mediastinal mass or adenopathy. No evidence for pleural or pericardial effusion. The visualized upper abdomen is stable. IMPRESSION: No convincing CT evidence for acute pulmonary embolism. Linear parenchymal changes in the left lower lobe somewhat improved from prior study. No significant new process.
[2019-04-01] MEDS ORDERED: Iopamidol-370 76% 500 ML 1 ML ONE (13:44)
[2019-04-01 13:50] LABS: Acetaminophen Less than 6.0 mcg/mL (10.0-30.0); Alcohol Less than 10 mg/dL (Less than 10); Salicylate Less than 8.0 mg/dL (15.0-30.0)
--- NOTE | 2019-04-01 14:39 | RAD ---
Exam: Left ankle 3 views: HISTORY: Injury from a fall There is some soft tissue swelling of of the ankle. There is some dystrophic appearing calcification or ossification medial to the medial navicular bone. I'm not certain as to the etiology, this could be related to old injury or possibly some other type of heterotopic ossification. No acute fracture o r dislocation. Arthrosis changes of the ankle joint. IMPRESSION: Heterogeneous area of ossification medial to the navicular bone, possibly some type of heterotopic os sification. Arthrosis and degenerative changes of the ankle joint. No acute fracture.
--- NOTE | 2019-04-01 14:52 | RAD ---
EXAM: Left knee 4 views: HISTORY: Injury from a fall COMPARISON: None FINDINGS: Minimal osteoarthrosis and degenerative change of the knee joint. Degenerative changes. No acute fracture or dislocation or other significant acute osseous abnormality. IMPRESSION: No significant acute process.
[2019-04-01] MEDS ORDERED: hydrALAZINE 20 MG/ML VIAL SLOW IVP PRN (16:29)
[2019-04-01] MEDS ORDERED: Cyclobenzaprine 10 MG TAB PO PRN (16:29)
[2019-04-01] MEDS ORDERED: Nicotine 14 MG PATCH TD SCH (17:00)
[2019-04-01] MEDS: Mometasone/Formoterol 120 PUFF INHALER INH SCH (18:36)
[2019-04-01] MEDS: Sodium Chloride 0.9% 1,000 ML IV SCH (18:41)
[2019-04-01] MEDS ORDERED: Atorvastatin Calcium 20 MG TAB PO SCH (21:00)
[2019-04-01] MEDS ORDERED: Mirtazapine 15 MG TAB PO SCH (21:00)
[2019-04-01] MEDS: DULoxetine 60 MG CAP PO SCH (21:36)
[2019-04-01] MEDS: Gabapentin 400 MG CAP PO SCH (21:36)
[2019-04-01] MEDS: Acetaminophen 325 MG TAB PO PRN (23:10)
--- NOTE | 2019-04-01 23:26 | HP ---
PRIMARY CARE PHYSICIAN: Maurice Colbert DO CHIEF COMPLAINT: I just went out. HISTORY OF PRESENT ILLNESS: Ms. Brown is a pleasant 64-year-old female, who has a history of hypertension as well as COPD. She was in her usual state of health until the day before admission. She says she believes she was trying to go to the bathroom. When she apparently went out, she says her son was there and found her lying at the bed side "out". The son got her up and put her into bed and then convinced her to come to the emergency room today. She says she has had a couple of other episodes like this in the past. She relates it to her COPD. She was last seen in our hospital about a month ago, where she was admitted and treated for aspiration pneumonia with septic shock and also was noted to have polypharmacy as well. The patient says that she has reduced the amount of smoking she does. She says she has only smoked 12 cigarettes since her last discharge and says she has stopped drinking altogether. She does admit that she is on medications for chronic pain including Tylenol 3, gabapentin, and cyclobenzaprine, but she does not believe that this is contributing to her problems. She does admit that the dose of her gabapentin had been increased within the last few months. Currently, the patient says she feels okay. She has a little bit of a cough, but it is no more than usual. She denies any fevers, chills. No nausea. No vomiting. She says her appetite has been fairly good and currently does not have any complaints. REVIEW OF SYSTEMS: All systems were reviewed and are negative except for that mentioned in the history of present illness. PAST MEDICAL HISTORY: Significant for chronic obstructive pulmonary disease, hypertension, hypothyroidism, and chronic respiratory failure secondary to COPD, history of previous lung cancer, and opioid dependency. PAST SURGICAL HISTORY: She has had a cervical spine surgery, lumbar spine surgery, as well as a thoracotomy. ALLERGIES: NO KNOWN DRUG ALLERGIES. SOCIAL HISTORY: She is . This is her second . She resides in [place]. She says that she has actually stopped drinking and has reduced her smoking down to just 12 cigarettes in the last month. FAMILY HISTORY: Significant for liver cirrhosis in her father and schizophrenia in her mom. CURRENT MEDICATIONS: She was not able to name them all, but says that they are the same as when she was discharged in the hospital about a month ago and these include; 1. Tylenol #3 every 8 hours. 2. Albuterol sulfate q.4. 3. Alprazolam 0.5 mg t.i.d. 4. Norvasc 2.5 mg daily. 5. Lipitor 20 mg daily. 6. Flexeril 10 mg t.i.d. as needed. 7. Cymbalta 60 mg twice a day. 8. Gabapentin 800 mg t.i.d. 9. Indocin 25 mg as needed. 10. Levothyroxine 135 mcg p.o. daily. 11. Remeron 15 mg p.o. at bedtime. 12. Quinapril 40 mg daily. 13. Albuterol inhaler q.i.d. She was sent home on a prednisone taper. PHYSICAL EXAMINATION: GENERAL: She is alert and oriented. She appears to be in no acute distress. She is well developed and well nourished. VITAL SIGNS: Blood pressure was 124/67, heart rate 87, respiratory rate of 16, and she is afebrile. Temperature was 98.9. HEENT: Pupils are equal, round, and reactive. Extraocular muscles are intact. Her sclerae are anicteric. Throat, mucous membranes are bit dry. There is no erythema, uvula is midline. NECK: No adenopathy. No bruits. LUNGS: Clear to auscultation. There is no wheezing, no rales, no rhonchi. CARDIOVASCULAR: She has a normal S1 and S2. There is no S3 or S4. No murmurs, clicks, or rubs. ABDOMEN: Soft, but obese, mildly distended. She has a ventral abdominal hernia, easily reducible. There is no rebound, no guarding, no organomegaly. EXTREMITIES: There is no clubbing, or cyanosis. No edema. No calf tenderness. NEUROLOGIC: Her cranial nerves are intact. Muscle strength is 5/5 in both her upper and lower extremities. SKIN AND INTEGUMENT: No skin changes. No rash. LABORATORY RESULTS: Her white blood cell count was 12.9, hemoglobin 12, hematocrit is 35.9, and platelet count is 264. Sodium 133, potassium 3.6, chloride is 89, CO2 is 32, BUN of 20, creatinine 1.06, glucose is 101. IMAGING STUDIES: She had a chest x-ray, which was essentially clear. CT angiogram of the chest demonstrated no PE. There was some area of either atelectasis or pneumonitis in the left lower lobe. X-ray of the knee was negative for any fractures. On the ankle, there was some area of hypertrophic calcification in the mid navicular portion and on the EKG, it is sinus rhythm. There is no ST wave changes, the rate was 83. ASSESSMENT: This is a pleasant 64-year-old female, who presented to the emergency room after having an episode of syncope. In discussion with the patient, she has had several episodes like this before, usually it was in relationship to either a chronic obstructive pulmonary disease exacerbation or urinary tract infection in addition to her chronic obstructive pulmonary disease. It is also noted that she is on several sedating medications and I suspect that this likely has an affect especially given the description where she says she was laying on the ground with her eyes open, but was unable to respond. She has had a recent echocardiogram last month, in which her EF was normal at 55% to 60%. and there was no evidence of any significant valvular dysfunction and her EKG is completely normal. She has a body habitus, which would place her at risk for sleep apnea and this was also discussed as this could potentially be an etiology for decreased level of consciousness, so the plan will be to place the patient in observation, monitor her on telemetry. She appears to be mildly volume depleted. We will give her at least a liter of fluids. Reduce her dose of Neurontin from 800 mg down to 400 mg, avoid any benzodiazepines and reassess her in the a.m. 1. Chronic obstructive pulmonary disease. It is unclear whether or not she has had any formal pulmonary function test, but she may benefit from having outpatient PFTs. She is not on a long-acting beta agonist. This can be added as well. Otherwise, we will continue the DuoNeb's and monitor her progress. 2. Hypertension. Her blood pressure appears to be well controlled. We will reconcile and restart her home medications regarding the hypertension and further recommendations to follow. Job ID: [id number]
[2019-04-02 04:53] LABS: #Eosinphils 0.1 thou/uL (0.0-0.7); #Lymphocytes 1.4 thou/uL (1.20-3.40); #Monocytes 1.3 thou/uL (0.11-0.59); #Neutrophils 8.5 thou/uL (1.40-6.50); %Basophils 0.4 % (0.0-1.0); %Eosinophils 0.6 % (0.0-10.0); %Lymphocytes 12.4 % (21.0-51.0); %Monocytes 11.3 % (0.0-10.0); %Neutrophils 75.2 % (42.0-75.0); Hemoglobin 10.9 g/dL (12.0-16.0); Mean Corpuscular HGB CONC 33.5 g/dL (32.0-36.0); Mean Corpuscular Hemoglobin 34.4 pg (27.0-31.0); Mean Platelet Volume 7.1 fL (7.4-10.4); Platelet Count 239 thou/uL (130-400); RBC Distribution Width 11.9 % (11.5-14.5); Red Blood Cell (RBC) Count 3.18 mill/uL (4.20-5.40); White Blood Cell (WBC) Count 11.3 thou/uL (4.8-10.8)
[2019-04-02 05:11] LABS: Anion Gap 14 mmol/L (10-20); BUN (Urea Nitrogen) 14 mg/dL (9.8-20.1); Calc. Creatinine Clearance 116 mL/min (70-130); Calcium 9.2 mg/dL (7.8-10.44); Carbon Dioxide 29 mmol/L (23-31); Chloride 94 mmol/L (98-107); Estimated GFR-MDRD 85; Glucose 83 mg/dL (80-115); Potassium 3.2 mmol/L (3.5-5.1); Sodium 134 mmol/L (136-145)
[2019-04-02] MEDS: Sodium Chloride 0.9% 1,000 ML IV SCH (05:38)
[2019-04-02] MEDS ORDERED: Levothyroxine Sodium 25 MCG TAB PO SCH (06:00)
[2019-04-02] MEDS ORDERED: Levothyroxine Sodium 112 MCG TAB PO SCH (06:00)
[2019-04-02] MEDS: Acetaminophen 325 MG TAB PO PRN (06:05)
[2019-04-02] MEDS: Mometasone/Formoterol 120 PUFF INHALER INH SCH (06:57)
[2019-04-02] MEDS ORDERED: Potassium Chloride 20 MEQ TAB PO SCH (08:15)
[2019-04-02] MEDS ORDERED: Lisinopril 20 MG TAB PO SCH (09:00)
[2019-04-02] MEDS ORDERED: Non-Formulary Item 1 EACH (Levothyroxine Sodium [Levothyroxine Sodium] 137 MCG) PO SCH (09:00)
[2019-04-02] MEDS ORDERED: Amlodipine 5 MG TAB PO SCH (09:00)
[2019-04-02] MEDS ORDERED: Enoxaparin Sodium 40 MG/0.4 ML SYRINGE SC SCH (09:00)
[2019-04-02] MEDS: DULoxetine 60 MG CAP PO SCH (09:39)
[2019-04-02] MEDS: Gabapentin 400 MG CAP PO SCH ×2 (09:39→14:10)
[2019-04-02] MEDS ORDERED: Acetaminophen/Codeine 30-300mg Tablet PO PRN (13:32)
[2019-04-02 15:42] VITALS: BP 119/63; TEMP 98.9
--- NOTE | 2019-04-02 16:23 | PDOC.HOSPP ---
- Subjective Encounter Date: 04/02/19 Encounter Time: 16:19 Subjective: Ms. Brown was seen today in follow-up of altered mental status. She notes some soreness in her ankles and knees. She does not have any new complaints. - Objective Vital Signs & Weight: Vital Signs (12 hours) Temp Pulse Resp BP Pulse Ox 04/02/19 15:19 98.9 F 79 16 119/63 94 L 04/02/19 11:33 97.0 F L 73 18 110/57 L 93 L 04/02/19 07:25 98.4 F 71 16 104/57 L 96 Weight Weight 197 lb 6.4 oz I&O: 04/01/19 04/02/19 04/03/19 06:59 06:59 06:59 Intake Total 1000 720 Balance 1000 720 Result Diagrams: 04/02/19 04:30 04/02/19 04:30 Hospitalist ROS - Medication Medications: Active Medications Generic Name Dose Route Start Last Admin Trade Name Freq PRN Reason Stop Dose Admin Acetaminophen 650 mg 04/01/19 16:29 04/02/19 06:05 Tylenol PO 650 mg Q4H PRN Administration Headache/Fever/Mild Pain (1-3) Acetaminophen/Codeine Phosphate 1 tab 04/02/19 13:32 04/02/19 14:08 Tylenol #3 PO 1 tab Q8H PRN Administration Pain Amlodipine Besylate 2.5 mg 04/02/19 09:00 04/02/19 09:38 Norvasc PO 2.5 mg DAILY MARLENE Administration Atorvastatin Calcium 20 mg 04/01/19 21:00 04/01/19 21:36 Lipitor PO 20 mg HS MARLENE Administration Cyclobenzaprine HCl 5 mg 04/01/19 16:29 04/01/19 18:34 Flexeril PO 5 mg TIDPRN PRN Administration Muscle Spasm Duloxetine HCl 60 mg 04/01/19 21:00 04/02/19 09:39 Cymbalta PO 60 mg BID MARLENE Administration Enoxaparin Sodium 40 mg 04/02/19 09:00 04/02/19 09:39 Lovenox SC 40 mg 0900 MARLENE Administration Gabapentin 400 mg 04/01/19 21:00 04/02/19 14:10 Neurontin PO 400 mg TID MARLENE Administration Sodium Chloride 1,000 mls @ 75 mls/hr 04/01/19 16:30 04/02/19 05:38 Normal Saline 0.9% IV 1,000 mls .[id number] MARLENE Administration Levothyroxine Sodium 112 mcg 04/02/19 06:00 04/02/19 04:08 Synthroid PO 112 mcg 0600 MARLENE Administration Levothyroxine Sodium 25 mcg 04/02/19 06:00 04/02/19 04:08 Synthroid PO 25 mcg 0600 MARLENE Administration Lisinopril 40 mg 04/02/19 09:00 04/02/19 09:39 Zestril PO 40 mg DAILY MARLENE Administration Mirtazapine 15 mg 04/01/19 21:00 04/01/19 21:36 Remeron PO 15 mg HS MARLENE Administration Mometasone Furoate/Formoterol Fumar 1 puff 04/01/19 18:30 04/02/19 06:57 Dulera 100 Mcg/5 Mcg Inhaler INH 1 puff BID-RT MARLENE Administration Nicotine 14 mg 04/01/19 17:00 04/01/19 18:34 Nicoderm Patch TD 14 mg Q24HR MARLENE Administration Sodium Chloride 10 ml 04/02/19 09:00 04/02/19 09:48 Flush - Normal Saline IVF Not Given Q12HR MARLENE - Exam Eye: PERRL Heart: RRR, no murmur, no gallops, no rubs, normal peripheral pulses Respiratory: CTAB, no wheezes, no rales, no ronchi, normal chest expansion, no tachypnea, normal percussion Gastrointestinal: soft, non-tender, non-distended, normal bowel sounds, no palpable masses, no hepatomegaly Extremities: no cyanosis Hosp A/P (1) Metabolic encephalopathy Code(s): G93.41 - METABOLIC ENCEPHALOPATHY Status: Acute (2) COPD (chronic obstructive pulmonary disease) Status: Chronic (3) Chronic back pain Code(s): M54.9 - DORSALGIA, UNSPECIFIED; G89.29 - OTHER CHRONIC PAIN Status: Chronic (4) Hypertension Code(s): I10 - ESSENTIAL (PRIMARY) HYPERTENSION Status: Chronic (5) Hypothyroidism Code(s): E03.9 - HYPOTHYROIDISM, UNSPECIFIED Status: Chronic (6) Polypharmacy Code(s): Z79.899 - OTHER INTERMEDIATE (CURRENT) DRUG THERAPY Status: Chronic - Plan * Metabolic encephalopathy - resolving * Suspect this is due to Polypharmacy, and she may have underlying Sleep apnea * I discussed this with her * Will see if she will qualify for home health with Home PT/OT for the ankle and knee sprain * Stable for discharge home
--- NOTE | 2019-04-03 02:57 | DIS ---
DATE OF ADMISSION: 04/01/2019 DATE OF DISCHARGE: 04/02/2019 PRIMARY CARE PHYSICIAN: Maurice Colbert DO. The patient also sees Dr. Santiago Renteria, pain specialist and his number is [phone]. DISCHARGE DISPOSITION: Home. DISCHARGE DIAGNOSES: 1. Metabolic encephalopathy. 2. Polypharmacy. 3. Chronic back pain. 4. Chronic respiratory failure due to chronic obstructive pulmonary disease. 5. Hypertension. 6. Hypothyroidism. 7. History of previous lung cancer. DISCHARGE MEDICATIONS: 1. Please note that the dose of gabapentin will be decreased to 400 mg q.i.d. 2. Also, we are reducing the dose of Flexeril to 5 mg t.i.d. as needed from 10 mg. 3. She is to continue Tylenol 3 one tablet q.8h as needed. 4. Amlodipine 2.5 mg daily. 5. Lipitor 20 mg daily. 6. Cymbalta 60 mg twice daily. 7. Indocin 25 mg twice daily. 8. Levothyroxine 137 mcg daily. 9. Atrovent 2 puffs q.i.d. 10. Finish her course of Levaquin 750 mg daily. CODE STATUS: DNAR. ALLERGIES: NO KNOWN DRUG ALLERGIES. HOSPITAL COURSE: Ms. Brown is a pleasant 64-year-old female, who was admitted to the hospital after she passed out at home. She was found by her son lying by the side of the bed. She was brought to the emergency room and a CT of the brain was done, which was essentially negative. She also had a CT angiogram of the chest to rule out PE, this was negative. She also had an x-ray of her knees and ankles due to the fall. There was no evidence of any fracture. She is on multiple sedating medications and it is suspected that this could have precipitated the metabolic encephalopathy. The doses of the gabapentin and Flexeril will be reduced. She also apparently had had a problem with alcohol, which she says that she is no longer drinking. She says that her last alcohol drink was back in February when she had her last admission. Given the concern for the polypharmacy, I called her pain specialist, Dr. Santiago Renteria. He was out of the office when I called when I spoke with his nurse and I told her about the recent admissions to the hospital and asked her to make a note in the chart in his office, so that Dr. Renteria would be aware of the recent events. I also suspect that she may have some undiagnosed sleep apnea and I spoke with her on the phone with regard to the medication changes and also with regard to talking with Dr. Maurice Colbert about getting her set up to have an outpatient sleep study. The patient is currently much improved and we will see about getting her home today hopefully with home health for physical therapy and occupational therapy with regard to her ankle and knee sprain. I did obtain permission to talk with the patient's from the patient herself. Job ID: [id number]
== END 2019-04-02 17:49 | disposition home health service (06) ==
LOC: ERS 11:11 → ERHOLD 14:13 → 2SW 17:51
PROVIDERS: ADMIT Internal Medicine; ATTEND Internal Medicine
DX: G93.41 Metabolic encephalopathy (principal); J44.9 Chronic obstructive pulmonary disease, unspecified; J96.10 Chronic respiratory failure, unspecified whether with hypoxia or hypercapnia; I10 Essential (primary) hypertension; E03.9 Hypothyroidism, unspecified; F17.210 Nicotine dependence, cigarettes, uncomplicated; Z79.899 Other long term (current) drug therapy; Z85.118 Personal history of other malignant neoplasm of bronchus and lung; Z66 Do not resuscitate
CPT/HCPCS: 36415; 70450; 71045; 71275; 80048; 80053; 80306; 80307; 81003; 81015; 82550; 83605; 84484; 85025; 85379; 87040; 93005; 96360; 96361; 96372; G0378; J1650; Q9967

== ENCOUNTER 2019-12-05 14:48 | Outpatient (CLI) | payer BC ==
--- NOTE | 2019-12-05 15:59 | CT ---
CT CHEST WITHOUT CONTRAST: Date: 12/05/2019 PROVIDED CLINICAL HISTORY: Personal history of nicotine dependence, low dose screening. FINDINGS: Comparison made with the study dated 12/01/2018. The heart, pericardium, and great vessels are suboptimally evaluated in the absence of IV contrast ma terial. Vascular calcification including coronary calcium is demonstrated. There is no evidence for thoracic lymph node enlargement, with limitations due to lack of IV contrast material. 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 The remaining airway appears patent and of normal caliber. A small tracheal diverticulum is redemonstrated. The lungs are free of significant opacity. No pleural fluid, pleural thickening or pneumothorax apparent. The visualized portions of the upper abdomen demonstrate an unremarkable unenhanced CT appearance. The osseous structures demonstrate no concerning lytic or blastic lesions. IMPRESSION: Lung-RADS 1 - Negative. Continue annual screening. POS: BETH
== END 2019-12-05 14:49 | disposition home or self-care (01) ==
LOC: BICCT 14:48
PROVIDERS: ATTEND Family Medicine
DX: Z12.2 Encounter for screening for malignant neoplasm of respiratory organs (principal); F17.210 Nicotine dependence, cigarettes, uncomplicated
CPT/HCPCS: G0297

== ENCOUNTER 2020-01-09 11:48 | Outpatient (CLI) | payer BC ==
--- NOTE | 2020-01-09 16:17 | MMO ---
Bilateral MAMMO Bilat Screen [facility]. CLINICAL HISTORY: Patient is 64 years old and is seen for screening. The patient has no family history of breast cancer. The patient has no personal history of cancer. VIEWS: The views performed were: bilateral craniocaudal with tomosynthesis and bilateral mediolateral oblique with tomosynthesis. FILMS COMPARED: The present examination has been compared to prior imaging studies performed at [facility] on 04/22/2014, 12/14/2017, 12/18/2018 and 01/22/2019. This study has been interpreted with the assistance of computer-aided detection. MAMMOGRAM FINDINGS: There are scattered fibroglandular densities. Benign calcifications are noted bilaterally. There are no suspicious masses, suspicious calcifications, or new areas of architectural distortion. IMPRESSION: THERE IS NO MAMMOGRAPHIC EVIDENCE OF MALIGNANCY. A ROUTINE FOLLOW-UP MAMMOGRAM IN 1 YEAR IS RECOMMENDED. THE RESULTS OF THIS EXAM WERE SENT TO THE PATIENT. ACR BI-RADS Category 2 - Benign finding MAMMOGRAPHY NOTE: 1. A negative mammogram report should not delay a biopsy if a dominant of clinically suspicious mass is present. 2. Approximately 10% to 15% of breast cancers are not detected by mammography. 3. Adenosis and dense breasts may obscure an underlying neoplasm. Reported by: ANTONIO SIMMONS MD Electonically Signed: [id number]
== END 2020-01-09 11:49 | disposition home or self-care (01) ==
LOC: BICMAMMO 11:48
PROVIDERS: ATTEND Family Medicine
DX: Z12.31 Encounter for screening mammogram for malignant neoplasm of breast (principal)
CPT/HCPCS: 77063; 77067

== ENCOUNTER 2021-03-05 16:09 | Outpatient (CLI) | payer BC | END 2021-03-05 16:10 | disposition home or self-care (01) | LOC: BICCT 16:09 | PROVIDERS: ATTEND Family Medicine | DX: Z12.2 Encounter for screening for malignant neoplasm of respiratory organs (principal); F17.210 Nicotine dependence, cigarettes, uncomplicated | CPT/HCPCS: 71271 ==

== ENCOUNTER 2021-05-28 15:00 | Inpatient (IN) | payer OTHER, BC, MEDICARE ==
[2021-05-28] MEDS ORDERED: cefTRIAXone\\ROCEPHIN 2 GM VIAL ONE (15:45)
[2021-05-28 15:51] LABS: #Eosinphils 0.1 thou/uL (0.0-0.7); #Lymphocytes 1.8 thou/uL (1.20-3.40); #Monocytes 0.6 thou/uL (0.11-0.59); #Neutrophils 2.3 thou/uL (1.40-6.50); %Basophils 0.8 % (0.0-1.0); %Eosinophils 1.1 % (0.0-10.0); %Lymphocytes 37.7 % (21.0-51.0); %Monocytes 12.5 % (0.0-10.0); Mean Corpuscular HGB CONC 32.7 g/dL (32.0-36.0); Mean Corpuscular Hemoglobin 34.8 pg (27.0-31.0); Platelet Count 173 thou/uL (130-400); RBC Distribution Width 11.2 % (11.5-14.5); Red Blood Cell (RBC) Count 3.73 mill/uL (4.20-5.40); White Blood Cell (WBC) Count 4.8 thou/uL (4.8-10.8)
[2021-05-28 16:07] LABS: Bilirubin Negative (Negative); Blood, Urine Negative (Negative); Clarity Clear (Clear); Glucose, Urine (Dipstick) Normal (Negative); Ketone, Urine Negative (Negative); Leukocyte Negative Leu/uL (Negative); Nitrite Negative (Negative); Protein, Urine (Dipstick) Negative (Neg-Trace); Urobilinogen Normal mg/dL (Less than 2); pH, Urine 5.5 (5.0-9.0)
[2021-05-28 16:11] LABS: ALT (SGPT) 43 U/L (8-55); AST (SGOT) 129 U/L (5-34); Acetaminophen Less than 10.0 mcg/mL (10.0-30.0); Albumin 4.1 g/dL (3.4-4.8); Alcohol Less than 10 mg/dL (Less than 10); Alkaline Phosphatase 67 U/L (40-110); Anion Gap 13 mmol/L (10-20); BUN (Urea Nitrogen) 21 mg/dL (9.8-20.1); Bilirubin, Total 0.4 mg/dL (0.2-1.2); Calc. Creatinine Clearance 0 mL/min (70-130); Calcium 9.1 mg/dL (7.8-10.44); Carbon Dioxide 28 mmol/L (23-31); Chloride 96 mmol/L (98-107); Globulin 2.8 g/dL (2.4-3.5); Glucose 89 mg/dL (80-115); Potassium 3.7 mmol/L (3.5-5.1); Protein, Total 6.9 g/dL (5.8-8.1); Salicylate Less than 8.0 mg/dL (15.0-30.0); Sodium 133 mmol/L (136-145)
[2021-05-28 16:15] LABS: Amphetamine Not Detected (NotDetected); Barbiturates Screen Not Detected (NotDetected); Benzodiazepine Screen Not Detected (NotDetected); Cocaine Metabolite Screen Not Detected (NotDetected); Methadone Not Detected (NotDetected); Methamphetamine Not Detected (NotDetected); Opiate Screen Detected (NotDetected); Oxycodone Screen Not Detected (NotDetected); Phencyclidine (PCP) Not Detected (NotDetected); THC/Cannabinoid Screen Not Detected (NotDetected); Tricyclic Screen Detected (NotDetected)
[2021-05-28 16:25] LABS: CK (CPK) 4610 U/L (29-168)
[2021-05-28] MEDS ORDERED: Azithromycin 500 MG VIAL ONE (16:39)
[2021-05-28 17:19] LABS: SARS-CoV-2 NAA Rapid Test DETECTED (NotDetected)
[2021-05-28] MEDS ORDERED: Naloxone HCl 0.4 mg/ml Vial ONE (17:37)
[2021-05-28 19:03] LABS: Troponin I 0.015 ng/mL (< 0.028)
[2021-05-28] MEDS ORDERED: Senokot S 8.6-50 MG TAB PO PRN (19:18)
[2021-05-28] MEDS ORDERED: Bisacodyl 5 MG TAB PO PRN (19:18)
[2021-05-28] MEDS ORDERED: Ondansetron PF 4 MG/2 ML Vial IVP PRN (19:18)
[2021-05-28] MEDS ORDERED: Ondansetron ODT 4 MG TAB PO PRN (19:18)
[2021-05-28] MEDS ORDERED: Naloxone HCl 2 MG, Admixture Fee 1 EACH in Sodium Chloride 0.9% 500 ML IV PRN (20:15)
[2021-05-28 20:31] VITALS: BMI 25.1
[2021-05-28] MEDS: Heparin 5,000 UNITS/ML VIAL SC SCH (20:57)
[2021-05-28] MEDS: Famotidine/PF 20 mg/2ml Vial SLOW IVP SCH (20:57)
[2021-05-28] MEDS: Sodium Chloride 0.9% 1,000 ML IV SCH (20:58)
[2021-05-28] MEDS ORDERED: Vancomycin HCl 1.5 GM in Sodium Chloride 0.9% 250 ML 300 ML IVPB SCH (21:00)
[2021-05-28] MEDS: Famotidine 20 MG TAB PO SCH (21:00)
[2021-05-28] MEDS ORDERED: Vancomycin 1 GM in Premix Bag 1 BAG IVPB SCH (21:00)
[2021-05-28 22:55] LABS: Troponin I 0.012 ng/mL (< 0.028)
[2021-05-28 23:20] LABS: Sodium, Urine 39 mmol/L (Not Available); Urea Nitrogen, Random Urine 395 mg/dl
[2021-05-28] MEDS: Cefepime 2 GM in Sodium Chloride 0.9% 100 ML IVPB SCH (23:59)
[2021-05-29 03:57] LABS: #Eosinphils 0.1 thou/uL (0.0-0.7); #Lymphocytes 1.7 thou/uL (1.20-3.40); #Monocytes 0.5 thou/uL (0.11-0.59); #Neutrophils 2.1 thou/uL (1.40-6.50); %Basophils 0.6 % (0.0-1.0); %Eosinophils 2.6 % (0.0-10.0); %Lymphocytes 37.7 % (21.0-51.0); %Monocytes 11.6 % (0.0-10.0); %Neutrophils 47.6 % (42.0-75.0); Hemoglobin 12.6 g/dL (12.0-16.0); Mean Corpuscular HGB CONC 32.7 g/dL (32.0-36.0); Mean Corpuscular Hemoglobin 35.1 pg (27.0-31.0); Platelet Count 153 thou/uL (130-400); RBC Distribution Width 11.4 % (11.5-14.5); White Blood Cell (WBC) Count 4.4 thou/uL (4.8-10.8)
[2021-05-29 04:07] LABS: Hemoglobin A1c 5.6 % (4.0-6.0)
[2021-05-29 04:24] LABS: Anion Gap 9 mmol/L (10-20); BUN (Urea Nitrogen) 13 mg/dL (9.8-20.1); CK (CPK) 2805 U/L (29-168); Calc. Creatinine Clearance 90 mL/min (70-130); Calcium 7.9 mg/dL (7.8-10.44); Carbon Dioxide 29 mmol/L (23-31); Cardiac Risk 2.8 (Less than 4.5); Chloride 106 mmol/L (98-107); Cholesterol 94 mg/dl (< 200 Desired); Glucose 85 mg/dL (80-115); HDL Cholesterol 34 mg/dL (>60 Neg Risk); LDL Cholesterol, Calculated 51 mg/dL; Magnesium 1.7 mg/dL (1.6-2.6); Potassium 3.8 mmol/L (3.5-5.1); Sodium 140 mmol/L (136-145); Triglycerides 44 mg/dL (Less than 150)
[2021-05-29 04:30] LABS: ALT (SGPT) 36 U/L (8-55); AST (SGOT) 96 U/L (5-34); Albumin 3.2 g/dL (3.4-4.8); Alkaline Phosphatase 55 U/L (40-110); Bilirubin, Direct 0.2 mg/dL (0.1-0.3); Bilirubin, Total 0.2 mg/dL (0.2-1.2); Protein, Total 5.5 g/dL (5.8-8.1)
[2021-05-29] MEDS ORDERED: Albuterol 200 PUFF (6.7GM INHALER) INH PRN (07:30)
[2021-05-29] MEDS: Albuterol 200 PUFF (6.7GM INHALER) INH SCH ×3 (07:30→14:38)
[2021-05-29] MEDS: Heparin 5,000 UNITS/ML VIAL SC SCH ×3 (07:51→21:24)
[2021-05-29] MEDS: Acetaminophen 325 MG TAB PO PRN (07:51)
[2021-05-29] MEDS: Famotidine/PF 20 mg/2ml Vial SLOW IVP SCH (07:51)
[2021-05-29] MEDS: Famotidine 20 MG TAB PO SCH ×2 (11:00→21:26)
[2021-05-29] MEDS: Cefepime 2 GM in Sodium Chloride 0.9% 100 ML IVPB SCH ×2 (11:03→22:50)
[2021-05-29] MEDS: Sodium Chloride 0.9% 1,000 ML IV SCH (17:24)
[2021-05-29] MEDS ORDERED: DULoxetine 60 MG CAP PO SCH (21:00)
[2021-05-29] MEDS ORDERED: Vancomycin HCl 1.25 GM in Sodium Chloride 0.9% 250 ML 250 ML IVPB SCH (21:00)
[2021-05-30] MEDS: Mometasone 100 MCG/Formoterol 5 MCG 120 PUFF INHALER INH SCH ×2 (01:54→05:45)
[2021-05-30] MEDS: Albuterol 200 PUFF (6.7GM INHALER) INH SCH ×3 (01:54→11:01)
[2021-05-30] MEDS: Famotidine/PF 20 mg/2ml Vial SLOW IVP SCH (03:19)
[2021-05-30] MEDS ORDERED: Levothyroxine Sodium 112 MCG TAB PO SCH (06:00)
[2021-05-30] MEDS ORDERED: Levothyroxine Sodium 25 MCG TAB PO SCH (06:00)
[2021-05-30 06:27] LABS: #Lymphocytes 1.5 thou/uL (1.20-3.40); #Monocytes 0.5 thou/uL (0.11-0.59); %Basophils 0.3 % (0.0-1.0); %Eosinophils 0.5 % (0.0-10.0); %Lymphocytes 30.2 % (21.0-51.0); %Monocytes 9.6 % (0.0-10.0); %Neutrophils 59.4 % (42.0-75.0); Hemoglobin 13.3 g/dL (12.0-16.0); Mean Corpuscular Hemoglobin 33.4 pg (27.0-31.0); Mean Platelet Volume 7.2 fL (7.4-10.4); Platelet Count 158 thou/uL (130-400); RBC Distribution Width 11.1 % (11.5-14.5); Red Blood Cell (RBC) Count 3.99 mill/uL (4.20-5.40); White Blood Cell (WBC) Count 5.1 thou/uL (4.8-10.8)
[2021-05-30 06:44] LABS: Anion Gap 13 mmol/L (10-20); BUN (Urea Nitrogen) 7 mg/dL (9.8-20.1); Calc. Creatinine Clearance 96 mL/min (70-130); Calcium 8.7 mg/dL (7.8-10.44); Carbon Dioxide 25 mmol/L (23-31); Chloride 101 mmol/L (98-107); Glucose 96 mg/dL (80-115); Magnesium 1.5 mg/dL (1.6-2.6); Potassium 3.9 mmol/L (3.5-5.1); Sodium 135 mmol/L (136-145)
[2021-05-30] MEDS ORDERED: DULoxetine 60 MG CAP PO SCH (09:00)
[2021-05-30] MEDS ORDERED: Amlodipine 5 MG TAB PO SCH (09:00)
[2021-05-30] MEDS ORDERED: Atorvastatin Calcium 20 MG TAB PO SCH (09:00)
[2021-05-30 09:06] VITALS: TEMP 98.6
[2021-05-30] MEDS: Famotidine 20 MG TAB PO SCH (09:17)
[2021-05-30] MEDS: Heparin 5,000 UNITS/ML VIAL SC SCH (09:17)
[2021-05-30] MEDS: Acetaminophen 325 MG TAB PO PRN (09:18)
[2021-05-30] MEDS: Cefepime 2 GM in Sodium Chloride 0.9% 100 ML IVPB SCH (11:01)
[2021-05-30 12:31] VITALS: BP 148/79
== END 2021-05-30 14:40 | disposition home or self-care (01) | DRG 871 ==
LOC: EEVIPCON 15:00 → ERS 15:00 → CCU 17:39 → T4-B 05-29 17:44
PROVIDERS: ADMIT Family Medicine; ATTEND Internal Medicine
PROC: 8E0ZXY6 Isolation (ICD-10-PCS; principal; 2021-05-28)
PROC: 3E03329 Introduction of Other Anti-infective into Peripheral Vein, Percutaneous Approach (ICD-10-PCS; 2021-05-28)
DX: A41.89 Other specified sepsis (principal); U07.1 COVID-19; Z66 Do not resuscitate; G92.8 Other toxic encephalopathy; J12.82 Pneumonia due to coronavirus disease 2019; R65.21 Severe sepsis with septic shock; C34.11 Malignant neoplasm of upper lobe, right bronchus or lung; N17.9 Acute kidney failure, unspecified; E87.1 Hypo-osmolality and hyponatremia; M62.82 Rhabdomyolysis; G89.29 Other chronic pain; M54.9 Dorsalgia, unspecified; E78.5 Hyperlipidemia, unspecified; J44.9 Chronic obstructive pulmonary disease, unspecified; E03.9 Hypothyroidism, unspecified; T40.2X5A Adverse effect of other opioids, initial encounter; T42.4X5A Adverse effect of benzodiazepines, initial encounter; N18.30 Chronic kidney disease, stage 3 unspecified; D63.1 Anemia in chronic kidney disease; I12.9 Hypertensive chronic kidney disease with stage 1 through stage 4 chronic kidney disease, or unspecified chronic kidney disease; E86.0 Dehydration; B18.2 Chronic viral hepatitis C; Z79.899 Other long term (current) drug therapy; Z79.890 Hormone replacement therapy; Z98.1 Arthrodesis status; Z90.89 Acquired absence of other organs
CPT/HCPCS: 36415; 36416; 51702; 70450; 71045; 76705; 76770; 80048; 80053; 80061; 80076; 80306; 80307; 81003; 82140; 82550; 83036; 83605; 83735; 83874; 83930; 83935; 84145; 84300; 84443; 84484; 84540; 85025; 87040; 87070; 87081; 87086; 87205; 93005; 93306; 96365; 96375; J0456; J0692; J0696; J1644; J1956; J2310; J3370; J3490; J7050; S0028

== ENCOUNTER 2021-06-24 14:07 | Emergency (ER) | payer OTHER, BC ==
[2021-06-24] MEDS ORDERED: Xylocaine 1% w/ Epi 1:100K 10 ML VIAL ONE (14:21)
[2021-06-24] MEDS ORDERED: Morphine 4 MG/ML VIAL ONE (14:48)
[2021-06-24] MEDS ORDERED: Ketorolac Tromethamine 30 MG/ML VIAL ONE (14:48)
== END 2021-06-24 16:00 | disposition home or self-care (01) ==
LOC: ERS 14:07
DX: S06.0X0A Concussion without loss of consciousness, initial encounter (principal); S01.81XA Laceration without foreign body of other part of head, initial encounter; S01.21XA Laceration without foreign body of nose, initial encounter; E78.5 Hyperlipidemia, unspecified; I10 Essential (primary) hypertension; J44.9 Chronic obstructive pulmonary disease, unspecified; F17.210 Nicotine dependence, cigarettes, uncomplicated; Z79.899 Other long term (current) drug therapy; Z79.51 Long term (current) use of inhaled steroids; W01.0XXA Fall on same level from slipping, tripping and stumbling without subsequent striking against object, initial encounter
CPT/HCPCS: 12013; 70450; 70486; 96372; 96374; J1885; J2270

== ENCOUNTER 2021-07-20 07:51 | Emergency (ER) | payer BC, OTHER ==
[2021-07-20 10:36] LABS: #Eosinphils 0.1 thou/uL (0.0-0.7); #Lymphocytes 1.9 thou/uL (1.20-3.40); #Monocytes 0.9 thou/uL (0.11-0.59); #Neutrophils 9.2 thou/uL (1.40-6.50); %Basophils 0.3 % (0.0-1.0); %Eosinophils 0.6 % (0.0-10.0); %Lymphocytes 15.8 % (21.0-51.0); %Neutrophils 76.3 % (42.0-75.0); Hemoglobin 12.9 g/dL (12.0-16.0); Mean Corpuscular Hemoglobin 35.9 pg (27.0-31.0); Mean Platelet Volume 6.7 fL (7.4-10.4); Platelet Count 172 thou/uL (130-400); RBC Distribution Width 11.3 % (11.5-14.5)
[2021-07-20 11:07] LABS: ALT (SGPT) 59 U/L (8-55); AST (SGOT) 210 U/L (5-34); Albumin 3.9 g/dL (3.4-4.8); Alkaline Phosphatase 56 U/L (40-110); Anion Gap 13 mmol/L (10-20); BUN (Urea Nitrogen) 22 mg/dL (9.8-20.1); Bilirubin, Total 0.5 mg/dL (0.2-1.2); Calc. Creatinine Clearance 0 mL/min (70-130); Calcium 9.5 mg/dL (7.8-10.44); Carbon Dioxide 30 mmol/L (23-31); Chloride 96 mmol/L (98-107); Glucose 101 mg/dL (80-115); Potassium 3.7 mmol/L (3.5-5.1); Protein, Total 6.9 g/dL (5.8-8.1); Sodium 135 mmol/L (136-145)
== END 2021-07-20 11:40 | disposition home or self-care (01) ==
LOC: ERS 07:51
DX: S00.11XA Contusion of right eyelid and periocular area, initial encounter (principal); R74.01 Elevation of levels of liver transaminase levels; E78.5 Hyperlipidemia, unspecified; I10 Essential (primary) hypertension; J44.9 Chronic obstructive pulmonary disease, unspecified; F17.210 Nicotine dependence, cigarettes, uncomplicated; Z79.899 Other long term (current) drug therapy; W19.XXXA Unspecified fall, initial encounter
CPT/HCPCS: 36415; 70450; 72125; 80053; 85025; 93005

== ENCOUNTER 2021-10-09 13:34 | Outpatient (CLI) | payer BC, OTHER | END 2021-10-09 13:35 | disposition home or self-care (01) | LOC: LABBT 13:34 | PROVIDERS: ATTEND Neurological Surgery | DX: Z20.822 Contact with and (suspected) exposure to COVID-19 (principal) | CPT/HCPCS: 87811 ==

== ENCOUNTER 2021-10-14 05:41 | Day surgery (SDC) | payer OTHER ==
[2021-10-09 14:40] VITALS: BMI 23.6
[2021-10-14] MEDS ORDERED: Thrombin 5000 UNITS/5 ML VIAL ONE (06:10)
[2021-10-14] MEDS ORDERED: Bupivacaine PF 0.5% 30 ML VIAL ONE (06:10)
[2021-10-14] MEDS ORDERED: EPINEPHrine 1 MG/ML AMP ONE (06:10)
[2021-10-14] MEDS ORDERED: CEFAZOLIN 2 GM VIAL ONE ×2 (06:38→10:38)
[2021-10-14] MEDS ORDERED: Sodium Chloride 0.9% 100 ML ONE ×2 (06:38→10:38)
[2021-10-14] MEDS ORDERED: fentaNYL Citrate/PF 100 MCG/2 ML SYRINGE ONE (06:42)
[2021-10-14] MEDS ORDERED: Dexmedetomidine 200 MCG/2 ML VIAL ONE (06:42)
[2021-10-14] MEDS ORDERED: Midazolam HCl 2 mg/2 ml Vial ONE (06:52)
[2021-10-14] MEDS ORDERED: PROPOFOL 200 MG/20 ML VIAL ONE (07:01)
[2021-10-14] MEDS ORDERED: ePHEDrine 50 MG/ML VIAL ONE (07:01)
[2021-10-14] MEDS ORDERED: Dexamethasone 20 MG/5 ML VIAL ONE (07:01)
[2021-10-14] MEDS ORDERED: Rocuronium Bromide 10 MG/ML (10ML VIAL) ONE (07:01)
[2021-10-14] MEDS ORDERED: Ondansetron PF 4 MG/2 ML Vial ONE (07:01)
[2021-10-14] MEDS ORDERED: Ketorolac Tromethamine 30 MG/ML VIAL ONE (07:01)
[2021-10-14] MEDS ORDERED: Lidocaine 1% MPF 2 ML VIAL ONE (07:01)
[2021-10-14] MEDS ORDERED: NEOSTIGMINE 3 MG/3 ML SYR 3 MG/3 ML SYRINGE ONE (07:01)
[2021-10-14] MEDS ORDERED: Glycopyrrolate 0.2 MG/ML 5 ML SYRINGE ONE (07:01)
[2021-10-14] MEDS ORDERED: Acetaminophen/Codeine 30-300mg Tablet ONE ×2 (10:38→10:45)
== END 2021-10-14 12:20 | disposition home or self-care (01) ==
LOC: SDC 05:41
PROVIDERS: ATTEND Neurological Surgery
PROC: 01NB0ZZ Release Lumbar Nerve, Open Approach (ICD-10-PCS; principal; 2021-10-14)
DX: M48.062 Spinal stenosis, lumbar region with neurogenic claudication (principal); M51.16 Intervertebral disc disorders with radiculopathy, lumbar region; M48.02 Spinal stenosis, cervical region; I10 Essential (primary) hypertension; E78.5 Hyperlipidemia, unspecified; E03.9 Hypothyroidism, unspecified; M10.9 Gout, unspecified; Z87.891 Personal history of nicotine dependence; Z79.890 Hormone replacement therapy; Z79.899 Other long term (current) drug therapy; Z98.1 Arthrodesis status
CPT/HCPCS: 76000; J0171; J0690; J1100; J1885; J2250; J2405; J2704; J3490; S0020

== ENCOUNTER 2022-02-06 10:46 | Inpatient (IN) | payer MEDICARE, MEDICAID ==
[2022-02-06 11:24] LABS: #Lymphocytes 1.1 thou/uL (1.20-3.40); #Monocytes 0.6 thou/uL (0.11-0.59); #Neutrophils 4.2 thou/uL (1.40-6.50); %Basophils 0.8 % (0.0-1.0); %Eosinophils 0.2 % (0.0-10.0); Hemoglobin 13.2 g/dL (12.0-16.0); Mean Corpuscular HGB CONC 33.7 g/dL (32.0-36.0); Mean Corpuscular Hemoglobin 34.4 pg (27.0-31.0); Mean Platelet Volume 7.1 fL (7.4-10.4); Platelet Count 170 10x3/uL (130-400); RBC Distribution Width 11.4 % (11.5-14.5); Red Blood Cell (RBC) Count 3.84 mill/uL (4.20-5.40); White Blood Cell (WBC) Count 5.9 10x3/uL (4.8-10.8)
[2022-02-06 11:45] LABS: ALT (SGPT) 14 U/L (8-55); AST (SGOT) 35 U/L (5-34); Albumin 4.1 g/dL (3.4-4.8); Alkaline Phosphatase 66 U/L (40-110); Anion Gap 13 mmol/L (10-20); BUN (Urea Nitrogen) 15 mg/dL (9.8-20.1); Bilirubin, Total 0.4 mg/dL (0.2-1.2); Calc. Creatinine Clearance 0 mL/min (70-130); Calcium 9.1 mg/dL (7.8-10.44); Carbon Dioxide 30 mmol/L (23-31); Chloride 92 mmol/L (98-107); Estimated GFR 79; Globulin 3.4 g/dL (2.4-3.5); Glucose 90 mg/dL (80-115); Lipase 11 U/L (8-78); Potassium 3.8 mmol/L (3.5-5.1); Protein, Total 7.5 g/dL (5.8-8.1); Sodium 131 mmol/L (136-145)
[2022-02-06] MEDS ORDERED: Dexamethasone 10 MG/ML VIAL ONE (11:57)
[2022-02-06] MEDS ORDERED: Albuterol Sulfate 2.5 mg/0.5 ml Neb ONE (11:58)
[2022-02-06 12:29] LABS: SARS-CoV-2 NAA Rapid Test Not Detected (NotDetected)
[2022-02-06] MEDS ORDERED: Acetaminophen 325 MG TAB PO PRN (15:28)
[2022-02-06] MEDS ORDERED: Senokot S 8.6-50 MG TAB PO PRN (15:28)
[2022-02-06] MEDS ORDERED: Ondansetron ODT 4 MG TAB PO PRN (15:28)
[2022-02-06] MEDS ORDERED: Ondansetron PF 4 MG/2 ML Vial IVP PRN (15:28)
[2022-02-06] MEDS ORDERED: guaiFENesin 200 MG TAB PO PRN (15:33)
[2022-02-06 18:33] VITALS: BMI 24.4
[2022-02-06] MEDS: Mometasone 200 MCG/Formoterol 5 MCG 120 PUFF INHALER INH SCH (18:58)
[2022-02-06] MEDS: methylPREDNISolone Sod Succ 40 MG VIAL IVP SCH (22:40)
[2022-02-06] MEDS: Nicotine 14 MG PATCH TD SCH ×2 (22:40→22:48)
[2022-02-06] MEDS: Enoxaparin Sodium 40 MG/0.4 ML SYRINGE SC SCH (22:40)
[2022-02-06] MEDS: Famotidine 20 MG TAB PO SCH (22:40)
[2022-02-06] MEDS: Doxycycline 100 MG CAP PO SCH (22:43)
[2022-02-07 06:50] LABS: #Lymphocytes 0.6 thou/uL (1.20-3.40); #Monocytes 0.3 thou/uL (0.11-0.59); #Neutrophils 3.3 thou/uL (1.40-6.50); %Basophils 0.3 % (0.0-1.0); %Eosinophils 0.1 % (0.0-10.0); %Lymphocytes 14.9 % (21.0-51.0); %Neutrophils 78.8 % (42.0-75.0); Mean Corpuscular HGB CONC 34.4 g/dL (32.0-36.0); Mean Corpuscular Hemoglobin 34.9 pg (27.0-31.0); Mean Platelet Volume 7.8 fL (7.4-10.4); Platelet Count 165 10x3/uL (130-400); RBC Distribution Width 11.3 % (11.5-14.5); Red Blood Cell (RBC) Count 3.45 mill/uL (4.20-5.40); White Blood Cell (WBC) Count 4.2 10x3/uL (4.8-10.8)
[2022-02-07 07:10] LABS: Anion Gap 13 mmol/L (10-20); BUN (Urea Nitrogen) 17 mg/dL (9.8-20.1); Calc. Creatinine Clearance 91 mL/min (70-130); Calcium 8.9 mg/dL (7.8-10.44); Carbon Dioxide 28 mmol/L (23-31); Chloride 94 mmol/L (98-107); Estimated GFR 94; Glucose 177 mg/dL (80-115); Sodium 131 mmol/L (136-145)
[2022-02-07] MEDS: Doxycycline 100 MG CAP PO SCH ×2 (08:26→21:15)
[2022-02-07] MEDS: methylPREDNISolone Sod Succ 40 MG VIAL IVP SCH ×3 (08:26→21:18)
[2022-02-07] MEDS: Famotidine 20 MG TAB PO SCH ×2 (08:26→21:15)
[2022-02-07] MEDS ORDERED: FLU VACC QS2022-23(65YR UP)/PF 240 MCG/0.7 ML SYRINGE IM ONE (09:00)
[2022-02-07] MEDS: Mometasone 200 MCG/Formoterol 5 MCG 120 PUFF INHALER INH SCH (10:20)
[2022-02-07] MEDS ORDERED: Lisinopril 20 MG TAB PO SCH (10:45)
[2022-02-07] MEDS: Nicotine 14 MG PATCH TD SCH (17:28)
[2022-02-07] MEDS: Mometasone/Formoterol 60 PUFF AER INH SCH (20:01)
[2022-02-07] MEDS: Gabapentin 400 MG CAP PO SCH (21:15)
[2022-02-07] MEDS: DULoxetine 60 MG CAP PO SCH (21:17)
[2022-02-07] MEDS: Enoxaparin Sodium 40 MG/0.4 ML SYRINGE SC SCH (21:18)
[2022-02-08 00:14] VITALS: TEMP 97.7
[2022-02-08] MEDS ORDERED: Levothyroxine Sodium 112 MCG TAB PO SCH (06:00)
[2022-02-08] MEDS ORDERED: Levothyroxine Sodium 25 MCG TAB PO SCH (06:00)
[2022-02-08 06:37] LABS: #Lymphocytes 0.9 thou/uL (1.20-3.40); #Monocytes 0.5 thou/uL (0.11-0.59); #Neutrophils 5.6 thou/uL (1.40-6.50); %Basophils 0.2 % (0.0-1.0); %Eosinophils 0.1 % (0.0-10.0); %Lymphocytes 12.6 % (21.0-51.0); %Monocytes 7.4 % (0.0-10.0); %Neutrophils 79.7 % (42.0-75.0); Mean Corpuscular HGB CONC 33.5 g/dL (32.0-36.0); Mean Corpuscular Hemoglobin 33.9 pg (27.0-31.0); Mean Platelet Volume 7.9 fL (7.4-10.4); Platelet Count 200 10x3/uL (130-400); RBC Distribution Width 11.3 % (11.5-14.5); Red Blood Cell (RBC) Count 3.54 mill/uL (4.20-5.40)
[2022-02-08 06:49] LABS: Anion Gap 13 mmol/L (10-20); BUN (Urea Nitrogen) 18 mg/dL (9.8-20.1); Calc. Creatinine Clearance 95 mL/min (70-130); Calcium 9.1 mg/dL (7.8-10.44); Carbon Dioxide 29 mmol/L (23-31); Chloride 96 mmol/L (98-107); Estimated GFR 97; Glucose 162 mg/dL (80-115); Potassium 3.9 mmol/L (3.5-5.1); Sodium 134 mmol/L (136-145)
[2022-02-08] MEDS ORDERED: Ipratropium Bromide 2.5 ml Neb ONE (07:14)
[2022-02-08] MEDS: Mometasone/Formoterol 60 PUFF AER INH SCH (07:33)
[2022-02-08] MEDS: Gabapentin 400 MG CAP PO SCH (08:08)
[2022-02-08] MEDS: Famotidine 20 MG TAB PO SCH (08:08)
[2022-02-08] MEDS: DULoxetine 60 MG CAP PO SCH (08:08)
[2022-02-08] MEDS: methylPREDNISolone Sod Succ 40 MG VIAL IVP SCH ×2 (08:09→16:20)
[2022-02-08] MEDS: Doxycycline 100 MG CAP PO SCH (08:09)
[2022-02-08] MEDS ORDERED: Amlodipine 5 MG TAB PO SCH (09:00)
[2022-02-08] MEDS ORDERED: Non-Formulary Item 1 EACH (Amlodipine Besylate [Norvasc] 2.5 MG Tablet) PO SCH (09:00)
[2022-02-08] MEDS ORDERED: Atorvastatin Calcium 20 MG TAB PO SCH (09:00)
[2022-02-08] MEDS ORDERED: Non-Formulary Item 1 EACH (Levothyroxine Sodium [Levothyroxine Sodium] 137 MCG Tablet) PO SCH (09:00)
[2022-02-08] MEDS ORDERED: Lisinopril 20 MG TAB PO SCH (09:00)
[2022-02-08 12:30] VITALS: BP 108/58
== END 2022-02-08 17:01 | disposition home or self-care (01) | DRG 189 ==
LOC: ERS 10:46 → T4-A 15:08 → OBSVTOIN 02-08 14:59
PROVIDERS: ADMIT Internal Medicine; ATTEND Internal Medicine
DX: J96.01 Acute respiratory failure with hypoxia (principal); J44.1 Chronic obstructive pulmonary disease with (acute) exacerbation; E87.1 Hypo-osmolality and hyponatremia; Z20.822 Contact with and (suspected) exposure to COVID-19; I10 Essential (primary) hypertension; E78.5 Hyperlipidemia, unspecified; F41.9 Anxiety disorder, unspecified; F32.A Depression, unspecified; E03.9 Hypothyroidism, unspecified; F17.210 Nicotine dependence, cigarettes, uncomplicated; Z71.6 Tobacco abuse counseling; Z28.21 Immunization not carried out because of patient refusal; Z79.899 Other long term (current) drug therapy
CPT/HCPCS: 36415; 71045; 80048; 80053; 83605; 83690; 84484; 85025; 87040; 87804; 93005; 94640; 94760; 96372; 96375; 96376; G0378; J1100; J1650; J1956; J2920; J7611; J7620; U0002; U0003; U0005

== ENCOUNTER 2022-09-07 12:53 | Inpatient (IN) | payer MEDICARE, MEDICAID ==
[~2022-09-07 12:53] MED LIST changes: -Iopamidol-370 76% 500 ML 1 ML ONE; +Iopamidol-370 76% 500 ML MDV (1 ML CHARGE) ONE
[2022-09-07] MEDS ORDERED: Ipratropium/Albuterol 3 ML NEB ONE ×2 (13:33→14:50)
[2022-09-07] MEDS ORDERED: methylPREDNISolone Sod Succ/PF 125 MG/2 ML VIAL ONE (13:33)
[2022-09-07 13:55] LABS: Actual Bicarbonate (HCO3v) 25.5 mEq/L (22-28); Base Excess 0.2 mEq/L (-2.0 to +3.0); Calcium, Ionized (venous) 0.96 mmol/L (1.16-1.32); Chloride (VBG) 102 mmol/L (98-106); Hematocrit-VBG 43 % (36.0-47.0); Hemoglobin (Hb) 14.6 g/dL (11.7-16.1); Sodium 126.2 mmol/L (133-146); pH (venous) 7.383 (7.32-7.43)
[2022-09-07 14:05] LABS: #Basophils 0.1 thou/uL (0.0-0.2); #Monocytes 0.7 thou/uL (0.11-0.59); #Neutrophils 10.1 thou/uL (1.40-6.50); %Basophils 0.4 % (0.0-1.0); %Lymphocytes 11.8 % (21.0-51.0); %Monocytes 5.9 % (0.0-10.0); %Neutrophils 81.4 % (42.0-75.0); Hemoglobin 13.4 g/dL (12.0-16.0); Mean Corpuscular HGB CONC 32.6 g/dL (32.0-36.0); Mean Corpuscular Hemoglobin 33.5 pg (27.0-31.0); Mean Corpuscular Volume 102.8 fl (78.0-98.0); Mean Platelet Volume 10.5 fL (7.4-10.4); Platelet Count 215 10x3/uL (130-400); RBC Distribution Width 13.1 % (11.5-14.5); White Blood Cell (WBC) Count 12.3 10x3/uL (4.8-10.8)
[2022-09-07 14:30] LABS: ALT (SGPT) 17 U/L (8-55); AST (SGOT) 35 U/L (5-34); Albumin 4.3 g/dL (3.4-4.8); Alkaline Phosphatase 70 U/L (40-110); Anion Gap 14 mmol/L (10-20); BUN (Urea Nitrogen) 16 mg/dL (9.8-20.1); Bilirubin, Total 0.5 mg/dL (0.2-1.2); Calc. Creatinine Clearance 0 mL/min (70-130); Calcium 9.1 mg/dL (7.8-10.44); Carbon Dioxide 29 mmol/L (23-31); Chloride 102 mmol/L (98-107); Estimated GFR 84; Globulin 2.9 g/dL (2.4-3.5); Glucose 114 mg/dL (80-115); Potassium 4.2 mmol/L (3.5-5.1); Protein, Total 7.2 g/dL (5.8-8.1); Sodium 141 mmol/L (136-145)
[2022-09-07 14:49] LABS: CKMB 23.1 ng/mL (0-6.6)
[2022-09-07] MEDS ORDERED: cefTRIAXone (ROCEPHIN) 1 GM VIAL ONE (14:50)
[2022-09-07] MEDS ORDERED: Azithromycin 500 MG VIAL ONE (14:51)
[2022-09-07] MEDS ORDERED: Aspirin Chewable 81 MG TAB ONE (15:31)
[2022-09-07] MEDS ORDERED: Ondansetron PF 4 MG/2 ML Vial IVP PRN (16:30)
[2022-09-07] MEDS ORDERED: Ipratropium/Albuterol 3 ML NEB NEB PRN (16:30)
[2022-09-07] MEDS ORDERED: Acetaminophen 325 MG TAB PO PRN (16:30)
[2022-09-07] MEDS ORDERED: HYDROcodone/Acetaminophen 5/325 mg Tablet PO PRN (16:30)
[2022-09-07] MEDS ORDERED: methylPREDNISolone Sod Succ 40 MG VIAL ONE (17:22)
[2022-09-07] MEDS: Nicotine 21 MG PATCH TD SCH (17:25)
[2022-09-07] MEDS: methylPREDNISolone Sod Succ 40 MG VIAL IVP SCH (17:28)
[2022-09-07 17:45] LABS: Troponin I 0.027 ng/mL (< 0.028)
[2022-09-07] MEDS: Ipratropium/Albuterol 3 ML NEB NEB SCH (19:00)
[2022-09-07 20:09] LABS: Troponin I 0.022 ng/mL (< 0.028)
[2022-09-08] MEDS: Ipratropium/Albuterol 3 ML NEB NEB SCH ×4 (00:33→18:25)
[2022-09-08] MEDS: methylPREDNISolone Sod Succ 40 MG VIAL IVP SCH ×4 (01:50→17:21)
[2022-09-08 04:57] LABS: #Monocytes 0.1 thou/uL (0.11-0.59); #Neutrophils 7.6 thou/uL (1.40-6.50); %Basophils 0.1 % (0.0-1.0); %Lymphocytes 9.7 % (21.0-51.0); %Monocytes 1.4 % (0.0-10.0); %Neutrophils 87.9 % (42.0-75.0); Hemoglobin 13.1 g/dL (12.0-16.0); Mean Corpuscular HGB CONC 32.8 g/dL (32.0-36.0); Mean Corpuscular Hemoglobin 33.2 pg (27.0-31.0); Mean Corpuscular Volume 101.3 fl (78.0-98.0); Mean Platelet Volume 10.3 fL (7.4-10.4); Platelet Count 190 10x3/uL (130-400); RBC Distribution Width 13.2 % (11.5-14.5); Red Blood Cell (RBC) Count 3.95 mill/uL (4.20-5.40); White Blood Cell (WBC) Count 8.7 10x3/uL (4.8-10.8)
[2022-09-08 05:32] LABS: Anion Gap 13 mmol/L (10-20); BUN (Urea Nitrogen) 15 mg/dL (9.8-20.1); Calc. Creatinine Clearance 0 mL/min (70-130); Calcium 8.8 mg/dL (7.8-10.44); Carbon Dioxide 27 mmol/L (23-31); Chloride 101 mmol/L (98-107); Estimated GFR 91; Glucose 173 mg/dL (80-115); Sodium 137 mmol/L (136-145)
[2022-09-08] MEDS: HYDROcodone/Acetaminophen 5/325 mg Tablet PO PRN ×2 (09:10→21:53)
[2022-09-08] MEDS ORDERED: Azithromycin 500 MG in Sodium Chloride 0.9% 250 ML 250 ML IVPB SCH (15:00)
[2022-09-08] MEDS ORDERED: cefTRIAXone\\ROCEPHIN 1 GM in Sodium Chloride 0.9% 100 ML IVPB SCH (15:00)
[2022-09-08] MEDS: Nicotine 21 MG PATCH TD SCH (17:22)
[2022-09-08] MEDS: hydrALAZINE 25 MG TAB PO SCH (20:40)
[2022-09-08] MEDS: clonazePAM 0.5 MG TAB PO SCH (20:40)
[2022-09-09] MEDS: methylPREDNISolone Sod Succ 40 MG VIAL IVP SCH ×2 (00:05→05:49)
[2022-09-09] MEDS: Ipratropium/Albuterol 3 ML NEB NEB SCH ×2 (00:30→07:04)
[2022-09-09 05:39] LABS: #Monocytes 0.4 thou/uL (0.11-0.59); %Basophils 0.1 % (0.0-1.0); %Lymphocytes 6.5 % (21.0-51.0); %Monocytes 3.7 % (0.0-10.0); Hemoglobin 12.3 g/dL (12.0-16.0); Mean Corpuscular HGB CONC 32.5 g/dL (32.0-36.0); Mean Corpuscular Hemoglobin 32.9 pg (27.0-31.0); Mean Corpuscular Volume 101.1 fl (78.0-98.0); Mean Platelet Volume 10.2 fL (7.4-10.4); Platelet Count 199 10x3/uL (130-400); RBC Distribution Width 13.6 % (11.5-14.5); Red Blood Cell (RBC) Count 3.74 mill/uL (4.20-5.40); White Blood Cell (WBC) Count 11.2 10x3/uL (4.8-10.8)
[2022-09-09] MEDS: HYDROcodone/Acetaminophen 5/325 mg Tablet PO PRN ×2 (05:48→10:16)
[2022-09-09 06:03] LABS: Anion Gap 15 mmol/L (10-20); BUN (Urea Nitrogen) 17 mg/dL (9.8-20.1); CRP (Inflammatory) 1.42 mg/dL (= or < 0.5); Calc. Creatinine Clearance 95 mL/min (70-130); Carbon Dioxide 25 mmol/L (23-31); Chloride 103 mmol/L (98-107); Estimated GFR 84; Glucose 183 mg/dL (80-115); Potassium 3.8 mmol/L (3.5-5.1); Sodium 139 mmol/L (136-145)
[2022-09-09] MEDS: hydrALAZINE 25 MG TAB PO SCH (08:11)
[2022-09-09] MEDS: clonazePAM 0.5 MG TAB PO SCH (08:11)
[2022-09-09 08:36] VITALS: BP 152/73; TEMP 98.4
== END 2022-09-09 11:24 | disposition home health service (06) | DRG 189 ==
LOC: ERS 12:53 → ERHOLD 15:50 → 2SW 21:36 → OBSVTOIN 09-08 11:14
PROVIDERS: ADMIT Internal Medicine; ATTEND Hospitalist
PROC: 4A043R1 Measurement of Venous Saturation, Peripheral, Percutaneous Approach (ICD-10-PCS; principal; 2022-09-08)
DX: J96.01 Acute respiratory failure with hypoxia (principal); J44.1 Chronic obstructive pulmonary disease with (acute) exacerbation; C34.92 Malignant neoplasm of unspecified part of left bronchus or lung; E78.5 Hyperlipidemia, unspecified; I10 Essential (primary) hypertension; G89.29 Other chronic pain; J96.02 Acute respiratory failure with hypercapnia; E03.9 Hypothyroidism, unspecified; Z79.899 Other long term (current) drug therapy; Z71.6 Tobacco abuse counseling; Z98.1 Arthrodesis status; Z90.89 Acquired absence of other organs
CPT/HCPCS: 36415; 70450; 71045; 71275; 80048; 80053; 82553; 82805; 83880; 84484; 85025; 86140; 93005; 94640; 96365; 96367; 96372; 96375; 96376; G0378; J0456; J0696; J1650; J2920; J2930; J3490; J7050; J7620; Q9967

== ENCOUNTER 2022-09-29 18:29 | Emergency (ER) | payer MEDICARE, MEDICAID ==
[2022-09-29 19:32] LABS: Hematocrit 37.2 % (36.0-47.0); Hemoglobin 12.2 g/dL (12.0-16.0); Mean Corpuscular HGB CONC 32.8 g/dL (32.0-36.0); Mean Corpuscular Hemoglobin 33.2 pg (27.0-31.0); Mean Corpuscular Volume 101.4 fl (78.0-98.0); Mean Platelet Volume 9.7 fL (7.4-10.4); Platelet Count 227 10x3/uL (130-400); RBC Distribution Width 14.3 % (11.5-14.5); Red Blood Cell (RBC) Count 3.67 mill/uL (4.20-5.40); White Blood Cell (WBC) Count 5.7 10x3/uL (4.8-10.8)
[2022-09-29 19:36] LABS: Delete Auto Diff?? YES; Manual Diff?? YES
[2022-09-29 19:59] LABS: Troponin I Less than 0.010 ng/mL (< 0.028)
[2022-09-29 20:02] LABS: ALT (SGPT) 10 U/L (8-55); AST (SGOT) 21 U/L (5-34); Albumin 3.9 g/dL (3.4-4.8); Alkaline Phosphatase 65 U/L (40-110); Anion Gap 12 mmol/L (10-20); BUN (Urea Nitrogen) 12 mg/dL (9.8-20.1); Band 3 % (5-11); Bilirubin, Total 0.5 mg/dL (0.2-1.2); Calc. Creatinine Clearance 0 mL/min (70-130); Carbon Dioxide 26 mmol/L (23-31); CellaVision Operator ID LAB.KB; Chloride 106 mmol/L (98-107); Eosinophils 1 % (0-10); Estimated GFR 76; Globulin 3.1 g/dL (2.4-3.5); Glucose 119 mg/dL (80-115); Lymphocytes 29 % (21-51); Macrocytosis SLIGHT = 6-15 cells HPF (0-5); Magnesium 1.8 mg/dL (1.6-2.6); Monocytes 4 % (0-10); Neutrophil 60 % (42-75); Platelet Adequacy Comment Platelets Normal; Polychromasia SLIGHT = 2-3 cells HPF (0-2); Potassium 3.8 mmol/L (3.5-5.1); Sodium 140 mmol/L (136-145); Total Cell Count 100
[2022-09-29] MEDS ORDERED: Ketorolac Tromethamine 30 MG/ML VIAL ONE (22:04)
[2022-09-29] MEDS ORDERED: Dexameth. Sod Phosp. 10 MG/ML (CHEMO USE ONLY) ONE (22:04)
== END 2022-09-29 22:29 | disposition home or self-care (01) ==
LOC: ERS 18:29
DX: M10.9 Gout, unspecified (principal); R60.9 Edema, unspecified; E78.5 Hyperlipidemia, unspecified; I10 Essential (primary) hypertension; J44.9 Chronic obstructive pulmonary disease, unspecified
CPT/HCPCS: 71045; 80053; 83735; 83880; 84484; 85025; 93005; 93970; 96372; J1100; J1885

== ENCOUNTER 2022-10-20 14:13 | Outpatient (CLI) | payer MEDICARE, MEDICAID | END 2022-10-20 14:14 | disposition home or self-care (01) | LOC: BICCT 14:13 | PROVIDERS: ATTEND Internal Medicine | DX: R41.3 Other amnesia (principal); Z86.59 Personal history of other mental and behavioral disorders | CPT/HCPCS: 70450 ==

== ENCOUNTER 2022-11-09 11:33 | Outpatient (CLI) | payer MEDICARE, MEDICAID | END 2022-11-09 11:34 | disposition home or self-care (01) | LOC: BICRAD 11:33 | PROVIDERS: ATTEND Internal Medicine | DX: M54.2 Cervicalgia (principal); M54.50 Low back pain, unspecified; M47.816 Spondylosis without myelopathy or radiculopathy, lumbar region; Z98.890 Other specified postprocedural states | CPT/HCPCS: 72040; 72100 ==

== ENCOUNTER 2023-05-07 07:23 | Emergency (ER) | payer MEDICARE, MEDICAID ==
[2023-05-07 08:37] LABS: #Basophils 0.07 10x3/uL (0.0-0.2); %Basophils 0.7 % (0.0-1.0); %Eosinophils 1.2 % (0.0-10.0); %Lymphocytes 16.2 % (21.0-51.0); %Neutrophils 74.6 % (42.0-75.0); Hematocrit 43.4 % (36.0-47.0); Hemoglobin 14.6 g/dL (12.0-16.0); Mean Corpuscular HGB CONC 33.6 g/dL (32.0-36.0); Mean Corpuscular Hemoglobin 34.6 pg (27.0-31.0); Mean Corpuscular Volume 102.8 fL (78.0-98.0); Mean Platelet Volume 9.4 fL (7.4-10.4); Platelet Count 243 10x3/uL (130-400); RBC Distribution Width 13.4 % (11.5-14.5); Red Blood Cell (RBC) Count 4.22 mill/uL (4.20-5.40)
[2023-05-07] MEDS ORDERED: Morphine 4 MG/ML VIAL ONE (08:38)
[2023-05-07] MEDS ORDERED: Ondansetron PF 4 MG/2 ML Vial ONE (08:38)
[2023-05-07 08:44] LABS: Bacteria/HPF None Seen HPF (None Seen); Bilirubin Negative (Negative); Blood, Urine Negative (Negative); CAUTI Indications for Culture Dysuria,urgency,freq; Clarity Clear (Clear); Glucose, Urine (Dipstick) Normal (Negative); Ketone, Urine Negative (Negative); Leukocyte Negative Leu/uL (Negative); Nitrite Negative (Negative); Protein, Urine (Dipstick) Negative (Neg-Trace); RBC/HPF 0-3 HPF (0-3); Specific Gravity, Urine 1.012 (1.002-1.036); Squamous Epithelial 0-3 HPF (0-3); Urobilinogen Normal mg/dL (Less than 2); WBC/HPF 0-3 HPF (0-3)
[2023-05-07 08:46] LABS: Urine Culture Reflex No No
[2023-05-07 08:52] LABS: ALT (SGPT) 22 U/L (8-55); AST (SGOT) 34 U/L (5-34); Albumin 4.6 g/dL (3.4-4.8); Alkaline Phosphatase 79 U/L (40-110); Anion Gap 13 mmol/L (10-20); BUN (Urea Nitrogen) 14 mg/dL (9.8-20.1); Bilirubin, Total 0.4 mg/dL (0.2-1.2); Calc. Creatinine Clearance 0 mL/min (70-130); Carbon Dioxide 27 mmol/L (23-31); Chloride 102 mmol/L (98-107); Estimated GFR 62; Globulin 3.5 g/dL (2.4-3.5); Glucose 121 mg/dL (80-115); Potassium 4.6 mmol/L (3.5-5.1); Protein, Total 8.1 g/dL (5.8-8.1); Sodium 137 mmol/L (136-145)
[2023-05-07 08:56] LABS: Troponin I 0.014 ng/mL (< 0.028)
[2023-05-07] MEDS ORDERED: Iopamidol-370 76% 500 ML MDV (1 ML CHARGE) ONE (11:17)
== END 2023-05-07 11:56 | disposition home or self-care (01) ==
LOC: ERS 07:23
DX: S22.41XA Multiple fractures of ribs, right side, initial encounter for closed fracture (principal); E78.5 Hyperlipidemia, unspecified; I10 Essential (primary) hypertension; J44.9 Chronic obstructive pulmonary disease, unspecified; E03.9 Hypothyroidism, unspecified; F17.210 Nicotine dependence, cigarettes, uncomplicated; W01.190A Fall on same level from slipping, tripping and stumbling with subsequent striking against furniture, initial encounter; Z79.899 Other long term (current) drug therapy
CPT/HCPCS: 36415; 71045; 74177; 80053; 81001; 84484; 85025; 93005; 96374; 96375; J2270; J2405; Q9967

== ENCOUNTER 2023-06-29 12:59 | Inpatient (IN) | payer MEDICAID, MEDICARE, SELFPAY ==
[2023-06-29] MEDS ORDERED: Magnesium 2 GM/50 ML BAG (IN WATER) ONE (13:45)
[2023-06-29] MEDS ORDERED: Ipratropium/Albuterol 3 ML NEB ONE (13:46)
[2023-06-29] MEDS ORDERED: predniSONE 20 MG TAB ONE (13:50)
[2023-06-29 13:57] LABS: #Basophils 0.03 10x3/uL (0.0-0.2); %Basophils 0.4 % (0.0-1.0); %Monocytes 9.1 % (0.0-10.0); %Neutrophils 64.2 % (42.0-75.0); Hematocrit 37.5 % (36.0-47.0); Hemoglobin 11.8 g/dL (12.0-16.0); Mean Corpuscular HGB CONC 31.5 g/dL (32.0-36.0); Mean Corpuscular Hemoglobin 33.8 pg (27.0-31.0); Mean Corpuscular Volume 107.4 fL (78.0-98.0); Mean Platelet Volume 9.8 fL (7.4-10.4); Platelet Count 212 10x3/uL (130-400); RBC Distribution Width 13.9 % (11.5-14.5); Red Blood Cell (RBC) Count 3.49 mill/uL (4.20-5.40)
[2023-06-29 14:15] LABS: ALT (SGPT) 9 U/L (8-55); AST (SGOT) 27 U/L (5-34); Albumin 3.5 g/dL (3.4-4.8); Alkaline Phosphatase 64 U/L (40-110); Anion Gap 12 mmol/L (10-20); BUN (Urea Nitrogen) 9 mg/dL (9.8-20.1); Bilirubin, Total 0.7 mg/dL (0.2-1.2); Calc. Creatinine Clearance 0 mL/min (70-130); Calcium 9.1 mg/dL (7.8-10.44); Carbon Dioxide 27 mmol/L (23-31); Chloride 104 mmol/L (98-107); Estimated GFR 80; Globulin 3.1 g/dL (2.4-3.5); Glucose 89 mg/dL (80-115); Potassium 4.1 mmol/L (3.5-5.1); Protein, Total 6.6 g/dL (5.8-8.1); Sodium 139 mmol/L (136-145)
[2023-06-29 14:17] LABS: Troponin I Less than 0.010 ng/mL (< 0.028)
[2023-06-29] MEDS ORDERED: Furosemide 40 MG (4 mL) VIAL ONE (15:48)
[2023-06-29] MEDS ORDERED: Ipratropium/Albuterol 3 ML NEB NEB PRN (16:11)
[2023-06-29 18:07] VITALS: BMI 27.8
[2023-06-29] MEDS: Mometasone 100 MCG/Formoterol 5 MCG 120 PUFF INHALER INH SCH (19:29)
[2023-06-29] MEDS: Famotidine 20 MG TAB PO SCH (20:40)
[2023-06-29] MEDS: LevoFLOXacin 500 mg/D5W 500 MG in Premix 1 BAG IVPB SCH (20:40)
[2023-06-30 04:25] LABS: #Basophils Less than 0.03 10x3/uL (0.0-0.2); #Eosinphils Less than 0.03 10x3/uL (0.0-0.7); %Basophils 0.2 % (0.0-1.0); %Lymphocytes 17.7 % (21.0-51.0); %Monocytes 6.1 % (0.0-10.0); %Neutrophils 75.6 % (42.0-75.0); Hematocrit 38.4 % (36.0-47.0); Hemoglobin 12.7 g/dL (12.0-16.0); Mean Corpuscular HGB CONC 33.1 g/dL (32.0-36.0); Mean Corpuscular Hemoglobin 33.6 pg (27.0-31.0); Mean Corpuscular Volume 101.6 fL (78.0-98.0); Platelet Count 208 10x3/uL (130-400); RBC Distribution Width 13.6 % (11.5-14.5); Red Blood Cell (RBC) Count 3.78 mill/uL (4.20-5.40)
[2023-06-30 05:13] LABS: Anion Gap 13 mmol/L (10-20); BUN (Urea Nitrogen) 13 mg/dL (9.8-20.1); Calc. Creatinine Clearance 90 mL/min (70-130); Calcium 9.2 mg/dL (7.8-10.44); Carbon Dioxide 27 mmol/L (23-31); Chloride 102 mmol/L (98-107); Estimated GFR 81; Glucose 140 mg/dL (80-115); Potassium 4.4 mmol/L (3.5-5.1); Sodium 138 mmol/L (136-145)
[2023-06-30] MEDS: Furosemide 20 MG (2 mL) VIAL SLOW IVP SCH (06:32)
[2023-06-30] MEDS ORDERED: Non-Formulary Item 1 EACH (Acetaminophen With Codeine [Acetaminophen-Cod #4 Tablet] 1 EAC PO PRN (08:28)
[2023-06-30] MEDS ORDERED: Allopurinol 100 MG TAB PO SCH (09:00)
[2023-06-30] MEDS ORDERED: Non-Formulary Item 1 EACH (Levothyroxine Sodium [Levothyroxine Sodium] 137 MCG Tablet) PO SCH (09:00)
[2023-06-30] MEDS ORDERED: Non-Formulary Item 1 EACH (Buspirone Hcl [Buspar] 15 MG Tab) PO SCH (09:00)
[2023-06-30] MEDS ORDERED: clonazePAM 1 MG TAB PO SCH (09:00)
[2023-06-30] MEDS: Enoxaparin 40 MG (0.4 mL) SYRINGE SC SCH (09:40)
[2023-06-30] MEDS: Atorvastatin Calcium 20 MG TAB PO SCH (09:41)
[2023-06-30] MEDS: predniSONE 20 MG TAB PO SCH (09:41)
[2023-06-30] MEDS: clonazePAM 1 MG TAB PO SCH ×2 (09:46→21:22)
[2023-06-30] MEDS: Gabapentin 400 MG CAP PO SCH (09:47)
[2023-06-30] MEDS: busPIRone HCl 5 MG TAB PO SCH (09:47)
[2023-06-30] MEDS: Allopurinol 100 MG TAB PO SCH (09:47)
[2023-06-30] MEDS: Acetaminophen/Codeine 30-300mg Tablet PO PRN (09:48)
[2023-06-30] MEDS: DULoxetine 60 MG CAP PO SCH (09:48)
[2023-06-30] MEDS: Acetaminophen 325 MG TAB PO PRN (13:49)
[2023-06-30] MEDS ORDERED: LevoFLOXacin 500 mg/D5W 500 MG in Premix 1 BAG IVPB SCH (18:00)
[2023-06-30] MEDS: Mirtazapine 15 MG TAB PO SCH (21:21)
[2023-07-01 05:44] LABS: #Basophils Less than 0.03 10x3/uL (0.0-0.2); #Eosinphils Less than 0.03 10x3/uL (0.0-0.7); %Basophils 0.1 % (0.0-1.0); %Lymphocytes 22.1 % (21.0-51.0); %Neutrophils 68.4 % (42.0-75.0); Hematocrit 40.8 % (36.0-47.0); Hemoglobin 13.5 g/dL (12.0-16.0); Mean Corpuscular HGB CONC 33.1 g/dL (32.0-36.0); Mean Corpuscular Hemoglobin 33.5 pg (27.0-31.0); Mean Corpuscular Volume 101.2 fL (78.0-98.0); Mean Platelet Volume 10.3 fL (7.4-10.4); Platelet Count 255 10x3/uL (130-400); RBC Distribution Width 13.6 % (11.5-14.5); Red Blood Cell (RBC) Count 4.03 mill/uL (4.20-5.40)
[2023-07-01 06:01] LABS: Anion Gap 11 mmol/L (10-20); BUN (Urea Nitrogen) 17 mg/dL (9.8-20.1); Calc. Creatinine Clearance 81 mL/min (70-130); Carbon Dioxide 35 mmol/L (23-31); Chloride 99 mmol/L (98-107); Estimated GFR 71; Glucose 110 mg/dL (80-115); Potassium 3.6 mmol/L (3.5-5.1); Sodium 141 mmol/L (136-145)
[2023-07-01] MEDS: Levothyroxine 150 MCG TAB PO SCH (07:28)
[2023-07-01] MEDS: Potassium Chloride 20 MEQ TAB PO SCH (09:44)
[2023-07-01] MEDS: acetaZOLAMIDE Sodium 500 MG in Sodium Chloride 0.9% 50 ML IVPB SCH (11:28)
[2023-07-01 12:21] VITALS: BP 159/94; TEMP 98.8
[2023-07-02] MEDS ORDERED: Lisinopril 10 MG TAB PO SCH (09:00)
[2023-07-02] MEDS ORDERED: Furosemide 20 MG TAB PO SCH (09:00)
== END 2023-07-01 14:45 | disposition home health service (06) | DRG 291 ==
LOC: ERS 12:59 → 2SW 15:58 → OBSVTOIN 06-30 08:24
PROVIDERS: ADMIT Internal Medicine; ATTEND Student in an Organized Health Care Education/Training Program
DX: I11.0 Hypertensive heart disease with heart failure (principal); I50.33 Acute on chronic diastolic (congestive) heart failure; J96.01 Acute respiratory failure with hypoxia; J44.1 Chronic obstructive pulmonary disease with (acute) exacerbation; F17.210 Nicotine dependence, cigarettes, uncomplicated; M10.9 Gout, unspecified; F41.9 Anxiety disorder, unspecified; F32.A Depression, unspecified; E03.9 Hypothyroidism, unspecified; Z79.899 Other long term (current) drug therapy; Z79.890 Hormone replacement therapy; Z98.1 Arthrodesis status; Z98.890 Other specified postprocedural states; Z98.891 History of uterine scar from previous surgery; Z90.2 Acquired absence of lung [part of]; Z71.6 Tobacco abuse counseling
CPT/HCPCS: 36415; 71045; 80048; 80053; 83880; 84484; 85025; 93005; 93306; 93970; 94640; 96365; 96366; 96375; J1120; J1650; J1940; J1956; J3475; J7512; J7620